=== PATIENT | female | born 1975 | race Caucasian/White ===

== ENCOUNTER 2022-01-31 12:12 | Emergency (ER) | payer OTHER, SELFPAY ==
[2022-01-31 12:16] VITALS: BP 131/83; PULSE 72; RESP 20; TEMP 36.6; O2SAT 100
--- NOTE | 2022-01-31 12:38 | ED.URI ---
HPI - URI/Sore Throat General Chief Complaint: Upper Respiratory Infection Stated Complaint: Ear Pain/Sore Throat Time Seen by Provider: 01/31/22 12:26 Source: patient and RN notes reviewed Mode of arrival: ambulatory Limitations: no limitations History of Present Illness HPI Narrative: Patient presents today with a 10-day history of nasal congestion and pressure, productive cough with white sputum, headache, rhinorrhea, shortness of breath. Denies fever. Patient has been taking Tylenol Cold medication, Mucinex without relief. History of COPD. Smokes half pack per day. MD elicited complaint: cough, nasal congestion and sinus pain Related Data Home Medications Medication Instructions Recorded Confirmed alprazolam 0.5 mg PO BID 01/31/22 01/31/22 armodafinil 250 mg PO DAILY 01/31/22 01/31/22 atorvastatin 20 mg PO DAILY 01/31/22 01/31/22 desvenlafaxine succinate 1 mg PO DAILY 01/31/22 01/31/22 fluoxetine 40 mg PO DAILY 01/31/22 01/31/22 metoprolol succinate 50 mg PO DAILY 01/31/22 01/31/22 umeclidinium-vilanterol [Anoro 1 inh INHALATION HS 01/31/22 01/31/22 Ellipta] zolpidem 10 mg PO DAILY 01/31/22 01/31/22 Allergies Allergy/AdvReac Type Severity Reaction Status Date / Time No Known Allergies Allergy Unverified 01/31/22 12:14 Review of Systems Review of Systems: CONSTITUTIONAL: Denies body aches, fever, chills, or sweats. EYES: Denies visual changes, redness, or discharge. ENT: Denies rhinorrhea, sore throat, or otalgia.+ Congestion, sinus pressure, rhinorrhea CARDIOVASCULAR: Denies chest pain, palpitations, or edema. RESPIRATORY: + Cough, shortness of breath GASTROINTESTINAL: Denies abdominal pain, nausea, vomiting, or diarrhea. GENITOURINARY: Denies dysuria or hematuria. SKIN: Denies rash, itching, or wounds. MUSCULOSKELETAL: Denies back pain, joint pain, or myalgia. NEUROLOGIC: Denies numbness, tingling, or weakness.+ Headache PSYCH: Denies depression or anxiety. [facility] Past Medical History Medical History (Updated 01/31/22 @ 12:42 by Kala Phelps, [facility], ) COPD (chronic obstructive pulmonary disease) High cholesterol Social History Social History (Updated 01/31/22 @ 12:39 by Kala Phelps, [facility], ) Smoking packs per day: 0.5 Smoking cigarettes per day: 10.0 Smoking status: Current every day smoker Tobacco type: cigarettes Comments At time of signature, I have reviewed and agree with nursing past medical, surgical, social and family history unless otherwise noted. Please see nursing chart for further information. There is no relevant family history pertinent to the presenting complaint Exam Narrative: GENERAL: Mildly ill-appearing, well-nourished, and in no acute distress. HEAD: Normocephalic, atraumatic. EYES: EOMI. No redness or drainage. Conjunctivae normal. ENT: Mucous membranes pink and moist. Nares congested. Bilateral frontal and maxillary sinus tenderness. No rhinorrhea. TMs normal bilaterally. Throat normal. Uvula midline. NECK: Normal AROM. Supple. No lymphadenopathy. CHEST: No respiratory distress. Clear to auscultation. HEART: Regular rate and rhythm. No murmur appreciated. Normal peripheral pulses. EXTREMITIES: Normal range of motion. No edema. SKIN: Warm, dry, no rash. Capillary refill normal. Normal skin turgor. NEURO: No focal deficits. Alert and oriented x3. Gait steady. PSYCH: Normal affect. No signs of depression or anxiety. Course Course Level of Care: Express Care Visit Vital Signs Vital signs: Vital Signs Temperature 97.9 F 01/31/22 12:16 Pulse Rate 72 01/31/22 12:16 Respiratory Rate 20 01/31/22 12:16 Blood Pressure 131/83 01/31/22 12:16 Pulse Oximetry 100 01/31/22 12:16 Temperature 97.9 F 01/31/22 12:16 Pulse Rate 72 01/31/22 12:16 Respiratory Rate 20 01/31/22 12:16 Blood Pressure 131/83 01/31/22 12:16 Pulse Oximetry 100 01/31/22 12:16 Reviewed. Pt has been instructed to follow up with her PCP jarret
== END 2022-01-31 12:45 | disposition home or self-care (01) ==
PROVIDERS: Emergency Provider Nurse Practitioner
DX: J44.1 Chronic obstructive pulmonary disease with (acute) exacerbation (principal); J01.90 Acute sinusitis, unspecified; E78.00 Pure hypercholesterolemia, unspecified; F17.200 Nicotine dependence, unspecified, uncomplicated
CPT/HCPCS: 99213; G0463

== ENCOUNTER 2022-10-11 08:16 | Emergency (ER) | payer OTHER, SELFPAY ==
[2022-10-11 08:45] VITALS: BP 123/77; PULSE 91; RESP 20; TEMP 37.2; O2SAT 100
--- NOTE | 2022-10-11 08:59 | ED.URI ---
HPI - URI/Sore Throat General Chief Complaint: Upper Respiratory Infection Stated Complaint: Ear Pain/Congestion Time Seen by Provider: 10/11/22 09:00 Source: patient, RN notes reviewed and old records reviewed Mode of arrival: ambulatory Limitations: no limitations History of Present Illness HPI Narrative: 47-year-old female who presents to [facility] with complaints known exposure to flu on Saturday with symptoms starting later that day which include ear pain, chills, fevers up to 101F, body aches, headache,cough and states that chest feels like it is on fire.Patient reports that she has been taking Coricidin brand decongestant. patient reports that she has not had Covid vaccinations or flu shot MD elicited complaint: other (flu symptoms) Onset (ago): day(s) (2) Pain scale (0-10): 8 Treatments prior to arrival: other (Coricidin cold medication) Related Data Home Medications Medication Instructions Recorded Confirmed alprazolam 0.5 mg tablet 0.5 mg PO BID 01/31/22 10/11/22 armodafinil 250 mg tablet 250 mg PO DAILY 01/31/22 10/11/22 atorvastatin 20 mg tablet 20 mg PO DAILY 01/31/22 10/11/22 desvenlafaxine succinate 50 mg 1 mg PO DAILY 01/31/22 10/11/22 tablet,extended release 24 hr fluoxetine 40 mg capsule 40 mg PO DAILY 01/31/22 10/11/22 metoprolol succinate 50 mg 50 mg PO DAILY 01/31/22 10/11/22 tablet,extended release 24 hr umeclidinium 62.5 mcg-vilanterol 1 inh inhalation HS 01/31/22 10/11/22 25 mcg/actuation powdr for inhalation (Anoro Ellipta) zolpidem 10 mg tablet 10 mg PO DAILY 01/31/22 10/11/22 Allergies Allergy/AdvReac Type Severity Reaction Status Date / Time No Known Allergies Allergy Verified 10/11/22 08:50 Review of Systems Review of Systems: CONSTITUTIONAL:Reports malaise, chills, sweats, or fever. EYES: Denies visual changes, redness, or discharge. ENT: Reports rhinorrhea, congestion, sinus pain, otalgia and sore throat. CARDIOVASCULAR: Denies chest pain, palpitations, or edema. RESPIRATORY: Reports cough.? Denies dyspnea. GASTROINTESTINAL: Denies abdominal pain, nausea, vomiting, diarrhea SKIN: Denies rash or itching. MUSCULOSKELETAL: Reports myalgia. NEUROLOGIC: Reports headache. All systems reviewed & are unremarkable except as noted in HPI and below PMFSH Past Medical History Medical History COPD (chronic obstructive pulmonary disease) High cholesterol Social History Social History Smoking packs per day: 0.5 Smoking cigarettes per day: 10.0 Smoking status: Current every day smoker Tobacco type: cigarettes Comments At time of signature, agree with nursing past medical, surgical, social and family history. There is no relevant family history pertinent to the presenting complaint Exam Narrative: GENERAL: Well-appearing, well-nourished, and in no acute distress. HEAD: Normocephalic EYES: PERRLA, conjunctivae clear ENT: Nares clear, turbinates edematous and erythematous, clear discharge. Mucous membranes moist. TM pearly ellington with dull light reflex bilaterally; no tragal tenderness. Oropharynx erythematous without lesions. Tonsils not enlarged and without exudate, no drooling, no hoarseness, no trismus, uvula midline.post nasal discharge NECK: Supple. No lymphadenopathy CHEST: Clear to auscultation, breath sounds equal. No wheezing, rhonchi, rales, or stridor. No respiratory distress, speaks in full sentences. dry cough, SAO2 100% on room air HEART: Regular rate and rhythm. No murmur heard. SKIN: Warm, dry, no rash. NEURO: Alert and oriented x3. PSYCH: Normal mood and affect Course Course Emergency Course: Patient is aware of diagnosis, understands and agrees to treatment plan.? Anticipatory guidance given.? Patient agrees to follow-up as directed and is aware of reasons to seek care at the emergency department. Portions of thi
== END 2022-10-11 09:44 | disposition home or self-care (01) ==
PROVIDERS: Emergency Provider Registered Nurse
DX: J11.1 Influenza due to unidentified influenza virus with other respiratory manifestations (principal); F17.210 Nicotine dependence, cigarettes, uncomplicated; J44.9 Chronic obstructive pulmonary disease, unspecified; E78.00 Pure hypercholesterolemia, unspecified
CPT/HCPCS: 99213; G0463

== ENCOUNTER 2023-01-20 11:58 | Emergency (ER) | payer OTHER, SELFPAY ==
[2023-01-20 12:18] VITALS: BP 123/86; PULSE 84; RESP 20; TEMP 36.8; O2SAT 96
[2023-01-20 12:24] VITALS: BP 123/86; PULSE 84; RESP 20; TEMP 36.8; O2SAT 96
--- NOTE | 2023-01-20 13:07 | ED.GENADULT ---
HPI - General Adult General Chief complaint: Headache Stated complaint: migraine / indegestion Source: patient Mode of arrival: ambulatory Limitations: no limitations History of Present Illness HPI narrative: Patient presents for evaluation of headache for the last 3 days. She has an underlying history of migraines and this feels similar. She has not had a headache in several years was not on any pharmacotherapy at home on a regular basis. She states the pain is global, throbbing, 8/10 in severity. She has associated photophobia, nausea and vomiting. She tried taking ibuprofen, Tylenol, Excedrin for her symptoms. Denies any neurological changes. Related Data Home Medications Medication Instructions Recorded Confirmed alprazolam 0.5 mg tablet 0.5 mg PO BID 01/31/22 01/20/23 armodafinil 250 mg tablet 250 mg PO DAILY 01/31/22 01/20/23 atorvastatin 20 mg tablet 20 mg PO DAILY 01/31/22 01/20/23 desvenlafaxine succinate 50 mg 1 mg PO DAILY 01/31/22 01/20/23 tablet,extended release 24 hr fluoxetine 40 mg capsule 40 mg PO DAILY 01/31/22 01/20/23 metoprolol succinate 50 mg 50 mg PO DAILY 01/31/22 01/20/23 tablet,extended release 24 hr umeclidinium 62.5 mcg-vilanterol 1 inh inhalation HS 01/31/22 01/20/23 25 mcg/actuation powdr for inhalation (Anoro Ellipta) zolpidem 10 mg tablet 10 mg PO DAILY 01/31/22 01/20/23 Allergies Allergy/AdvReac Type Severity Reaction Status Date / Time No Known Allergies Allergy Verified 01/20/23 12:22 Review of Systems Review of Systems: CONSTITUTIONAL: Denies fever, chills, or sweats. EYES: Reports photophobia. Denies drainage from the eyes ENT: Denies rhinorrhea, congestion, sore throat, or otalgia. CARDIOVASCULAR: Denies chest pain, palpitations, or edema. RESPIRATORY: Denies cough or dyspnea. GASTROINTESTINAL: Reports nausea and vomiting. Denies abdominal pain or diarrhea. GENITOURINARY: Denies dysuria or hematuria. SKIN: Denies rash or itching. MUSCULOSKELETAL: Denies back pain, joint pain, or myalgia. NEUROLOGIC: Reports headache. Denies numbness, dizziness, or weakness. PSYCHIATRIC: Denies anxiety or depression. [facility] Past Medical History Medical History (Updated 01/20/23 @ 13:44 by BARBARA RamseyP, ) COPD (chronic obstructive pulmonary disease) High cholesterol Migraine Surgical History Surgical History (Reviewed 01/20/23 @ 13:[address] [facility] [place], ) History of History of hysterectomy Family History Family History (Reviewed 01/20/23 @ 13:[address] [facility] [place], ) Mother Family history non-contributory Social History Social History (Updated 01/20/23 @ 13:[address] [facility] [place], ) Smoking packs per day: 0.5 Smoking cigarettes per day: 10.0 Smoking status: Current every day smoker Tobacco type: cigarettes Substance use: current Substance use type: marijuana Gender identity (if verbalized by the patient): Female Spiritual care concerns: No Exam Narrative: GENERAL: Well-appearing, well-nourished, and in no acute distress. HEAD: Normocephalic, atraumatic. EYES: Wearing sunglasses during exam. PERRLA and EOMI. ENT: Nares clear, no rhinorrhea or epistaxis. Mucous membranes moist. Oropharynx without tonsillar hypertrophy exudate or other lesions. Bilateral TMs pearly ellington nonbulging NECK: Supple. No adenopathy or masses. No carotid bruits or JVD CHEST: Clear to auscultation. No respiratory distress. No wheezes rales or rhonchi HEART: Regular rate and rhythm. No murmur heard. Normal peripheral pulses. ABDOMEN: Soft, nontender, nondistended, normal active bowel sounds. EXTREMITIES: Normal range of motion. No edema. SKIN: Warm, dry, no rash. NEURO: No focal deficits. Alert and oriented x3. PSYCH: Normal mood and affect. Course Course Emergency Course: THIS IS A 47-YEAR-OLD FEMALE WHO PRESENTED FOR EVALUATION OF A HEADACHE WHICH IS CONSISTENT WITH HER NORMAL MIGRAINE PATTERN. SHE WAS
[2023-01-20] MEDS: KETOROLAC (*BKC) 60 MG/2 ML VIAL IM (13:11)
[2023-01-20] MEDS: ONDANSETRON HCL ODT 4 MG TABLET PO (13:11)
== END 2023-01-20 13:49 | disposition home or self-care (01) ==
PROVIDERS: Emergency Provider Nurse Practitioner
DX: G43.909 Migraine, unspecified, not intractable, without status migrainosus (principal); J44.9 Chronic obstructive pulmonary disease, unspecified; F17.210 Nicotine dependence, cigarettes, uncomplicated
CPT/HCPCS: 96372; 99213; A9270; G0463; J1885

== ENCOUNTER 2025-01-02 12:16 | Emergency (ER) | payer OTHER, SELFPAY ==
--- OUTSIDE RECORDS SUMMARY | 2025-01-02 12:19 | XMS_ITS | Patient Health Summary ---
Author Organization [facility] Address [address] [place] [address] Care Team Providers Care Paper [employer]one Grader Name Role Phone Unavailable Primary Care Provider Unavailabl e Note from [facility],non-owned Affiliates and Associated Physician Practices is amultiple site organization consisting of ambulatory clinics and hospital sitesin [place], [place], [place] and [place]. This disclosure is being madepursuant to the Care Everywhere program and may not contain all information available regarding this patient. Last updated 18.[facility] Social History Tobacco Use Types Packs/Day Years Used Date Smoking Tobacco: Never Assessed Sex and Gender Information Value Date Recorded Sex Assigned at Not on file Gender Identity Not on file Sexual Orientation Not on file Procedures * DERMATOPATHOLOGY(Performed 09/08/2020) Results * DERMATOPATHOLOGY (09/08/2020 12:00 AM SE[employer]ONAL CUST[employer]ER SERVICE ASSOCIATE) Case Report Dermatopathology Report Case: [id number] Authorizing Provider: Liliana Kline MD Collected: 09/08/2020 12:00 AM Ordering Location: [facility] DermPath Lab Received: 09/08/2020 11:12 AM Pathologist: Balaji Gallegos MD Specimen: Skin, left eyelid margin 0 5:13 PM [facility] DERMATOPATHOLOGY [facility]ORAT[facility] Final Diagnosis Specimen A. SKIN, left eyelid margin: SEBORRHEIC KERATOSIS, IRRITATED (L82.0) 0 5:13 PM [facility] DERMATOPATHOLOGY [facility] Clinical History Crusted pink papule ISK R/O SCC. 0 5:13 PM [facility] DERMATOPATHOLOGY [facility] Gross Description Specimen A: Received is one formalin filled container labeled with the patient's name and designated left eyelid margin. The specimen consists of a shave measuring [id number]. Jar 0. 0 5:13 PM [facility] DERMATOPATHOLOGY [facility] Microscopic Description Specimen A. SKIN, left eyelid margin: There is acanthosis consisting of fairly uniform squamous cells with eosinophilic cytoplasm and squamous eddies. 0 5:13 PM [facility] DERMATOPATHOLOGY [facility]OR[facility] Disclaimer An external and internal positive and negative controls are appropriate for the histochemical, immunohistochemical and immunofluorescence stain(s) in this case (if any), except where stated explicitly. The performance characteristics of the stain(s) cited in this report were developed and its performance characteristic determined by the Dermatopathology Laboratory at [facility], directed by Dr. Bolivar Gallegos. These tests need not be, and therefore are not, approved by the [place] Food and Drug Administration. The tests are used for clinical purposes. Billing Codes Specimen Charges Stain Charges 69797 1 0 5:13 PM [facility]ERMATOPATH[facility]Y [facility] Embedded Images 0 5:13 PM [facility]ERMATOP[facility]Y [facility] Pathology/Cytolog y TISSUE SPECIMEN FROM SKIN / Unknown 09/08/2020 09/08/2020 11:12 AM SE[employer]ONAL CUST[employer]ER SERVICE ASSOCIATE Liliana Kline MD LAB - PATHOLOGY/CYTO LOGY ORDERABLES DERMATOPATHOLOGY LABORATORY [facility] - Department of Dermatology [address], [address] [phone]
--- OUTSIDE RECORDS SUMMARY | 2025-01-02 12:19 | XMS_ITS | Clinical Summary ---
Author Organization [facility] Address [address] [place] [address] Phone Care Team Providers Care Couturiere Name Role Phone JAIME SNIDER MD Primary Care Provider [phone] Reason for Visit and Chief Complaint The Chief Complaint is: Check up. She wants to talk about alergies. She has tried most otc meds Problems Includes: Problems addressed during this encounter and other active Problems Current Visit Onset Date Resolved Date Provider Viri n Status Esophagitis Chronic Reflux 02/14/2024 MARTA JOHNSON PA-C Active Last Documented On 02/14/2024 8:55AM ; [facility] Note: Unchanged Allergic Rhinitis 02/14/2024 MARTA JOHNSON PA-C Active Last Documented On 02/14/2024 8:55AM ; [facility] Note: Unchanged Hyperlipidemia 03/20/2022 THANH Estrada LIRIANOK INS PA-C Active Last Documented On 2 5:01PM ; [facility] Tobacco Use 06/21/2020 02/05/2023 MARTA JOHNSON PA-C R esolved Last Documented On 3 9:44AM ; [facility] Essential Hypertension Benign 09/27/2019 ANILA JOHNSON PA-C Inactive Last Documented On 2 7:17PM ; [facility] Tobacco Use 05/05/2017 KIRT LARSON MD Karey ctive Last Documented On 9 5:29PM ; [facility] Essential Hypertension Benign 05/25/2016 KIRT LARSON MD Active Last Documented On 6 11:45AM ; [facility] Chronic Bronchitis - Simple 05/25/2016 KIRT LARSON MD Active Last Documented On 7 8:53AM ; [facility] Tobacco Use 03/01/2016 KIRT LARSON MD Act sandie Last Documented On 7 8:54AM ; [facility] Past Visits Onset Date Resolved Date Provider Condition Status Bipolar Disorder Nos 07/01/2020 KIRT BLAIR MD Active Last Documented On 0 9:25AM ; [facility] Opioid Use - Uncomplicated 12/18/2019 KIRT HYMAN MD Active Last Documented On 0 3:16PM ; [facility] Cervicalgia 09/27/2019 KIRT LARSON MD Act sandie Last Documented On 9 10:46PM ; [facility] Chronic Daily Headache 11/12/2018 KIRT MCCLOUD MD Active Last Documented On 9 7:27PM ; [facility] Arthralgia Knee / Patella / Tibia / Fibula 09/01/2017 KIRT LARSON MD Active Last Documented On 7 5:29PM ; [facility] Sleep Disorder Circadian Rhy thm, Shift Work Type 03/01/2016 KIRT LARSON MD Active Last Documented On 6 10:28AM ; [facility] Adjustment Disorder with Anxiety 10/24/2015 RAZA LARSON MD Active Last Documented On 6 10:29AM ; [facility] Primary Insomnia 10/24/2015 KIRT Muniz Active Last Documented On 6 10:28AM ; [facility] Sciatica Right Sided 10/24/2015 KIRT BLAIR MD Active Last Documented On 6 10:29AM ; [facility] Plan of Treatment Start montelukast for allergy symptoms. Increase atorvastatin. Rybelsus samples given to try. Discussed 30 min before food/drink administration. Ubrelvy sample given. Encouraged patient to cut back on soda intake, increase water intake. RTC 3 months, sooner if needed. - Last Documented On 02/14/2024 9:28AM ; [facility] Pending Tests Order Diagnosis Results Due Ordering P rovider Therapy - Physical Therapy Back Lumbago with sciatica, right side 05/29/23 MARTA JOHNSON PA-C Last Documented On 3 9:35AM ; [facility] Radiology @ [facility] - CT Scan Lumbar Spine CT w/o contrast Lumbago with sciatica, right side 07/27/23 MARTA JOHNSON PA-C Last Documented On 3 9:43AM ; [facility] Assessments Includes: Assessments from this encounter Findings - [Z72.0 - Tobacco use] Tobacco use - Last Documented On 02/14/2024 9:28AM ; [facility] - [I10 - Essential (primary) hypertension] Benign essential hypertension - Last Documented On 02/14/2024 9:28AM ; [facility] - [J41.0 - Simple chronic bronchitis] Simple chronic bronchitis - Last Documented On 02/14/2024 9:28AM ; [facility] - [K21.00 - Gastro-esophageal reflux disease with esophagitis, without bleeding] Chronic reflux esophagitis - Last Documented On 02/14/2024 9:28AM ; [facility] - [E78.5 - Hyperlipidemia, unspecified] Hyperlipidemia - Last Documented On 02/14/2024 9:28AM ; [facility] Medical Equipment - Implanted Devices Includes: Current Devices No Medical Equipment Recorded Medications Includes: Medications discussed during this encounter and other current Medications Discontinued / Stopped on this date JAIME SNIDER MD on 11/18/2023 Zolpidem Tartrate 10 MG Oral Tablet Provi avery: JAIME SNIDER MD Diagnosis: Primary insomnia Last Documented On 8:56AM By Marta Johnson PA-C ; [facility] Ubrelvy 100 MG Oral Tablet Provider: Lorraine JOHNSON PA-C Diagnosis: Last Documented On 02/14/2024 8:28AM By Amirah MYERS ; [facility] Quviviq 25 MG Oral Tablet Provider: TOMMY JOHNSON PA-C Diagnosis: Primary insomnia Last Documented On 02/14/2024 8:27AM By Amirah MYERS ; [facility] New / Renewed during this visit MARTA JOHNSON PA-C on 02/14/2024 Zolpidem Tartrate 10 MG Oral Tablet Provider: MARTA Soto 30 day supply: 30 tablet, 0 refills Diagnosis: Primary insomnia TAKE 1 TABLET BY MOUTH EVERY DAY AT BEDTIME Pharmacy: [address], [address] - Last Documented On 4 8:10AM By Marta Johnson PA-C ; [facility] Omeprazole 20 MG Oral Capsule Delayed Release Provider: MARTA Berrios PA-C 30 day supply: 30 capsule, 5 refills Diagnosis: Gastro-esophageal reflux dis with esophagitis, without bleed TAKE 1 CAPSULE BY MOUTH EVERY DAY Pharmacy: [address], [address] - Last Documented On 4 8:57AM By Marta Johnson PA-C ; [facility] Atorvastatin Calcium 40 MG Oral Tablet Provider: MARTA JOHNSON PA-C 30 day supply: 30 tablet, 5 refills Diagnosis: Hyperlipidemia, unspecified One tablet at bed time Pharmacy: [facility] [address], [address] - Last Documented On 4 8:57AM By Marta Johnson PA-C ; [facility] Montelukast Sodium 10 MG Oral Tablet Provider: MARTA JOHNSON PA-C 30 day supply: 30 tablet, 5 refills Diagnosis: Allergic rhinitis, unspecified One tablet daily Pharmacy: [address], [address] - Last Documented On 4 8:57AM By Marta Johnson PA-C ; [facility] Rybelsus 3 MG Oral Tablet Provider: TOMMY JOHNSON PA-C 30 day supply: 30 tablet, 1 refills Diagnosis: Morbid (severe) obesity due to excess calories 1 tab daily Last Documented On 4 9:28AM By Marta Johnson PA-C ; [facility] Ubrelvy 100 MG Oral Tablet Provider: MARTA Soto 30 day supply: 2 tablet, 0 refills Diagnosis: Morbid (severe) obesity due to excess calories take 1 tab at onset of heada melly. repeat after 2 hours if needed Last Documented On 4 9:28AM By Marta Johnson PA-C ; [facility] Current Medications (continue as prescribed) Zolpidem Tartrate 10 MG Oral Tablet 04/10/2024 Provider: MARTA Soto Diagnosis: Primary insomnia TAKE 1 TABLET BY MOUTH EVERYDAY AT BEDTIME Last Documented On 4 11:00AM By Marta Johnson PA-C ; [facility] Atorvastatin Calcium 20 MG Oral Tablet 04/02/2024 Provider: MARTA Soto Diagnosis: Mixed hyperlipid emia TAKE 1 TABLET BY MOUTH EVERY DAY Last Documented On 4 8:24AM By Marta Johnson PA-C ; [facility] Ubrelvy 100 MG Oral Tablet 11/14/2023 Provider: MARTA Soto Diagnosis: Migraine w/o aur a, intractable, without status migrainosus take 1 tab at onset of migra ine. may repeat in 2 hours. max 2 tabs in 24 hours Last Documented On 4 3:43PM By Marta Johnson PA-C ; [facility] Metoprolol Succinate ER 50 MG Oral Tablet Extended Release 24 Hour 04/29/2023 Provider: MARTA HARRELL PA-C Diagnosis: Essential (prima ry) hypertension TAKE 1 TABLET BY MOUTH EVERY DAY Last Documented On 3 8:35AM By Marta Johnson PA-C ; [facility] Xanax 0.25 MG Oral Tablet 10/24/2022 Provider: Diagnosis: Bianca Lealan at [place] Last Documented On 2 9:53AM By Marta Johnson PA-C ; [facility] hydrOXYzine HCl 25 MG Oral Tablet 10/24/2022 Provide r: Diagnosis: Bianca Lealan at [place] Last Documented On 2 9:54AM By Marta Johnson PA-C ; [facility] Medications Administered Includes: Administered Medications from this encounter No Administered Medications Recorded Vital Signs Includes: Vital Signs from this encounter Vital Name 02/14/2024 08:26A Blood Pressure Sitting L 132/98 BP Cuff Size Regular Pulse Rate-Sitting (bpm) 90 Respiration Rate (breaths/min) 22 Temp-Oral (F) 98.1 Height (in) 62 Weight (lb) 185 Body Mass Index 33.8 Body Surface Area 1.8 Oxygen Saturation (%) 96 Last Documented: On 02/14/2024 8:30AM ; [facility] Results Includes: Results discussed during this encounter No Results Recorded For Specified Dates History of Present Illness Includes: History of Present Illness from this encounter JOANA LEDEZMA is a 48 year old female. - Allergy list reviewed - Medication list reviewed - Systemic symptoms - No head symptoms - Otolaryngeal symptoms - No cardiovascular symptoms - No pulmonary symptoms - No gastrointestinal symptoms - No genitourinary symptoms - No musculoskeletal symptoms - No psychological symptoms Patient in clinic for check up. She is doing well overall. She has tried OTC medications for allergy symptoms without relief. Would like to try rx montelukast. Patient was never sent increased dose of atorvastatin after last labs - sending today. She is needing ambien and omeprazole filled. Patient would like to discuss options for weight. She did see Courtney once but then needed to be rescheduled and has not been back. She was given oral medication that did not work. Patient did have mild success with ozempic in the past. She is walking laps at work multiple times/day. Patient states she does not eat much/practically doing intermittent fasting without trying. She does drink a lot of soda each day. Reports filling her 60oz cup TID with soda. Not drinking much water. Continues to smoke. Ubrelvy worked better for migraine. Patient states rx at pharmacy was >$150 and could not knot picker cloth. BP elevated today. Social History Description Last Updated Excessive carbohydrate intake 08/20/2023 Last Documented On 4 8:25AM ; [facility] Food and nutrition-related knowledge def icit 08/20/2023 Last Documented On 4 8:25AM ; [facility] Inappropriate diet and eating habits Last Documented On 4 8:25AM ; [facility] Alcohol --seldom 03/20/2022 Last Documented On 4 8:25AM ; [facility] Drug use --THC 2x/wks 03/20/2022 Last Documented On 4 8:25AM ; [facility] Smoking status : Current everyday smoker 1/2 ppd 03/20/2022 Last Documented On 4 8:25AM ; [facility] Current smoker 12/11/2021 Last Documented On 4 8:25AM ; [facility] Smoker 07/25/2020 Last Documented On 4 8:25AM ; [facility] Social history unchanged 10/24/2015 Last Documented On 4 8:25AM ; [facility] Currently 08/22/2015 Last Documented On 4 8:25AM ; [facility] Tobacco use 08/22/2015 Last Documented On 4 8:25AM ; [facility] Procedures and Surgical History Includes: Procedures from this encounter Procedures Code Diagnosis Performing Provider Service L ocation Service Date review of medications documented 1160F Last Documented On 4 8:25AM ; [facility] Medical History Includes: Medical History addressed during this encounter Description Last Updated LMP: 2002 10/08/2022 Last Documented On 4 8:25AM ; [facility] No recent change in medical history 09/28 Last Documented On 4 8:25AM ; [facility] Family History Includes: Family History addressed during this encounter Description Last Updated Family history unchanged 10/24/2015 Last Documented On 4 8:25AM ; [facility] Review of Systems Includes: Review of Systems from this encounter Systemic: No fever, no chills, and no recent weight change. Head: Headache and sinus pain. Neck: No neck pain. Otolaryngeal: No earache, no nasal discharge, and no sore throat. Cardiovascular: No chest pain or discomfort and no palpitations. Pulmonary: No dyspnea and no cough. Gastrointestinal: No nausea, no vomiting, no abdominal pain, and no melena. No diarrhea. Musculoskeletal: No localized joint pain. Neurological: No dizziness. Psychological: No anxiety and no depression. Mental Status Includes: Mental Status from this encounter Description No anxiety Functional Status Includes: Functional Status from this encounter No Functional Status Recorded Physical Exam Includes: Physical Exam from this encounter Allergies Includes: Active Allergies No Known Allergies Encounters Encounter Provider Location Date Check-In Time Check-Out Time Diagnosis CHECK UP MARTA JOHNSON PA-C [facility]- 02/14/20 24 8:22AM 8:51AM Chronic Bronchitis - Simple,Esophagit is Chronic Reflux,Essential Hypertension Benign,Hyperlipi demia,Assessment of Tobacco Use Insurance Includes: Active Insurance Policies Plan Name Member ID Group # Subscriber Relationship Effect sandie Dates 1 - [employer] [id number] RK LEDEZMA Self Clinical Notes Includes: Clinical Notes from this encounter * Progress note Date Encounter Last Documented by 02/14/2024 CHECK UP Last documented on 02/14/2024; 9:28 AM, MARTA JOHNSON PA-C; [facility] Active Problems & Conditions - F43.22 - Adjustment Disorder with Anxiety - J30.9 - Allergic Rhinitis - M25.569 - Arthralgia Knee / Patella / Tibia / Fibula - F31.9 - Bipolar Disorder Nos - M54.2 - Cervicalgia - J41.0 - Chronic Bronchitis - Simple - G44.89 - Chronic Daily Headache - K21.00 - Esophagitis Chronic Reflux - I10 - Essential Hypertension Benign - E78.5 - Hyperlipidemia - F11.90 - Opioid Use - Uncomplicated - F51.01 - Primary Insomnia - M54.31 - Sciatica Right Sided - G47.26 - Sleep Disorder Circadian Rhythm, Shift Work Type - Z72.0 - Tobacco Use Chief Complaint The Chief Complaint is: Check up. She wants to talk about alergies. She has tried most otc meds. History of Present Illness RK LEDEZMA is a 48 year old female. - Allergy list reviewed - Medication list reviewed - Systemic symptoms - No head symptoms - Otolaryngeal symptoms - No cardiovascular symptoms - No pulmonary symptoms - No gastrointestinal symptoms - No genitourinary symptoms - No musculoskeletal symptoms - No psychological symptoms Patient in clinic for check up. She is doing well overall. She has tried OTC medications for allergy symptoms without relief. Would like to try rx montelukast. Patient was never sent increased dose of atorvastatin after last labs - sending today. She is needing ambien and omeprazole filled. Patient would like to discuss options for weight. She did see Courtney once but then needed to be rescheduled and has not been back. She was given oral medication that did not work. Patient did have mild success with ozempic in the past. She is walking laps at work multiple times/day. Patient states she does not eat much/practically doing intermittent fasting without trying. She does drink a lot of soda each day. Reports filling her 60oz cup TID with soda. Not drinking much water. Continues to smoke. Ubrelvy worked better for migraine. Patient states rx at pharmacy was >$150 and could not knot picker cloth. BP elevated today. Current Medication - Atorvastatin Calcium 20 MG Oral Tablet TAKE 1 TABLET BY MOUTH EVERY DAY, 30 days, 11 refills - hydrOXYzine HCl 25 MG Oral Tablet Bianca Angel at [place], 0 days, 0 refills - Metoprolol Succinate ER 50 MG Oral Tablet Extended Release 24 Hour TAKE 1 TABLET BY MOUTH EVERY DAY, 30 days, 11 refills - Omeprazole 20 MG Oral Capsule Delayed Release TAKE 1 CAPSULE BY MOUTH EVERY DAY, 30 days, 5 refills - Ubrelvy 100 MG Oral Tablet take 1 tab at onset of migraine. may repeat in 2 hours. max 2 tabs in 24 hours, 30 days, 5 refills - Xanax 0.25 MG Oral Tablet One tablet twice a day Bianca Angel at [place], 0 days, 0 refills Past Medical/Surgical History Reported: No recent change in medical history and LMP: 2001. Social History Social history unchanged. Current diet: Inappropriate diet and eating habits, food and nutrition-related knowledge deficit, and excessive carbohydrate intake. Tobacco use: Current smoker, smoker, and smoking status: Current everyday smoker 1/2 ppd. Alcohol: Alcohol --seldom. Drug Use: Drug use --THC 2x/wks. Marital: Currently . Allergies - No Known Allergies Family History Family history unchanged Review Of Systems Systemic: No fever, no chills, and no recent weight change. Head: Headache and sinus pain. Neck: No neck pain. Otolaryngeal: No earache, no nasal discharge, and no sore throat. Cardiovascular: No chest pain or discomfort and no palpitations. Pulmonary: No dyspnea and no cough. Gastrointestinal: No nausea, no vomiting, no abdominal pain, and no melena. No diarrhea. Musculoskeletal: No localized joint pain. Neurological: No dizziness. Psychological: No anxiety and no depression. Physical Findings - Vitals taken 02/14/2024 08:26 am BP-Sitting L 132/98 mmHg BP Cuff Size Regular Pulse Rate-Sitting 90 bpm Respiration Rate 22 per min Temp-Oral 98.1 F Height 62 in Weight 185 lbs Body Mass Index 33.8 kg/m2 Body Surface Area 1.8 m2 Oxygen Saturation 96 % General Appearance: - Well developed. - Well nourished. - In no acute distress. Ears: General/bilateral: External Auditory Canal: - External auditory meatus normal. Tympanic Membrane: - Normal. Nose: General/bilateral: Discharge: - No nasal discharge. Sinus Tenderness: - No sinus tenderness. Pharynx: Oropharynx: - Normal. - Tonsils showed no abnormalities. Lungs: - Normal breath sounds/voice sounds. - No wheezing was heard. Cardiovascular: Heart Rate And Rhythm: - Normal. Murmurs: - No murmurs were heard. Abdomen: Auscultation: - Bowel sounds were normal. Palpation: - Abdominal non-tender. Assessment - [Z72.0 - Tobacco use] Tobacco use - [I10 - Essential (primary) hypertension] Benign essential hypertension - [J41.0 - Simple chronic bronchitis] Simple chronic bronchitis - [K21.00 - Gastro-esophageal reflux disease with esophagitis, without bleeding] Chronic reflux esophagitis - [E78.5 - Hyperlipidemia, unspecified] Hyperlipidemia Plan StartCited - Allergic rhinitis, unspecified Montelukast Sodium 10 MG tablet One tablet daily, 30 days, 5 refills EndCited StartCited - Gastro-esophageal reflux dis with esophagitis, without bleed Omeprazole 20 MG capsule TAKE 1 CAPSULE BY MOUTH EVERY DAY, 30 days, 5 refills EndCited StartCited - Hyperlipidemia, unspecified Atorvastatin Calcium 40 MG tablet One tablet at bed time, 30 days, 5 refills EndCited StartCited - Morbid (severe) obesity due to excess calories Rybelsus 3 MG tablet 1 tab daily, 30 days, 1 refills Ubrelvy 100 MG tablet take 1 tab at onset of headache. repeat after 2 hours if needed, 30 days, 0 refills EndCited StartCited - Primary insomnia Zolpidem Tartrate 10 MG tablet TAKE 1 TABLET BY MOUTH EVERYDAY AT BEDTIME, 30 days, 0 refills EndCited Start montelukast for allergy symptoms. Increase atorvastatin. Rybelsus samples given to try. Discussed 30 min before food/drink administration. Ubrelvy sample given. Encouraged patient to cut back on soda intake, increase water intake. RTC 3 months, sooner if needed. Practice Management Review of medications documented. Health Reminders - Assess Blood Pressure satisfied 02/14/2024. - Assess BMI satisfied 02/14/2024. - Assess Tobacco Use satisfied 02/14/2024.
--- OUTSIDE RECORDS SUMMARY | 2025-01-02 12:19 | XMS_ITS ---
Author Organization [facility] Address [address] [place] [address] Care Team Providers Care Engine Room Helper Name Role Phone Bianca Angel Primary Care Provider REASON FOR VISIT New Refill Request Social History Sex Assigned At : Social History Observation Description Sex Assigned At Female Encounters Encounter Location Date Provider Diagnosis [address] [place] [address] 12/31/2024 Bianca Angel Plan Of Treatment Next Appt Details Provider Name:Bianca william, 01/11/2025 03:00:00 PM, [address] [place] [address] , [place], [address], Progress Notes * PER CarolineDOB:1975 ( 49 yo F)Acc No.[id number]:12/31/2024 Patient: Caroline DAUGHERTY :1975 A ge:49 Y S ex:Female Address:[address] [place] [address], [id number] * true * Date: Generated for Printi ng/Faxing/eTransmitting on: 0 01/02/2025 12:18 PM PAID SEARCH MANAGER
--- OUTSIDE RECORDS SUMMARY | 2025-01-02 12:19 | XMS_ITS ---
Author Organization [facility] Address [address] [place] [address] Care Team Providers Care Sql Ssrs Ssis Developer Name Role Phone Bianca Angel Primary Care Provider REASON FOR VISIT New Refill Request Medications Medication SIG (Take, Route, Fr equency, Duration) Notes Start Date End Date Status ALPRAZolam 0.25 MG 1 tablet Orally Two to Three times daily for 11 days As needed 12/31/2024 Active Armodafinil 200 MG 1.5 tablet Orally On ce a day for 11 days 12/31/2024 Active rOPINIRole HCl 0.5 MG 1 tablet 1 hour be fore bedtime Orally Once a day for 11 days Ac tive Social History Sex Assigned At : Social History Observation Description Sex Assigned At Female Encounters Encounter Location Date Provider Diagnosis [address] [place] [address] 12/31/2024 Bianca Angel Bipolar 1 disorder F31.9 ; Generalized anxiety disorder F41.1 and Restless leg syndrome G25.81 Assessments Encounter Date Diagnosis (ICD Code) Assessment Notes Treatment Notes Treatment Clinical Notes Section Notes 12/31/2024 Bipolar 1 disorder (ICD-10 - F31.9) 12/31/2024 Generalized anxiety disorder (ICD-10 - F41.1) 12/31/2024 Restless leg syndrome (ICD-10 - G25.81) Plan Of Treatment Medication Medication Name Sig Start Date Stop Date Notes ALPRAZolam 0.25 MG 1 tablet Orally Two to Three times daily for 11 days 12/31/2024 Armodafinil 200 MG 1.5 tablet Orally On ce a day for 11 days 12/31/2024 rOPINIRole HCl 0.5 MG 1 tablet 1 hour be fore bedtime Orally Once a day for 11 days Next Appt Details Provider Name:Bianca Lealesperanza william, 01/11/2025 03:00:00 PM, [address] [facility] , [place], [address], Progress Notes * DARIEN, TrishaDOB:1975 ( 49 yo F)Acc No.[id number]:12/31/2024 Patient: Caroline DAUGHERTY :1975 A ge:49 Y S ex:Female Address:[address] [place] [address], [address] * Refills Refill Armodafinil Tablet, 200 MG, Orally, 16.5 Tablet, 1.5 tablet, Once a day, 11 days, Refills=0 Refill ALPRAZolam Tablet, 0.25 MG, Orally, 27.5, 1 tablet, Two to Three times daily, 11 days, Refills=0 Refill rOPINIRole HCl Tablet, 0.5 MG, Orally, 11, 1 tablet 1 hour before bedtime, Once a day, 11 days, Refills=0 * true * Date: Generated for Seda horta/Daquan/Genevaitting on: 0 01/02/2025 12:19 PM STRUCTURAL FITTER
--- OUTSIDE RECORDS SUMMARY | 2025-01-02 12:19 | XMS_ITS ---
Care Plan - [facility] Created on: January 02, 2025 RK LEDEZMA : 1975 Sex: Female Author Organization [facility] Address [address] [place] [address] Phone Care Team Providers Care Sales Representative Printing Name Role Phone AGATHA ANDRADE, JAIME Dorado Primary Care Provider [phone]
--- OUTSIDE RECORDS SUMMARY | 2025-01-02 12:19 | XMS_ITS | Clinical Summary ---
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 Name Role Phone JAIME SNIDER MD Primary Care Provider [phone] Reason for Visit and Chief Complaint [Patient Encounter] Problems Includes: Problems addressed during this encounter and other active Problems All Visits Onset Date Resolved Date Provider Condition S tatus Esophagitis Chronic Reflux 02/14/2024 ELOISA STOREY PA-C Active Last Documented On 02/14/2024 8:55AM ; [facility] Note: Unchanged Allergic Rhinitis 02/14/2024 ELOISA STOREY PA-C Active Last Documented On 02/14/2024 8:55AM ; [facility] Note: Unchanged Hyperlipidemia 03/20/2022 THANH SAEED PA-C Active Last Documented On 2 5:01PM ; [facility] Bipolar Disorder Nos 07/01/2020 KIRT BLAIR MD Active Last Documented On 0 9:25AM ; [facility] Opioid Use - Uncomplicated 12/18/2019 KIRT HYMAN MD Active Last Documented On 0 3:16PM ; [facility] Cervicalgia 09/27/2019 KIRT LARSON MD Act sandie Last Documented On 9 10:46PM ; [facility] Chronic Daily Headache 11/12/2018 KIRT MCCLOUD MD Active Last Documented On 9 7:27PM ; [facility] Arthralgia Knee / Patella / Tibia / Fibula 09/01/2017 KIRT LARSON MD Active Last Documented On 7 5:29PM ; [facility] Essential Hypertension Benign 05/25/2016 KIRT LARSON MD Active Last Documented On 6 11:45AM ; [facility] Chronic Bronchitis - Simple 05/25/2016 KIRT LARSON MD Active Last Documented On 7 8:53AM ; [facility] Sleep Disorder Circadian Rhy thm, Shift Work Type 03/01/2016 KIRT LARSON MD Active Last Documented On 6 10:28AM ; [facility] Tobacco Use 03/01/2016 KIRT LARSON MD Act sandie Last Documented On 7 8:54AM ; [facility] Adjustment Disorder with Anxiety 10/24/2015 RAZA LARSON MD Active Last Documented On 6 10:29AM ; [facility] Primary Insomnia 10/24/2015 KIRT Muniz Active Last Documented On 6 10:28AM ; [facility] Sciatica Right Sided 10/24/2015 KIRT BLAIR MD Active Last Documented On 6 10:29AM ; [facility] Plan of Treatment No Plan of Treatment Recorded Assessments Includes: Assessments from this encounter No Assessments Recorded Medical Equipment - Implanted Devices Includes: Current Devices No Medical Equipment Recorded Medications Includes: Medications discussed during this encounter and other current Medications Current Medications (continue as prescribed) Zolpidem Tartrate 10 MG Oral Tablet 04/10/2024 Provider: ELIOSA Soto Diagnosis: Primary insomnia TAKE 1 TABLET BY MOUTH EVERYDAY AT BEDTIME Last Documented On 4 11:00AM By Eloisa Storey PA-C ; [facility] Atorvastatin Calcium 20 MG Oral Tablet 04/02/2024 Provider: ELOISA Soto Diagnosis: Mixed hyperlipid emia TAKE 1 TABLET BY MOUTH EVERY DAY Last Documented On 4 8:24AM By Eloisa Storey PA-C ; [facility] Omeprazole 20 MG Oral Capsule Delayed Release 02/14/2024 Provider: ELOISA Berrios PA-C Diagnosis: Gastro-esophagea l reflux dis with esophagitis, without bleed TAKE 1 CAPSULE BY MOUTH EVERY DAY Last Documented On 4 8:57AM By Eloisa Storey PA-C ; [facility] Atorvastatin Calcium 40 MG Oral Tablet 02/14/2024 Provider: ELOISA STOREY PA-C Diagnosis: Hyperlipidemia, unspecified One tablet at bed time Last Documented On 4 8:57AM By Eloisa Storey PA-C ; [facility] Montelukast Sodium 10 MG Oral Tablet 02/14/2024 Provider: ELOISA Soto Diagnosis: Allergic rhiniti s, unspecified One tablet daily Last Documented On 4 8:57AM By Eloisa Storey PA-C ; [facility] Rybelsus 3 MG Oral Tablet 02/14/2024 Provider: TOMMY STOREY PA-C Diagnosis: Morbid (severe) obesity due to excess calories 1 tab daily Last Documented On 4 9:28AM By Eloisa Storey PA-C ; [facility] Ubrelvy 100 MG Oral Tablet 02/14/2024 Provider: ELOISA Soto Diagnosis: Morbid (severe) obesity due to excess calories take 1 tab at onset of heada melly. repeat after 2 hours if needed Last Documented On 4 9:28AM By Eloisa Storey PA-C ; [facility] Ubrelvy 100 MG Oral Tablet 11/14/2023 Provider: ELOISA Soto Diagnosis: Migraine w/o aur a, intractable, without status migrainosus take 1 tab at onset of migra ine. may repeat in 2 hours. max 2 tabs in 24 hours Last Documented On 4 3:43PM By Eloisa Storey PA-C ; [facility] Metoprolol Succinate ER 50 MG Oral Tablet Extended Release 24 Hour 04/29/2023 Provider: ELOISA HARRELL PA-C Diagnosis: Essential (prima ry) hypertension TAKE 1 TABLET BY MOUTH EVERY DAY Last Documented On 3 8:35AM By Eloisa Storey PA-C ; [facility] Xanax 0.25 MG Oral Tablet 10/24/2022 Provider: Diagnosis: [facility] Last Documented On 2 9:53AM By Eloisa Storey PA-C ; [facility] hydrOXYzine HCl 25 MG Oral Tablet 10/24/2022 Provide r: Diagnosis: Bianca [facility] Last Documented On 2 9:54AM By Eloisa Storey PA-C ; [facility] Medications Administered Includes: Administered Medications from this encounter No Administered Medications Recorded Results Includes: Results discussed during this encounter No Results Recorded For Specified Dates History of Present Illness Includes: History of Present Illness from this encounter No History of Present Illness Recorded Social History No Social History Recorded - Smoking Status Unknown Medical History Includes: Medical History addressed during this encounter No Medical History Recorded Family History Includes: Family History addressed during this encounter No Family History Recorded Review of Systems Includes: Review of Systems from this encounter No Review of Systems Recorded Mental Status Includes: Mental Status from this encounter No Mental Status Recorded Functional Status Includes: Functional Status from this encounter No Functional Status Recorded Physical Exam Includes: Physical Exam from this encounter No Physical Exam Recorded Allergies Includes: Active Allergies No Known Allergies Encounters Encounter Provider Location Date Check-In Time Check-Out Time Diagnosis [Patient Encounter] AZIZA GRAHAM MD 06/11/2023 3:50PM 11:59PM Insurance Includes: Active Insurance Policies Plan Name Member ID Group # Subscriber Relationship Effect sandie Dates 1 - [employer] [id number] RK Peters NULL Self Clinical Notes Includes: Clinical Notes from this encounter No Clinical Notes Recorded
--- OUTSIDE RECORDS SUMMARY | 2025-01-02 12:19 | XMS_ITS | Clinical Summary ---
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 Name Role Phone JAIME SNIDER MD Primary Care Provider [phone] Reason for Visit and Chief Complaint The Chief Complaint is: Obesity Problems Includes: Problems addressed during this encounter and other active Problems Current Visit Onset Date Resolved Date Provider Conditio n Status Tobacco Use 06/21/2020 02/05/2023 MARTA STOREY PA-C R esolved Last Documented On 3 9:44AM ; [facility] Tobacco Use 05/05/2017 KIRT LARSON MD [place] ct[place] Last Documented On 9 5:29PM ; [facility] Tobacco Use 03/01/2016 KIRT LARSON MD Act sandie Last Documented On 7 8:54AM ; [facility] Past Visits Onset Date Resolved Date Provider Condition Status Esophagitis Chronic Reflux 02/14/2024 MARTA STOREY PA-C Active Last Documented On 02/14/2024 8:55AM ; [facility] Note: Unchanged Allergic Rhinitis 02/14/2024 MARTA STOREY PA-C Active Last Documented On 02/14/2024 8:55AM ; [facility] Note: Unchanged Hyperlipidemia 03/20/2022 THANH SAEED PA-C Active Last Documented On 2 5:01PM ; [facility] Bipolar Disorder Nos 07/01/2020 KIRT BLAIR MD Active Last Documented On 0 9:25AM ; [facility] Opioid Use - Uncomplicated 12/18/2019 KIRT HYMAN MD Active Last Documented On 0 3:16PM ; [facility] Cervicalgia 09/27/2019 KIRT LARSON MD Act sandie Last Documented On 9 10:46PM ; [facility] Chronic Daily Headache 11/12/2018 KIRT MCLCOUD MD Active Last Documented On 9 7:27PM ; [facility] Arthralgia Knee / Patella / Tibia / Fibula 09/01/2017 KIRT LARSON MD Active Last Documented On 7 5:29PM ; [facility] Essential Hypertension Benign 05/25/2016 KIRT LARSON MD Active Last Documented On 6 11:45AM ; [facility] Chronic Bronchitis - Simple 05/25/2016 KIRT LARSON MD Active Last Documented On 7 8:53AM ; [facility] Sleep Disorder Circadian Rhy thm, Shift Work Type 03/01/2016 KIRT LARSON MD Active Last Documented On 6 10:28AM ; [facility] Adjustment Disorder with Anxiety 10/24/2015 RAZA LARSON MD Active Last Documented On 6 10:29AM ; [facility] Primary Insomnia 10/24/2015 KIRT Muniz Active Last Documented On 6 10:28AM ; [facility] Sciatica Right Sided 10/24/2015 KIRT BLAIR MD Active Last Documented On 6 10:29AM ; [facility] Plan of Treatment 1538 Calories Per Day Carbohydrate 154 g 40.1% Protein 115 g 29.9% Fat 51 g 30.0% [facility] Follow a low carbohydrate meal plan that is macronutrient focused with portion control as discussed. Macros Calculated today and handout provided. You will need to count your macros and keep track of your food. Behavioral counseling with [facility] provided today. Exercise Prescribed as follows 30 minutes of exercise 5 days weekly consecutively for a total of 150 minutes of exercise. I recommend the use of a tracking daelso like [employer], [employer], Fooducate or Lose It to track food and activity and water intake. Water intake should be 64 ounces daily. I recommend you journal to track feelings about food, stress, activity. Follow up in the office in 1 month progress-and reinforcement. This meal plan is one that limits not restricts; carbohydrates, calories, sugar and fats primarily found in sugary foods, junk food, pasta, and bread. And encourages eating protein-rich whole foods, healthy fats and vegetables. Basics Eat: Meat, fish, eggs, healthy grains in minimal portions, vegetables growing above ground and natural fats (like butter). Limit or omit: Sugar and starchy foods (like bread, pasta, rice, beans and potatoes). Eat when you're hungry and stop when you're satisfied. It can be that simple. Tips/Guidance for Planning Meals and Snacks: Meat: Any type: Beef, pork, ramos, game, poultry, etc. Feel free to eat the fat in the meat as well as the skin on the chicken. Fish and seafood: All kinds: Fatty fish such as salmon, mackerel, sardines or espinal are great, and might even have health benefits due to high amounts of omega-3 fatty acids. Avoid breading. Eggs: All kinds: Boiled, fried, scrambled, omelets, etc. Natural fats and high-fat sauces: Using butter and cream for cooking can make your low-carb foods taste better. Coconut oil or olive oil are also good options. Vegetables that grow above ground: Cauliflower, broccoli, cabbage, [place] sprouts, kale, collards, bok renee, spinach, asparagus, zucchini, eggplant, olives, mushrooms, cucumber, avocado (technically a fruit but usually included with vegetables), onions, peppers, tomatoes, lettuce, other kinds of leafy greens, etc. These are lowest in net carbs and can be enjoyed at all levels of carb restriction. Dairy products: Feel free to choose full-fat options like real butter, cream (40% fat), sour cream, Bangladeshi yogurt and high-fat cheeses, which can help you enjoy delicious food while losing weight. Be careful with all milk, as it contains a lot of milk sugar. Nuts: Great for a treat (in moderation) instead of popcorn, candy or chips. Berries: Okay in moderation, if you do not need to be super strict with carbs. - Last Documented On 08/20/2023 2:48PM ; [facility] Instructions to patient Intervention and counseling on cessation of tobacco use Last Documented On 3 11:03AM ; [facility] Lose weight Last Documented On 3 11:01AM ; [facility] Education and Decision Aids were provided during visit for: Patient education about diet anshu compliance Last Documented On 3 11:01AM ; [facility] Patient education about meal planning Last Documented On 3 11:01AM ; [facility] Education about modifying re cipes Last Documented On 3 11:01AM ; [facility] Education about changing eat ing habits Last Documented On 3 11:01AM ; [facility] Dietary strategies when eati ng out Last Documented On 3 11:01AM ; [facility] Education about reading food labels Last Documented On 3 11:01AM ; [facility] Patient education about a sp ecial diet Low Carbohydrate Macronutrient Controlled meal plan 3 meals daily with 2 snacks Last Documented On 3 11:01AM ; [facility] Patient education about low carbohydrate diet with portion control and macronutrition Last Documented On 3 11:01AM ; [facility] Educational literature on di et given Last Documented On 3 11:01AM ; [facility] Education, guidance, and cou nseling about dietary management Last Documented On 3 11:01AM ; [facility] Assessments Includes: Assessments from this encounter Findings - [E66.01 - Morbid (severe) obesity due to excess calories] Obesity - Last Documented On 08/20/2023 2:48PM ; [facility] Instructions Includes: Instructions from this encounter Instructions to patient Intervention and counseling on cessation of tobacco use Last Documented On 3 11:03AM ; [facility] Lose weight Last Documented On 3 11:01AM ; [facility] Education and Decision Aids were provided during visit for: Patient education about diet anshu compliance Last Documented On 3 11:01AM ; [facility] Patient education about meal planning Last Documented On 3 11:01AM ; [facility] Education about modifying re cipes Last Documented On 3 11:01AM ; [facility] Education about changing eat ing habits Last Documented On 3 11:01AM ; [facility] Dietary strategies when eati ng out Last Documented On 3 11:01AM ; [facility] Education about reading food labels Last Documented On 3 11:01AM ; [facility] Patient education about a sp ecial diet Low Carbohydrate Macronutrient Controlled meal plan 3 meals daily with 2 snacks Last Documented On 3 11:01AM ; [facility] Patient education about low carbohydrate diet with portion control and macronutrition Last Documented On 3 11:01AM ; [facility] Educational literature on di et given Last Documented On 3 11:01AM ; [facility] Education, guidance, and cou nseling about dietary management Last Documented On 3 11:01AM ; [facility] Medical Equipment - Implanted Devices Includes: Current Devices No Medical Equipment Recorded Medications Includes: Medications discussed during this encounter and other current Medications Discontinued / Stopped on this date MARTA STOREY PA-C on 05/28/2023 traMADol HCl 50 MG Oral Tablet Provider: MARTA oSto Diagnosis: Lumbago with sci atica, right side Last Documented On 08/20/2023 11:06AM By Yifan MYERS ; [facility] Vyleesi 1.75 MG/0.3ML Subcut aneous Solution Auto-injector Provider: MARTA STOREY PA-C Diagnosis: Last Documented On 08/20/2023 11:06AM By Yifan MYERS ; [facility] Armodafinil 250 MG Oral Tablet Provider: Diagnosis: Last Documented On 08/20/2023 11:05AM By Yifan MYERS ; [facility] Anoro Ellipta 62.5-25 MCG/INH Inhalation Aerosol Powder Breath Activated Provider: KIRT Bermeo MD Diagnosis: Simple chronic b ronchitis Last Documented On 08/20/2023 11:05AM By Yifan MYERS ; [facility] Current Medications (continue as prescribed) Zolpidem Tartrate 10 MG Oral Tablet 04/10/2024 Provider: MARTA Soto Diagnosis: Primary insomnia TAKE 1 TABLET BY MOUTH EVERYDAY AT BEDTIME Last Documented On 4 11:00AM By Marta Storey PA-C ; [facility] Atorvastatin Calcium 20 MG Oral Tablet 04/02/2024 Provider: MARTA Soto Diagnosis: Mixed hyperlipid emia TAKE 1 TABLET BY MOUTH EVERY DAY Last Documented On 4 8:24AM By Marta Storey PA-C ; [facility] Omeprazole 20 MG Oral Capsule Delayed Release 02/14/2024 Provider: MARTA Berrios PA-C Diagnosis: Gastro-esophagea l reflux dis with esophagitis, without bleed TAKE 1 CAPSULE BY MOUTH EVERY DAY Last Documented On 4 8:57AM By Marta Storey PA-C ; [facility] Atorvastatin Calcium 40 MG Oral Tablet 02/14/2024 Provider: MARTA STOREY PA-C Diagnosis: Hyperlipidemia, unspecified One tablet at bed time Last Documented On 4 8:57AM By Marta Storey PA-C ; [facility] Montelukast Sodium 10 MG Oral Tablet 02/14/2024 Provider: MARTA Soto Diagnosis: Allergic rhiniti s, unspecified One tablet daily Last Documented On 4 8:57AM By Marta Storey PA-C ; [facility] Rybelsus 3 MG Oral Tablet 02/14/2024 Provider: TOMMY STOREY PA-C Diagnosis: Morbid (severe) obesity due to excess calories 1 tab daily Last Documented On 4 9:28AM By Marta Storey PA-C ; [facility] Ubrelvy 100 MG Oral Tablet 02/14/2024 Provider: MARTA Soto Diagnosis: Morbid (severe) obesity due to excess calories take 1 tab at onset of heada melly. repeat after 2 hours if needed Last Documented On 4 9:28AM By Marta Storey PA-C ; [facility] Ubrelvy 100 MG Oral Tablet 11/14/2023 Provider: MARTA Soto Diagnosis: Migraine w/o aur a, intractable, without status migrainosus take 1 tab at onset of migra ine. may repeat in 2 hours. max 2 tabs in 24 hours Last Documented On 4 3:43PM By Marta Storey PA-C ; [facility] Metoprolol Succinate ER 50 MG Oral Tablet Extended Release 24 Hour 04/29/2023 Provider: MARTA HARRELL PA-C Diagnosis: Essential (prima ry) hypertension TAKE 1 TABLET BY MOUTH EVERY DAY Last Documented On 3 8:35AM By Marta Storey PA-C ; [facility] Xanax 0.25 MG Oral Tablet 10/24/2022 Provider: Diagnosis: [facility] [place] Last Documented On 2 9:53AM By Marta Storey PA-C ; [facility] hydrOXYzine HCl 25 MG Oral Tablet 10/24/2022 Provide r: Diagnosis: Bian[facility] [place] Last Documented On 2 9:54AM By Marta Storey PA-C ; [facility] Medications Administered Includes: Administered Medications from this encounter No Administered Medications Recorded Vital Signs Includes: Vital Signs from this encounter Vital Name 08/20/2023 11:01A Blood Pressure Sitting (mmHg) 132/64 Pulse Rate-Sitting (bpm) 69 Respiration Rate (breaths/min) 20 Temp-Oral (F) 98.1 Height (in) 62 Weight (lb) 177 Body Mass Index 32.4 Body Surface Area 1.8 Oxygen Saturation (%) 96 Last Documented: On 08/20/2023 11:02A M ; [facility] Results Includes: Results discussed during this encounter No Results Recorded For Specified Dates History of Present Illness Includes: History of Present Illness from this encounter JOANA LEDEZMA is a 48 year old female. Source of patient information was patient - Dietary weight loss required duration 3-6 months - Allergy list reviewed - Problem list reviewed - Medication reconciliation performed - Medication reconciliation performed - Medication list reviewed Here today for medical nutritional counseling and lifestyle management for obesity with co-morbidity. PMHx, medication list and pertinent lab work reviewed. Initial: Weight 177 Height 62 BMI 32.4 Neck 14 Chest/Bra Band 39 Waist 39 Hip 42 What do you feel your weight maybe holding you back from doing? a lot of stuff- self esteem, chronic inflammation and pain-mood and sleep How much weight would you like to lose to help you reach your goals? 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 Y 20+ YEARS Major Life Events that caused weight gain ? NO How long have you been trying to lose weight? YO-YO FOR MANY YEARS CURRENT WEIGHT-LOSS MANAGEMENT EFFORTS Physical activity _Y__tried in the past __N_currently doing it Healthy eating _Y__tried in the past __N_currently doing it Over the counter products _Y__tried in the past _N__currently doing it Prescription medication __Y_tried in the past __N_currently doing it ___Y__interested in it Commercial weight loss programs _N__tried in the past ___currently doing it Bariatric Surgery _N__tried in the past _N__currently doing it ___N__interested in it CURRENT EATING AND ACTIVITY ROUTINES Eat 3 meals per day__Y_ Eat more than 3 meals a day_N__ Frequent snacker__N_ Emotional eater_N__ Healthy eater__N_ Binge eater_Y__ Constant dieter_N__ Limiting portion sizes__Y_ Cooks meals at home___Y__ What 80% of meals are eaten in the home/or prepared in the home Uses meal replacement shakes/bars__N_ Avoids sugar_N__ Track activity and calories_Y__ Reads food labels_N__ Approximately how often do you spend time doing physical activity such as going for a walk, yard work, house work or workout? ALL DAY LONG-ACTIVE JOB Time spent on this patient for E/M including assessment, education and plan of care, reviewing pertinent labs, medical history and other medical records and documentation total 35 minutes. Social History Description Last Updated Excessive carbohydrate intake 08/20/2023 Last Documented On 3 2:48PM ; [facility] Food and nutrition-related knowledge def icit 08/20/2023 Last Documented On 3 2:48PM ; [facility] Inappropriate diet and eating habits Last Documented On 3 2:48PM ; [facility] No physical disability ~Works at [employer] in [place] 04/05/2022 Last Documented On 3 11:01AM ; [facility] Alcohol --seldom 03/20/2022 Last Documented On 3 11:01AM ; [facility] Drug use --THC 2x/wks 03/20/2022 Last Documented On 3 11:01AM ; [facility] Smoking status : Current everyday smoker 1/2 ppd 03/20/2022 Last Documented On 3 11:01AM ; [facility] Current smoker 12/11/2021 Last Documented On 3 11:01AM ; [facility] Good exercise habits 10/24/2020 Last Documented On 3 11:01AM ; [facility] No caffeine use 10/24/2020 Last Documented On 3 11:01AM ; [facility] No family problems 10/24/2020 Last Documented On 3 11:01AM ; [facility] No interpersonal problems 10/24/2020 Last Documented On 3 11:01AM ; [facility] No job change 10/24/2020 Last Documented On 3 11:01AM ; [facility] No recent financial changes 10/24/2020 Last Documented On 3 11:01AM ; [facility] No recent legal problems 10/24/2020 Last Documented On 3 11:01AM ; [facility] No work-related circumstances 10/24/2020 Last Documented On 3 11:01AM ; [facility] Not using alcohol 10/24/2020 Last Documented On 3 11:01AM ; [facility] Smoker 07/25/2020 Last Documented On 3 11:01AM ; [facility] Social history unchanged 10/24/2015 Last Documented On 3 11:01AM ; [facility] Currently 08/22/2015 Last Documented On 3 11:01AM ; [facility] Tobacco use 08/22/2015 Last Documented On 3 11:01AM ; [facility] Procedures and Surgical History Includes: Procedures from this encounter Procedures Code Diagnosis Performing Provider Service Location Service Date controlled carbohydrate diet and macronutritionally focused protion control Last Documented On 3 11:01AM ; [facility] medical nutrition therapy Last Documented On 3 11:01AM ; [facility] medical nutrition therapy, i nitial assessment and intervention, each 15 minutes [id number] Last Documented On 3 11:01AM ; [facility] plan of care reviewed and agreed to by t silvestre patient Last Documented On 3 11:01AM ; [facility] 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 4000F Last Documented On 3 11:03AM ; [facility] food diary Last Documented On 3 11:01AM ; [facility] use of tobacco assessment performed 1000F Last Documented On 3 11:01AM ; [facility] patient screened for future fall risk 3288F Last Documented On 3 11:01AM ; [facility] review of medications documented 1160F Last Documented On 3 11:01AM ; [facility] counseling about safety issues Last Documented On 3 11:01AM ; [facility] assessment of substance use performed Last Documented On 3 11:01AM ; [facility] follow-up visit in one month Last Documented On 3 11:01AM ; [facility] recommended change in carbohydrate intak e Last Documented On 3 11:01AM ; [facility] encouragement to exercise Last Documented On 3 11:01AM ; [facility] screening for safety concerns Last Documented On 3 11:01AM ; [facility] MNT, subsequent treatment fo r change in diagnosis, individual, [id number]-[id number], each 15 minutes Last Documented On 3 11:01AM ; [facility] weight management program Last Documented On 3 11:01AM ; [facility] weight reduction regimen Last Documented On 3 11:01AM ; [facility] actions to lose weight Last Documented On 3 11:01AM ; [facility] carbohydrate counting Last Documented On 3 11:01AM ; [facility] exercising to lose weight Last Documented On 3 11:01AM ; [facility] restricting food intake Last Documented On 3 11:01AM ; [facility] Urged Exercise and Diet 5 da ys weekly for 30 minutes each day for a total of 150 minutes per week Last Documented On 3 11:01AM ; [facility] Carbohydrate counting: Low C arbohydrate Macronutrient Controlled meal plan 3 meals daily with 2 snacks Last Documented On 3 11:01AM ; [facility] Clinical summary provided to patient Last Documented On 3 11:01AM ; [facility] Medical History Includes: Medical History addressed during this encounter Description Last Updated Not taking medication to lose weight Last Documented On 3 2:48PM ; [facility] LMP: 200110/08/2022 Last Documented On 3 11:01AM ; [facility] No recent change in medical history 09/28 Last Documented On 3 11:01AM ; [facility] No reported medical history or no signif icant history 08/22/2015 Last Documented On 3 11:01AM ; [facility] Family History Includes: Family History addressed during this encounter No Family History Recorded Review of Systems Includes: Review of Systems from this encounter Systemic: Feeling fine and no weight loss from baseline weight. Otolaryngeal: No otolaryngeal symptoms no difficulty swallowing or chewing food. Cardiovascular: No chest pain or discomfort with exercise. Pulmonary: No dyspnea with exercise or activity. Gastrointestinal: Constant hunger. Endocrine: No Carbohydrate counting: or meal planning. Musculoskeletal: No nonspecific pain, swelling, and stiffness. Psychological: Psychological symptoms food cravings depression low self esteem related to body image. Mental Status Includes: Mental Status from this encounter Description Oriented to time, place, and person Functional Status Includes: Functional Status from this encounter No Functional Status Recorded Physical Exam Includes: Physical Exam from this encounter Allergies Includes: Active Allergies No Known Allergies Encounters Encounter Provider Location Date Check-In Time Check-Out Time Diagnosis CONSULT PRISCILLA CHENEY WE[facility] MANAGEMENT-INI RUDY GE-C [facility]- 08/20/20 23 10:35AM 11:54AM Obesity Insurance Includes: Active Insurance Policies Plan Name Member ID Group # Subscriber Relationship Effect sandie Dates - [id number] RK LEDEZMA Self Clinical Notes Includes: Clinical Notes from this encounter * Progress note Date Encounter Last Documented by 08/20/2023 CONSULT PRISCILLA CHENEY WE[facility] MANAGEMENT-INITIAL Last documented on 08/20/2023; 2:48 PM, MESHA ASCENCIO; [facility] Active Problems & Conditions - F43.22 - Adjustment Disorder with Anxiety - M25.569 - Arthralgia Knee / Patella / Tibia / Fibula - F31.9 - Bipolar Disorder Nos - M54.2 - Cervicalgia - J41.0 - Chronic Bronchitis - Simple - G44.89 - Chronic Daily Headache - I10 - Essential Hypertension Benign - Hyperlipidemia - F11.90 - Opioid Use - Uncomplicated - F51.01 - Primary Insomnia - M54.31 - Sciatica Right Sided - G47.26 - Sleep Disorder Circadian Rhythm, Shift Work Type - Z72.0 - Tobacco Use Chief Complaint The Chief Complaint is: Obesity. History of Present Illness RK LEDEZMA is a 48 year old female. Source of patient information was patient - Dietary weight loss required duration 3-6 months - Allergy list reviewed - Problem list reviewed - Medication reconciliation performed - Medication reconciliation performed - Medication list reviewed Here today for medical nutritional counseling and lifestyle management for obesity with co-morbidity. PMHx, medication list and pertinent lab work reviewed. Initial: Weight 177 Height 62 BMI 32.4 Neck 14 Chest/Bra Band 39 Waist 39 Hip 42 What do you feel your weight maybe holding you back from doing? a lot of stuff- self esteem, chronic inflammation and pain-mood and sleep How much weight would you like to lose to help you reach your goals? 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 Y 20+ YEARS Major Life Events that caused weight gain ? NO How long have you been trying to lose weight? YO-YO FOR MANY YEARS CURRENT WEIGHT-LOSS MANAGEMENT EFFORTS Physical activity _Y__tried in the past __N_currently doing it Healthy eating _Y__tried in the past __N_currently doing it Over the counter products _Y__tried in the past _N__currently doing it Prescription medication __Y_tried in the past __N_currently doing it ___Y__interested in it Commercial weight loss programs _N__tried in the past ___currently doing it Bariatric Surgery _N__tried in the past _N__currently doing it ___N__interested in it CURRENT EATING AND ACTIVITY ROUTINES Eat 3 meals per day__Y_ Eat more than 3 meals a day_N__ Frequent snacker__N_ Emotional eater_N__ Healthy eater__N_ Binge eater_Y__ Constant dieter_N__ Limiting portion sizes__Y_ Cooks meals at home___Y__ What 80% of meals are eaten in the home/or prepared in the home Uses meal replacement shakes/bars__N_ Avoids sugar_N__ Track activity and calories_Y__ Reads food labels_N__ Approximately how often do you spend time doing physical activity such as going for a walk, yard work, house work or workout? ALL DAY LONG-ACTIVE JOB Time spent on this patient for E/M including assessment, education and plan of care, reviewing pertinent labs, medical history and other medical records and documentation total 35 minutes. Current Medication - Atorvastatin Calcium 20 MG Oral Tablet TAKE 1 TABLET BY MOUTH EVERY DAY, 30 days, 11 refills - hydrOXYzine HCl 25 MG Oral Tablet [facility] at [facility], 0 days, 0 refills - Metoprolol Succinate ER 50 MG Oral Tablet Extended Release 24 Hour TAKE 1 TABLET BY MOUTH EVERY DAY, 30 days, 11 refills - Omeprazole 20 MG Oral Capsule Delayed Release TAKE 1 CAPSULE BY MOUTH EVERY DAY, 30 days, 5 refills - Xanax 0.25 MG Oral Tablet One tablet twice a day Bianca [facility] at [facility], 0 days, 0 refills - Zolpidem Tartrate 10 MG Oral Tablet TAKE 1 TABLET BY MOUTH EVERYDAY AT BEDTIME DNF 07/27, 30 days, 0 refills Past Medical/Surgical History Reported: No recent change in medical history and LMP: 2001. Medical: No medical history or no significant history. Medications: Not taking medication to lose weight. Social History Social history unchanged. Personal: No interpersonal problems, no family problems, and no work-related circumstances. No job change, no recent financial changes, and no recent legal problems. Current diet: Inappropriate diet and eating habits, food and nutrition-related knowledge deficit, and excessive carbohydrate intake. Caffeine use: No caffeine use. Tobacco use: Current smoker, smoker, and smoking status: Current everyday smoker 1/2 ppd. Alcohol: Alcohol --seldom. Not using alcohol. Drug Use: Drug use --THC 2x/wks. Habits: Good exercise habits. Marital: Currently . Functional: No physical disability Works at [employer] in . Allergies - No Known Allergies Review Of Systems Systemic: Feeling fine and no weight loss from baseline weight. Otolaryngeal: No otolaryngeal symptoms no difficulty swallowing or chewing food. Cardiovascular: No chest pain or discomfort with exercise. Pulmonary: No dyspnea with exercise or activity. Gastrointestinal: Constant hunger. Endocrine: No Carbohydrate counting: or meal planning. Musculoskeletal: No nonspecific pain, swelling, and stiffness. Psychological: Psychological symptoms food cravings depression low self esteem related to body image. Physical Findings - Vitals taken 08/20/2023 11:01 am BP-Sitting 132/64 mmHg Pulse Rate-Sitting 69 bpm Respiration Rate 20 per min Temp-Oral 98.1 F Height 62 in Weight 177 lbs Body Mass Index 32.4 kg/m2 Body Surface Area 1.8 m2 Oxygen Saturation 96 % Standard Measurements: - Patient was overweight. - Patient was observed to be obese. - No body mass index 30+ - obesity. General Appearance: - Well-appearing. - Awake. - Alert. Lungs: - Respiration rhythm and depth was normal. - Normal breath sounds/voice sounds. Cardiovascular: Heart Rate And Rhythm: - Normal. Murmurs: - No murmurs were heard. Edema: - Not present. Neurological: - Oriented to time, place, and person. Psychiatric: - Mood was calm. - Mood was pleasant. Mood: - Euthymic. Skin: - General appearance was normal. Growth And Development: - Can read and do math at grade level minimum 5. Assessment - [E66.01 - Morbid (severe) obesity due to excess calories] Obesity Therapy - Urged Exercise and Diet 5 days weekly for 30 minutes each day for a total of 150 minutes per week. - Medical nutrition therapy initial assessment and intervention, each 15 minutes, subsequent treatment for change in diagnosis individual, [id number], each 15 minutes, weight management program reduction regimen actions to lose weight carbohydrate counting, exercising, and restricting food intake. - Controlled carbohydrate diet and macronutritionally focused protion control, food diary, and recommended changes in carbohydrate intake. - Encouragement to exercise. - Intervention and counseling on cessation of tobacco use. - Follow-up visit in one month. - Clinical summary provided to patient. - Plan of care reviewed and agreed to by the patient. - Carbohydrate counting: Low Carbohydrate Macronutrient Controlled meal plan 3 meals daily with 2 snacks. Counseling/Education - Education and instructions - Discussed Healthy Eating - Discussed Exercise - Lose weight - Patient education about dietary compliance - Patient education about meal planning - Education about modifying recipes - Education about changing eating habits - Dietary strategies when eating out - Education about reading food labels - Patient education about a special diet Low Carbohydrate Macronutrient Controlled meal plan 3 meals daily with 2 snacks - Patient education about low carbohydrate diet with portion control and macronutrition - Educational literature on diet given - Education, guidance, and counseling about dietary management - Clinical summary provided to patient Plan 1538 Calories Per Day Carbohydrate 154 g 40.1% Protein 115 g 29.9% Fat 51 g 30.0% [facility] Follow a low carbohydrate meal plan that is macronutrient focused with portion control as discussed. Macros Calculated today and handout provided. You will need to count your macros and keep track of your food. Behavioral counseling with Weight Management Strategies provided today. Exercise Prescribed as follows 30 minutes of exercise 5 days weekly consecutively for a total of 150 minutes of exercise. I recommend the use of a tracking adelso like StackMob, Fotoshkola, FoodDNAnexuste or Lose It to track food and activity and water intake. Water intake should be 64 ounces daily. I recommend you journal to track feelings about food, stress, activity. Follow up in the office in 1 month progress-and reinforcement. This meal plan is one that limits not restricts; carbohydrates, calories, sugar and fats primarily found in sugary foods, junk food, pasta, and bread. And encourages eating protein-rich whole foods, healthy fats and vegetables. Basics Eat: Meat, fish, eggs, healthy grains in minimal portions, vegetables growing above ground and natural fats (like butter). Limit or omit: Sugar and starchy foods (like bread, pasta, rice, beans and potatoes). Eat when you're hungry and stop when you're satisfied. It can be that simple. Tips/Guidance for Planning Meals and Snacks: Meat: Any type: Beef, pork, ramos, game, poultry, etc. Feel free to eat the fat in the meat as well as the skin on the chicken. Fish and seafood: All kinds: Fatty fish such as salmon, mackerel, sardines or espinal are great, and might even have health benefits due to high amounts of omega-3 fatty acids. Avoid breading. Eggs: All kinds: Boiled, fried, scrambled, omelets, etc. Natural fats and high-fat sauces: Using butter and cream for cooking can make your low-carb foods taste better. Coconut oil or olive oil are also good options. Vegetables that grow above ground: Cauliflower, broccoli, cabbage, [place] sprouts, kale, collards, bok [place], spinach, asparagus, zucchini, eggplant, olives, mushrooms, cucumber, avocado (technically a fruit but usually included with vegetables), onions, peppers, tomatoes, lettuce, other kinds of leafy greens, etc. These are lowest in net carbs and can be enjoyed at all levels of carb restriction. Dairy products: Feel free to choose full-fat options like real butter, cream (40% fat), sour cream, [place] yogurt and high-fat cheeses, which can help you enjoy delicious food while losing weight. Be careful with all milk, as it contains a lot of milk sugar. Nuts: Great for a treat (in moderation) instead of popcorn, candy or chips. Berries: Okay in moderation, if you do not need to be super strict with carbs. Practice Management Use of tobacco assessment performed and patient screened for future fall risk Review of medications documented; Screening for safety concerns; Counseling about safety issues. Health Reminders - Assess Blood Pressure satisfied 08/20/2023. - Assess BMI satisfied 08/20/2023. - Assess Tobacco Use satisfied 08/20/2023. - Follow Up Plan BMI Management satisfied 08/20/2023. - Smoking & Tobacco Cessation Intervention and Counseling satisfied 08/20/2023.
--- OUTSIDE RECORDS SUMMARY | 2025-01-02 12:19 | XMS_ITS | Clinical Summary ---
Author Organization [facility] Address [address] [place] [address] Phone Care Team Providers Care Configuration Management Consultant Name Role Phone Awilda Grissom MD Primary Care Provider Unav ailable Allergies No known active allergies Medications Eszopiclone (LUNESTA PO) Take 1 Tab by mouth nightly as needed. Active ondansetron (ZOFRAN) 4 MG Tablet Take 1 Tab by mouth every 8 hours as needed for Nausea. 15 Tab 09/10/2017 Active dicyclomine (BENTYL) 20 MG Tablet Take 1 Tab by mouth every 6 hours. 30 Tab 09/10/2017 Active ALPRAZolam (XANAX) 0.5 MG Tablet Take 0.5 mg by mouth 2 times daily as needed. Active HYDROcodone-shakira taminophen (NORCO) 5-325 MG Tablet Take 1 Tab by mouth every 4 hours as needed. Active traMADol (ULTRAM) 50 MG Tablet Take 1-2 Tabs by mouth every 6 hours as needed for Moderate or more severe pain. 20 Tab 05/04/2018 Active polyethylene glycol (GLYCOLAX, MIRALAX) Pack Take 1 Packet by mouth daily. Dissolve in 4-8 oz of liquid. 30 Packet 11/18/2018 Active Active Problems No known active problems Social History Tobacco Use Types Packs/Day Years Used Date Smoking Tobacco: Every Day Cigarettes Smokeless Tobacco: Never Alcohol Use Standard Drinks/Week Comments Yes 0 (1 standard drink = 0.6 oz pur e alcohol) VERY RARELY Comments No Sex and Gender Information Value Date Recorded Sex Assigned at Not on file Legal Sex Female 11:02 PM CDT Gender Identity Not on file Sexual Orientation Not on file Last Filed Vital Signs Vital Sign Reading Time Taken Comments Blood Pressure 158/77 11/18/2018 6:30 PM CUSTOMER SUPPORT EXECUTIVE Pulse 74 11/18/2018 6:42 PM [employer]OMER [employer] EXEC[employer]IVE Temperature 36.8 C (98.3 F) 11/18/2018 3:14 PM CUSTOMER SUPPORT EXEC[employer]IVE Respiratory Rate 26 11/18/2018 6:42 PM CUSTOMER SUPPORT EXEC[employer]IVE Oxygen Saturation 96% 11/18/2018 6:42 PM CUSTOMER SUPPORT EXECUTIVE Inhaled Oxygen Concentration - - Weight 68 kg (150 lb) 11/18/2018 3:14 PM CUSTOMER SUPPORT EXECUTIVE Height 157.5 cm (5' 2 ) 11/18/2018 3:14 PM CUSTOMER SUPPORT EXECUTIVE Body Mass Index 27.44 11/18/2018 3:14 PM CUSTOMER SUPPORT EXECUTIVE Plan of Treatment Health Maintenance Due Date Last Done Comments Hepatitis C Virus (HCV) Screening 1977 TdaP Immunization 1977 Hepatitis B Immunization (1 of 3 - 19+ 3-dose series) 1996 Discussion re Starting/Frequ ency of Mammograms 2017 Colonoscopy 2022 Colorectal Cancer Screening 2022 Influenza Immunization (#1) 2024 SARS-COV-2 Immunization ( season) 2024 Respiratory Syncytial Virus (RSV) Immunization (Adult) (1 - 1-dose 75+ series) 2052 Meningococcal Immunization (ACWY) Aged Out No longer eligible based on patient's age to complete this topic Pneumococcal Immunization Combined Aged Out No longer eligible based on patient's age to complete this topic Rotavirus Immunization Aged Out No lo nger eligible based on patient's age to complete this topic Insurance [employer] NAP on file Care Teams Configuration Management Consultant Relationship Specialty Start Date End Date Awilda Grissom MD PCP - General Family Medicine 11/14/17
--- OUTSIDE RECORDS SUMMARY | 2025-01-02 12:19 | XMS_ITS | Encounter Summary ---
Author Organization [facility] Address [address] [place] [address] Care Team Providers Care Banquet Attendant Name Role Phone Unavailable Primary Care Provider Unavailabl e Encounter Details Date Type Department Care Team (Late st Contact Info) Description 09/08/2020 Lab Requisition [facility] [address] [place] [id number] Liliana Kline MD [address] [facility] [address] [place] [address] Social History Tobacco Use Types Packs/Day Years Used Date Smoking Tobacco: Never Assessed Sex and Gender Information Value Date Recorded Sex Assigned at Not on file Gender Identity Not on file Sexual Orientation Not on file documented as of this encounter Plan of Treatment Not on file documented as of this encounter Procedures Procedure Name Priority Date/Time Associated Diagnosis Comments DERMATOPATHOLOGY Routine 09/08/2020 12:0 0 AM [facility] documented in this encounter Results * DERMATOPATHOLOGY (09/08/2020 12:00 AM PANEL [facility]) Case Report Dermatopathology Report Case: [id number] Authorizing Provider: Liliana Kline MD Collected: 09/08/2020 12:00 AM Ordering Location: [facility] Received: 09/08/2020 11:12 AM Pathologist: Balaji Gallegos MD Specimen: Skin, left eyelid margin 0 5:13 PM [facility] Final Diagnosis Specimen A. SKIN, left eyelid margin: SEBORRHEIC KERATOSIS, IRRITATED (L82.0) 0 5:13 PM [facility] Clinical History Crusted pink papule ISK R/O SCC. 0 5:13 PM [facility] Gross Description Specimen A: Received is one formalin filled container labeled with the patient's name and designated left eyelid margin. The specimen consists of a shave measuring [id number]. Jar 0. 0 5:13 PM [facility] DERMATOPATHOLOGY LABORATORY Microscopic Description Specimen A. SKIN, left eyelid margin: There is acanthosis consisting of fairly uniform squamous cells with eosinophilic cytoplasm and squamous eddies. 0 5:13 PM [facility] DERMATOPATHOLOGY LABORATORY Disclaimer An external and internal positive and negative controls are appropriate for the histochemical, immunohistochemical and immunofluorescence stain(s) in this case (if any), except where stated explicitly. The performance characteristics of the stain(s) cited in this report were developed and its performance characteristic determined by the Dermatopathology Laboratory at [facility], directed by Dr. Bolivar Gallegos. These tests need not be, and therefore are not, approved by the [place] Food and Drug Administration. The tests are used for clinical purposes. Billing Codes Specimen Charges Stain Charges 68448 1 0 5:13 PM [facility] DERMATOPATHOLOGY LABORATORY Embedded Images 0 5:13 PM [facility] DERMATOPATHOLOGY LABORATORY Pathology/Cytolog y TISSUE SPECIMEN FROM SKIN / Unknown 09/08/2020 09/08/2020 11:12 AM PANEL [facility] Liliana Kline MD LAB - PATHOLOGY/CYTO LOGY ORDERABLES DERMATOPATHOLOGY LABORATORY [facility] - Department of Dermatology [address], [address] [phone] documented in this encounter Visit Diagnoses Not on filedocumented in this encounter
--- OUTSIDE RECORDS SUMMARY | 2025-01-02 12:19 | XMS_ITS | Patient Health Record ---
Author Organization [facility] Address [address] [place] [address] Care Team Providers Care Delivery Nurse Name Role Phone Bianca Angel Primary Care Provider [phone] Chiqui Lin Unavailable [phone] Allergies No Known Allergies Results Component Value Reference Range Notes TSH* Reviewed date:07/21/2024 09:24:57 AM Interpretation:Normal Performing Lab:[facility], [address] [facility] [place], Phone - [phone], Director - Winifred Notes/Report: TSH 1.790 0.450-4.500 uIU/mL CBC With Differential/Platel et* Reviewed date:07/21/2024 09:25:24 AM Interpretation:Abnormal Performing Lab:[facility], [address] [facility] [place], Phone - [phone], Director - Winifred Notes/Report: WBC 8.7 3.4-10.8 x10E3/uL RBC 4.27 3.77-5.28 x10E6/uL Hemoglobin 14.4 11.1-15.9 g/dL Hematocrit 44.2 34.0-46.6 % MCV 104 79-97 fL MCH 33.7 26.6-33.0 pg MCHC 32.6 31.5-35.7 g/dL RDW 12.8 11.7-15.4 % Platelets 313 150-450 x10E3/uL Neutrophils 70 Not Estab. % Lymphs 24 Not Estab. % Monocytes 5 Not Estab. % Eos 1 Not Estab. % Basos 0 Not Estab. % Neutrophils (Absolute) 6.0 1.4-7.0 x10E3/uL Lymphs (Absolute) 2.1 0.7-3.1 x10E3/uL Monocytes(Absolute) 0.5 0.1-0.9 x10E3/uL Eos (Absolute) 0.1 0.0-0.4 x10E3/uL Baso (Absolute) 0.0 0.0-0.2 x10E3/uL Immature Granulocytes 0 Not Estab. % Immature Grans (Abs) 0.0 0.0-0.1 x10E3/uL CMP 14 Comprehensive Metabol ic Panel* Reviewed date:07/21/2024 09:25:09 AM Interpretation:Abnormal Performing Lab:[facility], [address] [facility] [place], Phone - [phone], Director - Jayy Notes/Report: Glucose 109 70-99 mg/dL BUN 7 6-24 mg/dL Creatinine 0.85 0.57-1.00 mg/dL eGFR 85 >59 mL/min/1.73 BUN/Creatinine Ratio 8 9-23 Sodium 141 134-144 mmol/L Potassium 4.1 3.5-5.2 mmol/L Chloride 102 96-106 mmol/L Carbon Dioxide, Total 21 20-29 mmol/L Calcium 9.8 8.7-10.2 mg/dL Protein, Total 6.8 6.0-8.5 g/dL Albumin 4.7 3.9-4.9 g/dL Globulin, Total 2.1 1.5-4.5 g/dL Bilirubin, Total 0.3 0.0-1.2 mg/dL Alkaline Phosphatase 111 44-121 IU/L AST (SGOT) 20 0-40 IU/L ALT (SGPT) 24 0-32 IU/L Reason For Referral No Information Medications Medication SIG (Take, Route, Frequency, Duration) Notes Start Date End Date Status ALPRAZolam 0.25 MG 1 tablet Orally Two to Three times daily for 11 days As needed 12/31/2024 Active Armodafinil 200 MG 1.5 tablet Orally On ce a day for 11 days 12/31/2024 Active cloNIDine HCl 0.1 MG TAKE 1 TABLET BY [facility] EVERY DAY for 5 days Not-Taking ALPRAZolam 0.25 MG 1 tablet Orally Twic a day for 18 days 07/09/2024 Active Armodafinil 200 MG 1.5 tablet Orally On ce a day for 18 days 07/09/2024 Active Metoprolol Succinate ER 50 MG 1 tablet Orally Once a day for 30 day(s) Active rOPINIRole HCl 0.5 MG 1 tablet 1 hour be fore bedtime Orally Once a day for 11 days Active Social History Tobacco Use: Social History Observation Description Date Details (start date - stop date) Current Smoker NA - NA Sex Assigned At : Social History Observation Description Sex Assigned At Female Dont use, Tobacco Use/Smoking Question Answer Notes Are you a current every day smoker Additional Findings: Tobacco User Moderate cigar ette smoker (10-19 cigs/day) Problems Problem Type SNOMED Code ICD Code Onset Dates Problem Status W/U Status Risk Notes Problem Tobacco user (902599147) Nicotine dependence, unspecified, uncomplicated (F17.200) Active confirmed Problem Generalized anxiety disorder (92939300) Generalized anxiety disorder (F41.1) Active confirmed Problem Bipolar 1 disorder (223997463) Bipolar 1 disorder (F31.9) Active confirmed Problem Restless legs syndrome (51509895) Restless leg syndrome (G25.81) Active confirmed Vital Signs Heart Rate 53 /min 07/27/2024 Respiratory Rate 16 /min 07/27/2024 Oximetry 98 % 07/27/2024 Blood pressure diastolic 78 mm Hg 07/27/2024 Height 62 in 07/27/2024 Blood pressure systolic 130 mm Hg 07/27/2024 Weight 183.6 lbs 07/27/2024 BMI 33.58 kg/m2 07/27/2024 Encounters Encounter Location Date Provider Diagnosis [address] [place] [address] 07/17/2024 Bianca Angel Bipolar 1 disorder F31.9 ; Generalized anxiety disorder F41.1 and Medication monitoring encounter Z51.[address] [facility] [place] [address] 02/12/2024 Bianca Angel Nicotine dependence, unspecified, uncomplicated F17.200 ; Generalized anxiety disorder F41.1 and Bipolar 1 disorder F31.[address] [facility] [place] [address] 07/27/2024 Bianca Angel Nicotine dependence, unspecified, uncomplicated F17.200 ; Generalized anxiety disorder F41.1 and Bipolar 1 disorder F31.[address] [place] [address] 09/16/2024 Bianca Angel Nicotine dependence, unspecified, uncomplicated F17.200 ; Generalized anxiety disorder F41.1 ; Bipolar 1 disorder F31.9 and Restless leg syndrome G25.[address] [place] [address] 10/15/2024 Bianca Angel Nicotine dependence, unspecified, uncomplicated F17.200 ; Generalized anxiety disorder F41.1 ; Bipolar 1 disorder F31.9 and Restless leg syndrome G25.[address] [place] [address] 07/09/2024 Bianca Angel Bipolar 1 disorder F31.9 ; Generalized anxiety disorder F41.1 and Medication monitoring encounter Z51.[address] [place] [address] 07/09/2024 Bianca Angel Bipolar 1 disorder F31.9 and Generalized anxiety disorder F41.[address] [place] [address] 08/20/2024 Bianca Angel [address] [place] [address] 09/14/2024 Bianca Angel Bipolar 1 disorder F31.9 and Generalized anxiety disorder F41.[address] [place] [address] 03/11/2024 Bianca Angel [address] [place] [address] 08/20/2024 Bianca Angel [address] [place] [address] 12/31/2024 Bianca Angel [address] [place] [address] 12/31/2024 Bianca Angel [address] [place] [address] 12/31/2024 Bianca Angel [facility] [address] [place] [address] 12/31/2024 Bianca Angel Bipolar 1 disorder F31.9 ; Generalized anxiety disorder F41.1 and Restless leg syndrome G25.81 Assessments Encounter Date Diagnosis (ICD Code) Assessment Notes Treatment Notes Treatment Clinical Notes Section Notes 02/12/2024 Nicotine dependence, unspecified, uncomplicated (ICD-10 - F17.200) 07/09/2024 Bipolar 1 disorder (ICD-10 - F31.9) 07/09/2024 Bipolar 1 disorder (ICD-10 - F31.9) 07/17/2024 Bipolar 1 disorder (ICD-10 - F31.9) 07/27/2024 Nicotine dependence, unspecified, uncomplicated (ICD-10 - F17.200) 09/14/2024 Bipolar 1 disorder (ICD-10 - F31.9) 09/16/2024 Nicotine dependence, unspecified, uncomplicated (ICD-10 - F17.200) 10/15/2024 Nicotine dependence, unspecified, uncomplicated (ICD-10 - F17.200) 12/31/2024 Bipolar 1 disorder (ICD-10 - F31.9) 07/09/2024 Generalized anxiety disorder (ICD-10 - F41.1) 09/14/2024 Generalized anxiety disorder (ICD-10 - F41.1) 10/15/2024 Generalized anxiety disorder (ICD-10 - F41.1) PDMP checked with pharmacy- no concerns at this time. Discussed controlled subs. Discussed with client that benzodiazepines are not recommended for long-term use due to potent and dangerous side effects that include increased drowsiness, memory impairment, increased irritability, mood changes, and worsening of PTSD symptoms. Benzodiazepines increase respiratory depression which can aggravate conditions such as sleep apnea and COPD leading to possible . They should also never be combined with alcohol, pain medications (especially opioids), or street drugs because this can lead to overdose and possible . If you are under the influence of benzodiazepines while operating a motor vehicle and are involved in a car accident you can be charged with driving while intoxicated. Benzodiazepine use increases unsteady gait thereby increasing the risk of falls, broken bones, and concussions. Benzodiazepine use is intended for short-term use, up to 3 weeks at most. Long-term use of benzos can lead to dependence, rebound anxiety/agitation, and withdrawal symptoms that include sleep disturbance, irritability, increased tension and anxiety, panic attacks, hand tremor, sweating, difficulty in concentration, dry retching, and nausea, some weight loss, palpitations, headache, muscular pain and stiffness, and a host of perceptual changes. 12/31/2024 Generalized anxiety disorder (ICD-10 - F41.1) 09/16/2024 Generalized anxiety disorder (ICD-10 - F41.1) PDMP checked with pharmacy- no concerns at this time. Discussed controlled subs. Discussed with client that benzodiazepines are not recommended for long-term use due to potent and dangerous side effects that include increased drowsiness, memory impairment, increased irritability, mood changes, and worsening of PTSD symptoms. Benzodiazepines increase respiratory depression which can aggravate conditions such as sleep apnea and COPD leading to possible . They should also never be combined with alcohol, pain medications (especially opioids), or street drugs because this can lead to overdose and possible . If you are under the influence of benzodiazepines while operating a motor vehicle and are involved in a car accident you can be charged with driving while intoxicated. Benzodiazepine use increases unsteady gait thereby increasing the risk of falls, broken bones, and concussions. Benzodiazepine use is intended for short-term use, up to 3 weeks at most. Long-term use of benzos can lead to dependence, rebound anxiety/agitation, and withdrawal symptoms that include sleep disturbance, irritability, increased tension and anxiety, panic attacks, hand tremor, sweating, difficulty in concentration, dry retching, and nausea, some weight loss, palpitations, headache, muscular pain and stiffness, and a host of perceptual changes. 07/27/2024 Generalized anxiety disorder (ICD-10 - F41.1) PDMP checked with pharmacy- no concerns at this time. Discussed controlled subs. Discussed changing hydroxyzine forms. Discussed with client that benzodiazepines are not recommended for long-term use due to potent and dangerous side effects that include increased drowsiness, memory impairment, increased irritability, mood changes, and worsening of PTSD symptoms. Benzodiazepines increase respiratory depression which can aggravate conditions such as sleep apnea and COPD leading to possible . They should also never be combined with alcohol, pain medications (especially opioids), or street drugs because this can lead to overdose and possible . If you are under the influence of benzodiazepines while operating a motor vehicle and are involved in a car accident you can be charged with driving while intoxicated. Benzodiazepine use increases unsteady gait thereby increasing the risk of falls, broken bones, and concussions. Benzodiazepine use is intended for short-term use, up to 3 weeks at most. Long-term use of benzos can lead to dependence, rebound anxiety/agitation, and withdrawal symptoms that include sleep disturbance, irritability, increased tension and anxiety, panic attacks, hand tremor, sweating, difficulty in concentration, dry retching, and nausea, some weight loss, palpitations, headache, muscular pain and stiffness, and a host of perceptual changes. 07/17/2024 Generalized anxiety disorder (ICD-10 - F41.1) 02/12/2024 Generalized anxiety disorder (ICD-10 - F41.1) PDMP checked with pharmacy- no concerns at this time. Discussed with client that benzodiazepines are not recommended for long-term use due to potent and dangerous side effects that include increased drowsiness, memory impairment, increased irritability, mood changes, and worsening of PTSD symptoms. Benzodiazepines increase respiratory depression which can aggravate conditions such as sleep apnea and COPD leading to possible . They should also never be combined with alcohol, pain medications (especially opioids), or street drugs because this can lead to overdose and possible . If you are under the influence of benzodiazepines while operating a motor vehicle and are involved in a car accident you can be charged with driving while intoxicated. Benzodiazepine use increases unsteady gait thereby increasing the risk of falls, broken bones, and concussions. Benzodiazepine use is intended for short-term use, up to 3 weeks at most. Long-term use of benzos can lead to dependence, rebound anxiety/agitation, and withdrawal symptoms that include sleep disturbance, irritability, increased tension and anxiety, panic attacks, hand tremor, sweating, difficulty in concentration, dry retching, and nausea, some weight loss, palpitations, headache, muscular pain and stiffness, and a host of perceptual changes. 07/09/2024 Generalized anxiety disorder (ICD-10 - F41.1) C[facility]Rx Response got Denied on 2024-07-09 11:20:22 for 'hydrOXYzine HCl 25 MG Tablet'Pharmacy Notes: Prescription not found. Contact Pharmacy by other means 02/12/2024 Bipolar 1 disorder (ICD-10 - F31.9) [place] agreement to continue regimen at this time. 07/09/2024 Medication monitoring encounter (ICD-10 - Z51.81) 07/27/2024 Bipolar 1 disorder (ICD-10 - F31.9) [place] agreement to continue regimen at this time. 07/17/2024 Medication monitoring encounter (ICD-10 - Z51.81) 09/16/2024 Bipolar 1 disorder (ICD-10 - F31.9) [place] agreement to continue regimen at this time. 09/16/2024 Restless leg syndrome (ICD-10 - G25.81) Currently on metoprolol, propranolol not recommended as in same class, tried clonidine with no improvement, sedating agents without improvement, gabapentin caused fogginess. Starting Requip. 10/15/2024 Bipolar 1 disorder (ICD-10 - F31.9) [place] agreement to continue regimen at this time. 12/31/2024 Restless leg syndrome (ICD-10 - G25.81) 10/15/2024 Restless leg syndrome (ICD-10 - G25.81) Currently on metoprolol, propranolol not recommended as in same class, tried clonidine with no improvement, sedating agents without improvement, gabapentin caused fogginess. Starting Requip. 02/12/2024 Other Reasons, potential benefits, potential risks, interactions and side effects of all medications were discussed. The Patient/Guardian asked appropriate questions, appeared to understand the answers, and decided to accept the treatment and continue being followed. Alternatives and expected course without treatment were reviewed. The Patient/Guardian is aware of the need to contact the office or return for an earlier appointment if any problems or concerns arise. May also contact the 24-hour crisis hotline ([facility]), refer to the closest emergency room or call 911 if new symptoms arise of existing symptoms worsen. The Patient/Guardian is aware that this would apply to symptoms like: suicidal ideation, homicidal ideation, high risk behaviors, manic symptoms, psychotic symptoms, physical symptoms, or any other symptoms that may be dangerous to self or others. Greater than 50% of time spent on coordination and counseling where psychopharmacology as well as psychotherapeutic interventions were discussed along with review of treatments in the past. Education provided concerning need for adequate hydration. Patient/Guardian verbalized understanding of education, treatment plan and follow up. This session was completed telephonically with client/parental/guard ervin consent: Unable to determine movement status, assess appearance, affect, AIMS, or vital signs. 07/27/2024 Other Reasons, potential benefits, potential risks, interactions and side effects of all medications were discussed. The Patient/Guardian asked appropriate questions, appeared to understand the answers, and decided to accept the treatment and continue being followed. Alternatives and expected course without treatment were reviewed. The Patient/Guardian is aware of the need to contact the office or return for an earlier appointment if any problems or concerns arise. May also contact the 24-hour crisis hotline ([facility]), refer to the closest emergency room or call 911 if new symptoms arise of existing symptoms worsen. The Patient/Guardian is aware that this would apply to symptoms like: suicidal ideation, homicidal ideation, high risk behaviors, manic symptoms, psychotic symptoms, physical symptoms, or any other symptoms that may be dangerous to self or others. Greater than 50% of time spent on coordination and counseling where psychopharmacology as well as psychotherapeutic interventions were discussed along with review of treatments in the past. Education provided concerning need for adequate hydration. Patient/Guardian verbalized understanding of education, treatment plan and follow up. 09/16/2024 Other Reasons, potential benefits, potential risks, interactions and side effects of all medications were discussed. The Patient/Guardian asked appropriate questions, appeared to understand the answers, and decided to accept the treatment and continue being followed. Alternatives and expected course without treatment were reviewed. The Patient/Guardian is aware of the need to contact the office or return for an earlier appointment if any problems or concerns arise. May also contact the 24-hour crisis hotline ([facility]), refer to the closest emergency room or call 911 if new symptoms arise of existing symptoms worsen. The Patient/Guardian is aware that this would apply to symptoms like: suicidal ideation, homicidal ideation, high risk behaviors, manic symptoms, psychotic symptoms, physical symptoms, or any other symptoms that may be dangerous to self or others. Greater than 50% of time spent on coordination and counseling where psychopharmacology as well as psychotherapeutic interventions were discussed along with review of treatments in the past. Education provided concerning need for adequate hydration. Patient/Guardian verbalized understanding of education, treatment plan and follow up. This session was completed telephonically with client/parental/guard ervin consent: Unable to determine movement status, assess appearance, affect, AIMS, or vital signs. 10/15/2024 Other Reasons, potential benefits, potential risks, interactions and side effects of all medications were discussed. The Patient/Guardian asked appropriate questions, appeared to understand the answers, and decided to accept the treatment and continue being followed. Alternatives and expected course without treatment were reviewed. The Patient/Guardian is aware of the need to contact the office or return for an earlier appointment if any problems or concerns arise. May also contact the 24-hour crisis hotline ([facility]), refer to the closest emergency room or call 911 if new symptoms arise of existing symptoms worsen. The Patient/Guardian is aware that this would apply to symptoms like: suicidal ideation, homicidal ideation, high risk behaviors, manic symptoms, psychotic symptoms, physical symptoms, or any other symptoms that may be dangerous to self or others. Greater than 50% of time spent on coordination and counseling where psychopharmacology as well as psychotherapeutic interventions were discussed along with review of treatments in the past. Education provided concerning need for adequate hydration. Patient/Guardian verbalized understanding of education, treatment plan and follow up. This session was completed telephonically with client/parental/guard ervin consent: Unable to determine movement status, assess appearance, affect, AIMS, or vital signs. 07/09/2024 Other CancelRx Respon se got Denied on 2024-07-09 11:20:22 for 'cloNIDine HCl 0.1 MG Tablet'Pharmacy Notes: Prescription not found. Contact Pharmacy by other means Plan Of Treatment Next Appt Details Provider Name:Bianca william, 01/11/2025 03:00:00 PM, [address] [facility] [address], [place], [address], Insurance Providers Payer Name Payer Address Payer Phone Subscriber Number Group Number Insured Name Patient Relationship to Insured Coverage Start Date Coverage End Date [employer] [address] [place] [phone] [id number] Null, Caroline Self - patient is the insured 6 Medical (General) History Surgical History Surgery Date(Month/Year) TOTAL HYSTERECTOMY Hospitalization History Reason Date(Month/Year)
--- OUTSIDE RECORDS SUMMARY | 2025-01-02 12:19 | XMS_ITS | Referral Summary ---
Author Organization [facility] Address [address] [place] [address] Care Team Providers Care Stencil Maker Name Role Phone Unavailable Primary Care Provider Unavailabl e Source Comments [facility],non-owned Affiliates and Associated Physician Practices is amultiple site organization consisting of ambulatory clinics and hospital sitesin [place], [place], [place] and [place]. This disclosure is being madepursuant to the Care Everywhere program and may not contain all information available regarding this patient. Last updated 18.[facility] Social History Tobacco Use Types Packs/Day Years Used Date Smoking Tobacco: Never Assessed Sex and Gender Information Value Date Recorded Sex Assigned at Not on file Gender Identity Not on file Sexual Orientation Not on file Plan of Treatment Not on file
--- OUTSIDE RECORDS SUMMARY | 2025-01-02 12:19 | XMS_ITS | Clinical Summary ---
Author Organization [facility] Address [address] [place] [address] Phone Care Team Providers Care Party Host Name Role Phone JAIME SNIDER MD Primary Care Provider [phone] Reason for Visit and Chief Complaint The Chief Complaint is: Check up. No concerns at this time Problems Includes: Problems addressed during this encounter and other active Problems Current Visit Onset Date Resolved Date Provider Conditio n Status Tobacco Use 06/21/2020 02/05/2023 MARTA WHITEC R esolved Last Documented On 3 9:44AM ; [facility] Essential Hypertension Benign 09/27/2019 ANILA WHITEC Inactive Last Documented On 2 7:17PM ; [facility] Tobacco Use 05/05/2017 KIRT LARSON MD [place] Last Documented On 9 5:29PM ; [facility] Essential Hypertension Benign 05/25/2016 KIRT LARSON MD Active Last Documented On 6 11:45AM ; [facility] Tobacco Use 03/01/2016 KIRT LARSON MD Act sandie Last Documented On 7 8:54AM ; [facility] Primary Insomnia 10/24/2015 KIRT Muniz Active Last Documented On 6 10:28AM ; [facility] Past Visits Onset Date Resolved Date Provider Condition Status Esophagitis Chronic Reflux 02/14/2024 MARTA BENJAMIN-C Active Last Documented On 02/14/2024 8:55AM ; [facility] Note: Unchanged Allergic Rhinitis 02/14/2024 MARTA STOREY PA-C Active Last Documented On 02/14/2024 8:55AM ; [facility] Note: Unchanged Hyperlipidemia 03/20/2022 THANH VOGEL DARLIN SAENZ Active Last Documented On 2 5:01PM ; [facility] Bipolar Disorder Nos 07/01/2020 KIRT BLAIR MD Active Last Documented On 0 9:25AM ; [facility] Opioid Use - Uncomplicated 12/18/2019 KIRT HYMAN MD Active Last Documented On 0 3:16PM ; [facility] Cervicalgia 09/27/2019 KIRT LARSON MD Act sandie Last Documented On 9 10:46PM ; [facility] Chronic Daily Headache 11/12/2018 KIRT MCCLOUD MD Active Last Documented On 9 7:27PM ; [facility] Arthralgia Knee / Patella / Tibia / Fibula 09/01/2017 KIRT LARSON MD Active Last Documented On 7 5:29PM ; [facility] Chronic Bronchitis - Simple 05/25/2016 KIRT LARSON MD Active Last Documented On 7 8:53AM ; [facility] Sleep Disorder Circadian Rhy thm, Shift Work Type 03/01/2016 KIRT LARSON MD Active Last Documented On 6 10:28AM ; [facility] Adjustment Disorder with Anxiety 10/24/2015 RAZA LARSON MD Active Last Documented On 6 10:29AM ; [facility] Sciatica Right Sided 10/24/2015 KIRT BLAIR MD Active Last Documented On 6 10:29AM ; [facility] Plan of Treatment Will give sample of ubrelvy and send rx. Patient has tried and failed 2 triptans Sending short rx of quviviq to try. May transition to this if more helpful than ambien May return to ambien if this does not work Do not take both at same time Labs today Encouraged colonoscopy and mammogram. RTC 3 months, sooner if needed. - Last Documented On 11/14/2023 3:42PM ; [facility] Pending Tests Order Diagnosis Results Due Ordering P rovider Therapy - Physical Therapy Back Lumbago with sciatica, right side 05/29/23 MARTA STOREY PA-C Last Documented On 3 9:35AM ; [facility] Radiology @ [facility] - CT Scan Lumbar Spine CT w/o contrast Lumbago with sciatica, right side 07/27/23 MARTA STOREY PA-C Last Documented On 3 9:43AM ; [facility] Instructions to patient Intervention and counseling on cessation of tobacco use Last Documented On 4 2:37PM ; [facility] Assessments Includes: Assessments from this encounter Findings - [I10 - Essential (primary) hypertension] Benign essential hypertension - Last Documented On 11/14/2023 3:42PM ; [facility] - [F51.01 - Primary insomnia] Primary insomnia - Last Documented On 11/14/2023 3:42PM ; [facility] Instructions Includes: Instructions from this encounter Instructions to patient Intervention and counseling on cessation of tobacco use Last Documented On 4 2:37PM ; [facility] Medical Equipment - Implanted Devices Includes: Current Devices No Medical Equipment Recorded Medications Includes: Medications discussed during this encounter and other current Medications Discontinued / Stopped on this date on 03/11/2018 Rizatriptan Benzoate 10 MG Oral Tablet Pr ovider: Diagnosis: Last Documented On 11/15/2023 11:22AM By Lizette MYERS ; [facility] New / Renewed during this visit MARTA STOREY PA-C on 11/14/2023 Ubrelvy 100 MG Oral Tablet Provider: MARTA Soto 30 day supply: 4 tablet, 0 refills Diagnosis: TAKE ONE TABLET AT MIGRAINE ONSET. MAY REPEAT IN 2 HOURS IF NEEDED. DO NOT EXCEED MORE THAN 2 DOSES IN 24 HOUR PEROID. Pharmacy: [facility], [address] - Last Documented On 02/14/2024 8:28AM By Amirah MYERS ; [facility] Ubrelvy 100 MG Oral Tablet Provider: MARTA Soto 30 day supply: 10 tablet, 5 refills Diagnosis: Migraine w/o aura, intractable, without status migrainosus take 1 tab at onset of migra ine. may repeat in 2 hours. max 2 tabs in 24 hours Pharmacy: [facility], [id number] - Last Documented On 4 3:43PM By Marta Storey PA-C ; [facility] Quviviq 25 MG Oral Tablet Provider: MARTA Soto 7 day supply: 7 tablet, 0 refills Diagnosis: Primary insomnia take 1 tab 30 min before bedtime Pharmacy: [facility], [address], [id number] - Last Documented On 02/14/2024 8:27AM By Amirah MYERS ; [facility] Current Medications (continue as prescribed) Zolpidem Tartrate 10 MG Oral Tablet 04/10/2024 Provider: MARTA Soto Diagnosis: Primary insomnia TAKE 1 TABLET BY MOUTH EVERYDAY AT BEDTIME Last Documented On 4 11:00AM By Marta Storey PA-C ; [facility] Atorvastatin Calcium 20 MG Oral Tablet 04/02/2024 Provider: MARTA Soto Diagnosis: Mixed hyperlipid emia TAKE 1 TABLET BY MOUTH EVERY DAY Last Documented On 4 8:24AM By Marta Storey PA-C ; [facility] Omeprazole 20 MG Oral Capsule Delayed Release 02/14/2024 Provider: MARTA Berrios PA-C Diagnosis: Gastro-esophagea l reflux dis with esophagitis, without bleed TAKE 1 CAPSULE BY MOUTH EVERY DAY Last Documented On 4 8:57AM By Marta Storey PA-C ; [facility] Atorvastatin Calcium 40 MG Oral Tablet 02/14/2024 Provider: MARTA STOREY PA-C Diagnosis: Hyperlipidemia, unspecified One tablet at bed time Last Documented On 4 8:57AM By Marta Storey PA-C ; [facility] Montelukast Sodium 10 MG Oral Tablet 02/14/2024 Provider: MARTA Soto Diagnosis: Allergic rhiniti s, unspecified One tablet daily Last Documented On 4 8:57AM By Marta Storey PA-C ; [facility] Rybelsus 3 MG Oral Tablet 02/14/2024 Provider: TOMMY STOREY PA-C Diagnosis: Morbid (severe) obesity due to excess calories 1 tab daily Last Documented On 4 9:28AM By Marta Storey PA-C ; [facility] Ubrelvy 100 MG Oral Tablet 02/14/2024 Provider: MARTA Soto Diagnosis: Morbid (severe) obesity due to excess calories take 1 tab at onset of heada melly. repeat after 2 hours if needed Last Documented On 4 9:28AM By Marta Storey PA-C ; [facility] Metoprolol Succinate ER 50 MG Oral Tablet Extended Release 24 Hour 04/29/2023 Provider: MARTA HARRELL PA-C Diagnosis: Essential (prima ry) hypertension TAKE 1 TABLET BY MOUTH EVERY DAY Last Documented On 3 8:35AM By aMrta Storey PA-C ; [facility] Xanax 0.25 MG Oral Tablet 10/24/2022 Provider: Diagnosis: [facility] Last Documented On 2 9:53AM By Marta Storey PA-C ; [facility] hydrOXYzine HCl 25 MG Oral Tablet 10/24/2022 Provide r: Diagnosis: [facility] Last Documented On 2 9:54AM By Marta Storey PA-C ; [facility] Medications Administered Includes: Administered Medications from this encounter No Administered Medications Recorded Vital Signs Includes: Vital Signs from this encounter Vital Name 11/14/2023 02:34P Blood Pressure Sitting L 146/102 Pulse Rate-Sitting (bpm) 94 Respiration Rate (breaths/min) 18 Height (in) 62 Weight (lb) 178.5 Body Mass Index 32.6 Body Surface Area 1.8 Oxygen Saturation (%) 97 Last Documented: On 11/14/2023 2:37PM ; [facility] Results Includes: Results discussed during this encounter No Results Recorded For Specified Dates History of Present Illness Includes: History of Present Illness from this encounter JOANA LEDEZMA is a 48 year old female. - Allergy list reviewed - Medication list reviewed - No systemic symptoms - Head symptoms - No otolaryngeal symptoms - No cardiovascular symptoms - No pulmonary symptoms - No gastrointestinal symptoms - No genitourinary symptoms - No musculoskeletal symptoms - Psychological symptoms Patient in clinic for check up. She is doing well. Appt with Courtney for weight management got rescheduled. BP initially high but came down in visit. Tolerating all medications. States williams works most of the time, but there are days she may not fall asleep or will be up in 4 hours. Would like to try quviviq. Patient has migraines a couple times/week. Typically right sided. Patient has been on topamax, sumatriptan, rizatriptan before. She denies relief with any therapies. Taking OTC at this time when she has a migraine which also do not provide relief. Will do labs today. Declines mammogram and colonoscopy. Social History Description Last Updated Excessive carbohydrate intake 08/20/2023 Last Documented On 4 2:33PM ; [facility] Food and nutrition-related knowledge def icit 08/20/2023 Last Documented On 4 2:33PM ; [facility] Inappropriate diet and eating habits Last Documented On 4 2:33PM ; [facility] Alcohol --seldom 03/20/2022 Last Documented On 4 2:33PM ; [facility] Drug use --THC 2x/wks 03/20/2022 Last Documented On 4 2:33PM ; [facility] Smoking status : Current everyday smoker 1/2 ppd 03/20/2022 Last Documented On 4 2:33PM ; [facility] Current smoker 12/11/2021 Last Documented On 4 2:33PM ; [facility] Smoker 07/25/2020 Last Documented On 4 2:33PM ; [facility] Social history unchanged 10/24/2015 Last Documented On 4 2:33PM ; [facility] Currently 08/22/2015 Last Documented On 4 2:33PM ; [facility] Tobacco use 08/22/2015 Last Documented On 4 2:33PM ; [facility] Procedures and Surgical History Includes: Procedures from this encounter Procedures Code Diagnosis Performing Provider Service L ocation Service Date intervention and counseling on cessation of tobacco use 4000F Last Documented On 4 2:37PM ; [facility] use of tobacco assessment performed 1000F Last Documented On 4 2:37PM ; [facility] review of medications documented 1160F Last Documented On 4 2:37PM ; [facility] Medical History Includes: Medical History addressed during this encounter Description Last Updated LMP: 200110/08/2022 Last Documented On 4 2:33PM ; [facility] No recent change in medical history 09/28 Last Documented On 4 2:33PM ; [facility] Family History Includes: Family History addressed during this encounter Description Last Updated Family history unchanged 10/24/2015 Last Documented On 4 2:33PM ; [facility] Review of Systems Includes: Review of Systems from this encounter Systemic: No fever, no chills, and no recent weight change. Head: Headache. No sinus pain. Neck: No neck pain. Otolaryngeal: [...] Time Check-Out Time Diagnosis CHECK UP MARTA STOREY PA-C [facility]- 11/14/19 24 2:30PM 3:19PM Primary Insomnia,Essenti al Hypertension Benign Insurance Includes: Active Insurance Policies Plan Name Member ID Group # Subscriber Relationship Effect sandie Dates 1 - [employer] [id number] RK [id number] NULL Self Clinical Notes Includes: Clinical Notes from this encounter * Progress note Date Encounter Last Documented by 11/14/2023 CHECK UP Last documented on 11/14/2023; 3:42 PM, MARTA STOREY PA-C; [facility] Active Problems & Conditions - [...] Complaint The Chief Complaint is: Check up. No concerns at this time. History of Present Illness RK LEDEZMA is a 48 year old female. - Allergy list reviewed - Medication list reviewed - No systemic symptoms - Head symptoms - No otolaryngeal symptoms - No cardiovascular symptoms - No pulmonary symptoms - No gastrointestinal symptoms - No genitourinary symptoms - No musculoskeletal symptoms - Psychological symptoms Patient in clinic for check up. She is doing well. Appt with Courtney for weight management got rescheduled. BP initially high but came down in visit. Tolerating all medications. States williams works most of the time, but there are days she may not fall asleep or will be up in 4 hours. Would like to try quviviq. Patient has migraines a couple times/week. Typically right sided. Patient has been on topamax, sumatriptan, rizatriptan before. She denies relief with any therapies. Taking OTC at this time when she has a migraine which also do not provide relief. Will do labs today. Declines mammogram and colonoscopy. Current Medication - Atorvastatin Calcium 20 MG Oral Tablet TAKE 1 TABLET BY MOUTH EVERY DAY, 30 days, 11 refills - hydrOXYzine HCl 25 MG Oral Tablet [facility], 0 days, 0 refills - Metoprolol Succinate ER 50 MG Oral Tablet Extended Release 24 Hour TAKE 1 TABLET BY MOUTH EVERY DAY, 30 days, 11 refills - Omeprazole 20 MG Oral Capsule Delayed Release TAKE 1 CAPSULE BY MOUTH EVERY DAY, 30 days, 5 refills - Xanax 0.25 MG Oral Tablet One tablet twice a day [facility], 0 days, 0 refills - Zolpidem Tartrate 10 MG Oral Tablet TAKE 1 TABLET BY MOUTH EVERYDAY AT BEDTIME, 30 days, 0 refills Past Medical/Surgical History [...] chills, and no recent weight change. Head: Headache. No sinus pain. Neck: No neck pain. Otolaryngeal: No earache, no nasal discharge, and no sore throat. Cardiovascular: No chest pain or discomfort and no palpitations. Pulmonary: No dyspnea and no cough. Gastrointestinal: No nausea, no vomiting, no abdominal pain, and no melena. No diarrhea. Musculoskeletal: No localized joint pain. Neurological: No dizziness. Psychological: No anxiety and no depression. Physical Findings - Vitals taken 11/14/2023 02:34 pm BP-Sitting L 146/102 mmHg Pulse Rate-Sitting 94 bpm Respiration Rate 18 per min Height 62 in Weight 178 lbs 8 oz Body Mass Index 32.6 kg/m2 Body Surface Area 1.8 m2 Oxygen Saturation 97 % General Appearance: - Well developed. - [...] normal. Palpation: - Abdominal non-tender. Assessment - [I10 - Essential (primary) hypertension] Benign essential hypertension - [F51.01 - Primary insomnia] Primary insomnia Therapy - Intervention and counseling on cessation of tobacco use. Plan StartCited - Migraine w/o aura, intractable, without status migrainosus Ubrelvy 100 MG tablet take 1 tab at onset of migraine. may repeat in 2 hours. max 2 tabs in 24 hours, 30 days, 5 refills EndCited StartCited - Other Ubrelvy 100 MG tablet TAKE ONE TABLET AT MIGRAINE ONSET. MAY REPEAT IN 2 HOURS IF NEEDED. DO NOT EXCEED MORE THAN 2 DOSES IN 24 HOUR PEROID., 30 days, 0 refills EndCited StartCited - Primary insomnia Quviviq 25 MG tablet take 1 tab 30 min before bedtime, 7 days, 0 refills EndCited Will give sample of ubrelvy and send rx. Patient has tried and failed 2 triptans Sending short rx of quviviq to try. May transition to this if more helpful than ambien May return to ambien if this does not work Do not take both at same time Labs today Encouraged colonoscopy and mammogram. RTC 3 months, sooner if needed. Practice Management Use of tobacco assessment performed Review of medications documented. Health Reminders - Assess Blood Pressure satisfied 11/14/2023. - Assess BMI satisfied 11/14/2023. - Assess Tobacco Use satisfied 11/14/2023. - Smoking & Tobacco Cessation Intervention and Counseling satisfied 11/14/2023.
--- OUTSIDE RECORDS SUMMARY | 2025-01-02 12:20 | XMS_ITS | Clinical Summary ---
Author Organization [facility] Address [address] [place] [address] Care Team Providers Care Mold Holder Name Role Phone Awilda Grissom MD Primary Care Provider [phone] Allergies No known active allergies Medications acetaminophen (TYLENOL) 500 mg tablet Take 2 tablets (1,000 mg total) by mouth every 8 (eight) hours as needed for pain for up to 20 doses 40 tablet 3 Active ibuprofen (ADVIL,MOTRIN) 600 mg tablet Take 1 tablet (600 mg total) by mouth every 6 (six) hours as needed for pain for up to 30 doses 30 tablet 3 Active methocarbamoL (ROBAXIN) 500 mg tablet Take 1 tablet (500 mg total) by mouth 3 (three) times a day as needed for muscle spasms Do not drink alcohol, drive a vehicle or operate machinery, or take with other sedating medications 18 tablet 3 Active lidocaine (LIDODERM) 5 % Place 1-3 patches on the skin daily Remove & discard patch within 12 hours or as directed by . 30 patch 3 Active Social History Tobacco Use Types Packs/Day Years Used Date Smoking Tobacco: Never Assessed Personal Safety Answer Date Recorded Have you ever been in or are you currently in a harmful physical or emotional relationship or is someone making you feel afraid or unsafe? 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 Gender Identity Not on file Sexual Orientation Not on file Obstetrics History Last Filed Vital Signs Vital Sign Reading Time Taken Comments Blood Pressure 173/76 05/20/2023 11:45 PM CDT Pulse 64 05/20/2023 11:45 PM CDT Temperature 36.3 C (97.4 F) 05/20/2023 9:42 PM CDT Respiratory Rate 18 05/20/2023 11:45 PM CDT Oxygen Saturation 98% 05/20/2023 11:45 PM CDT Inhaled Oxygen Concentration - - Weight 79.4 kg (175 lb) 05/20/2023 9:42 PM CDT Height 157.5 cm (5' 2 ) 05/20/2023 9:42 PM CDT Body Mass Index 32.01 05/20/2023 9:42 PM CDT Plan of Treatment Health Maintenance Due Date Last Done Comments Breast Cancer Screening-Mammogram 1977 Cervical Cancer Screening 1977 Colon Cancer Screening-Colonoscopy 1977 Depression Screening 1977 Hepatitis C Screening 1977 DTaP/Tdap/Td Vaccine (1 - Tdap) 1988 Hepatitis B Screening 1995 Regular Well Visit/Exam 18-64 1995 Influenza Vaccine (#1) 2024 Pneumococcal vaccine <65 Aged Out No longer eligible based on patient's age to complete this topic Insurance [facility] H[facility] Care Teams Mold Holder Relationship Specialty Start Date End Date Awilda Grissom MD [address] [place] [id number] PCP - General 03/22/17
--- OUTSIDE RECORDS SUMMARY | 2025-01-02 12:20 | XMS_ITS | Clinical Summary ---
Author Organization [facility] Address [address] [place] [address] Care Team Providers Care Community Administrator Name Role Phone Unavailable Primary Care Provider Unavailabl e Source Comments [facility],non-owned Affiliates and Associated Physician Practices is amultiple site organization consisting of ambulatory clinics and hospital sitesin [place], [place], [place] and [place]. This disclosure is being madepursuant to the Care Everywhere program and may not contain all information available regarding this patient. Last updated 18.[facility] Social History Tobacco Use Types Packs/Day Years Used Date Smoking Tobacco: Never Assessed Sex and Gender Information Value Date Recorded Sex Assigned at Not on file Gender Identity Not on file Sexual Orientation Not on file Plan of Treatment Health Maintenance Due Date Last Done Comments COLOGUARD (AGES 45-75) - COL ON CA SCREENING 1977 COLON MONITORING 1977 COLONOSCOPY - COLON CA SCREENING 1977 CT COLONOGRAPHY - COLON CA SCREENING 1977 Colorectal Cancer Screening 1977 FIT - COLON CA SCREENING 1977 FLEX SIG - COLON CA SCREENING 1977 LIPID TESTING 1977 MAMMOGRAM 1977 PAP SMEAR 1977 HIV SCREENING 1992 HEPATITIS C SCREENING 06/19/1995 DTAP/TDAP/TD VACCINES (1 - Tdap) 1996 HEPATITIS B VACCINE (1 of 3 - 19+ 3-dose series) 1996 COVID-19 VACCINE ( - 2023-2 5 season) 2024 INFLUENZA VACCINE (#1) 2024 DEPRESSION SCREENING 10/28/2024 ZOSTER VACCINE (1 of 2) 2027 HIB VACCINE Aged Out No longer eligi ble based on patient's age to complete this topic HPV VACCINE Aged Out No longer eligi ble based on patient's age to complete this topic MENINGOCOCCAL (Group B) VACCINE Aged Out No longer eligible based on patient's age to complete this topic MENINGOCOCCAL VACCINE Aged Out No tiara rob eligible based on patient's age to complete this topic PNEUMOCOCCAL VACCINE Aged Out No long er eligible based on patient's age to complete this topic
--- OUTSIDE RECORDS SUMMARY | 2025-01-02 12:20 | XMS_ITS | Continuity of Care Document ---
Author Organization [facility] Address [address] [place] [address] [place] [address] Phone Care Team Providers Care Quality Control Industrial Engineer Name Role Phone Brian Sanz MD Unavailable Unavailable Allergies, Adverse Reactions, Alerts Substance Reaction Status Criticality No Known Allergies Active No Inform ation Medications Medication Instructions Dosage Effective Dates (start - stop) Status Comments Nuvigil 150 mg tablet take 1 tablet (150MG) by oral route every day in the morning 150 MG - Active Ambien 5 mg tablet take 1 Tablet (5MG) by oral route every bedtime at bedtime 5 MG - Active Xanax 2 mg tablet take 1 tablet (2MG) by oral route 3 times every day 2 MG - Active avoid driving or operate machines Procedures Procedure Date OFFICE/OUTPATIENT VISIT, EST OFFICE/OUTPATIENT VISIT, EST OFFICE/OUTPATIENT VISIT, EST OFFICE/OUTPATIENT VISIT, EST OFFICE/OUTPATIENT VISIT, EST OFFICE/OUTPATIENT VISIT, EST OFFICE/OUTPATIENT VISIT, EST OFFICE/OUTPATIENT VISIT, EST Advance Directives Directive Yes / No Effective Date File Name No Information Encounters Encounter Description Practice Location Reason(s) For Visit Diagnoses Date Provider Providers Copied on Encounter OFFICE/OUTPA TIENT VISIT, EST [facility], [address] [place], [id number], [place] tel:[phone] [facility] anxiety (chief complaint) fatigue (chief complaint) INsomnia (chief complaint) Fatigue / MalaiseInsomnia, OtherGeneralized anxiety disorderHypertensio n, Unspecified 3 Yvon Torres. [address], [place], [place], [address] , [place]. tel:[phone] Referring Provider: Brian Sanz, [address], [place], [place], [id number]. tel:[phone] OFFICE/OUTPA TIENT VISIT, [facility], [address], [place], [place], [address], [place] tel:[phone] [facility] anxiety (chief complaint) Fatigue (chief complaint) Insomnia (chief complaint) Fatigue / MalaiseInsomnia, OtherGeneralized anxiety disorder 0 3 Yvon Torres. [address], [place], [place], [address] , [place]. [phone] Referring Provider: Brian Sanz, [address], [place], [place], [address]. tel:[phone] OFFICE/OUTPA TIENT VISIT, [facility], [address], [place], [place], [address], [place] tel:[phone] [facility] anxiety (chief complaint) fatigue (chief complaint) headache (chief complaint) Insomnia, OtherGeneralized anxiety disorderFatigue / Malaise 3 Yvon Torres. [address], [place], [place], [address] , [place]. tel:[phone] Referring Provider: Brian Sanz, [address], [place], [place], [id number]. tel:[phone] OFFICE/OUTPA TIENT VISIT, [facility], [address], [place], [place], [address], [place] tel:[phone] [facility] fatigue (chief complaint) insomaia (chief complaint) anxiety (chief complaint) headache (chief complaint) HeadacheInsomnia, OtherFatigue / MalaiseGeneralized anxiety disorder 3 Yvon Torres. [address], [place], [place], [address] , [place]. tel:[phone] Referring Provider: Brian Sanz [address], [place], [place], [address]. tel:[phone] OFFICE/OUTPA TIENT VISIT, [facility], [address], [place], [place], [address], [place] [phone] [facility] anxiety (chief complaint) Insomnia (chief complaint) fatigue (chief complaint) Fatigue / MalaiseInsomnia, OtherGeneralized anxiety disorder Dec 2 Yvon Torres. [address], [place], [place], [address] , [place]. tel:[phone] Referring Provider: Kyle Steiner [address], [place], [place], [address]. tel:[phone] OFFICE/OUTPA TIENT VISIT, [facility], [address], [place], [place], [address], [place] tel:[phone] [facility] back pain (chief complaint) anxiety (chief complaint) sore throat (chief complaint) Acute upper respiratory infections of other multiple sitesLumbagoGeneral ized anxiety disorderInsomnia, Other 2 Yvon Torres. [address], [place], [place], [address] , [place]. [phone] Referring Provider: Kyle Steiner [address], [place], [place], [address]. tel:[phone] OFFICE/OUTPA TIENT VISIT, [facility], [address], [place], [place], [address], [place] [phone] [facility] fastigue (chief complaint) anxiety (chief complaint) back pain (chief complaint) abdominal pain (chief complaint) insomnia (chief complaint) LumbagoFatigue / MalaiseGeneralized anxiety disorderAbdominal PainInsomnia, Other 0201 2 Yvon Torres. [address], [place], [place], [address] , [place]. tel:[phone] Referring Provider: Kyle Steiner [address], [place], [place], [address]. tel:[phone] OFFICE/OUTPA TIENT VISIT, EST [facility], [address] [place], [place], [address], tel:[phone] [facility] anxiety (chief complaint) headache (chief complaint) ADD (chief complaint) HeadacheAttention deficit disorder of childhood without mention of hyperactivityGenera lized anxiety disorder 2 Yvon Torres. [address], [place], [place], [address] , [place]. tel:[phone] Family History Family Member Type Diagnosis Age At Onset Mother Problem (finding) MVA Sister Problem (finding) Alive and well Father Problem (finding) Alive and well Payers Payer name Insurance type Covered green party ID Authoriza tion(s) No Information Social History Type Description Quantity Date Captured Comments Alcohol Use Details Caffeine Use Details Unknown Tobacco Use Status No Information Smoking Status Current every day smoker 2012 Sex Female Vital Signs Date / Time: Height Weight BMI Pulse Rate Blood Pressure Temperature Respiratory Rate Body Surface Area Head Circumference BMI percentile Pulse Ox Inhaled Ox 10:13 AM 62.00 in 129.00 lbs 23.5 9 kg/m eter (2) 78 /min 141/100 mm[Hg] 98.3 F 16 /min Chief Complaint And Reason For Visit From encounter dated '02/18/2013 09:00'. anxiety (chief complaint) fatigue (chief complaint) INsomnia (chief complaint) Plan Of Treatment Date Type Action Status Goal Tobacco cessation counseling completed Goal Tobacco cessation counseling completed Goal Tobacco cessation counseling completed Goal Tobacco cessation counseling completed Goal Tobacco cessation counseling completed Goal Tobacco cessation counseling completed Goal Tobacco cessation counseling completed Referral Ordered: US, PELVIC (NONOBSTETRIC); ordered History Of Present Illness Encounter Date Complaint History Of Prese nt Illness No Information Instructions Date Instruction Additional Infor dulce education about exer cise and stretching Related to Lumbago education about exer cise and stretching Related to Lumbago self relaxation technique Relate d to Generalized anxiety disorder Assessments Type Assessment Date No Information Mental Status Date Cognitive Assessment Orientation - Stella ed to time, place, person, situation.
--- OUTSIDE RECORDS SUMMARY | 2025-01-02 12:20 | XMS_ITS ---
Author Organization [facility] Address [address] [place] [address] Care Team Providers Care Senior Sous Chef Name Role Phone Bianca Angel Primary Care Provider REASON FOR VISIT New Refill Request Social History Sex Assigned At : Social History Observation Description Sex Assigned At Female Encounters Encounter Location Date Provider Diagnosis [address] [place] [address] 12/31/2024 Bianca Angel Plan Of Treatment Next Appt Details Provider Name:Bianca william, 01/11/2025 03:00:00 PM, [address] [place] [address] , [place], [address], Progress Notes * PER CarolineDOB:1975 ( 49 yo F)Acc No.[id number]:12/31/2024 Patient: Caroline DAUGHERTY :1975 A ge:49 Y S ex:Female Address:[address] [place] [address], [address] * true * Date: Generated for Printi ng/Fasteveng/eTransmitting on: 0 01/02/2025 12:20 PM 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
--- OUTSIDE RECORDS SUMMARY | 2025-01-02 12:20 | XMS_ITS | Referral Summary ---
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
--- OUTSIDE RECORDS SUMMARY | 2025-01-02 12:20 | XMS_ITS | Clinical Summary ---
Author Organization [facility] Address [address] [place] [address] Phone Care Team Providers Care Chief Executive Or Managing Director Name Role Phone JAIME SNIDER MD Primary Care Provider [phone] Reason for Visit and Chief Complaint * PHONE CALL Problems Includes: Problems addressed during this encounter and other active Problems Current Visit Onset Date Resolved Date Provider Conditio n Status Tobacco Use 06/21/2020 02/05/2023 ELOISA BENJAMIN-C R esolved Last Documented On 3 9:44AM ; [facility] Tobacco Use 05/05/2017 KIRT LARSON MD [place] Last Documented On 9 5:29PM ; [facility] Tobacco Use 03/01/2016 KIRT LARSON MD Act sandie Last Documented On 7 8:54AM ; [facility] Past Visits Onset Date Resolved Date Provider Condition Status Esophagitis Chronic Reflux 02/14/2024 ELOISA STOREY PA-C Active Last Documented On 02/14/2024 8:55AM ; [facility] Note: Unchanged Allergic Rhinitis 02/14/2024 ELOISA STOREY PA-C Active Last Documented On 02/14/2024 8:55AM ; [facility] Note: Unchanged Hyperlipidemia 03/20/2022 THANH SAEED PA-C Active Last Documented On 2 5:01PM ; [facility] Bipolar Disorder Nos 07/01/2020 KIRT BLAIR MD Active Last Documented On 0 9:25AM ; [facility] Opioid Use - Uncomplicated 12/18/2019 KIRT HYMAN MD Active Last Documented On 0 3:16PM ; [facility] Cervicalgia 09/27/2019 KIRT LARSON MD Act sandie Last Documented On 9 10:46PM ; [facility] Chronic Daily Headache 11/12/2018 KIRT MCCLOUD MD Active Last Documented On 9 7:27PM ; [facility] Arthralgia Knee / Patella / Tibia / Fibula 09/01/2017 KIRT LARSON MD Active Last Documented On 7 5:29PM ; [facility] Essential Hypertension Benign 05/25/2016 KIRT LARSON MD Active Last Documented On 6 11:45AM ; [facility] Chronic Bronchitis - Simple 05/25/2016 KIRT LARSON MD Active Last Documented On 7 8:53AM ; [facility] Sleep Disorder Circadian Rhy thm, Shift Work Type 03/01/2016 KIRT LARSON MD Active Last Documented On 6 10:28AM ; [facility] Adjustment Disorder with Anxiety 10/24/2015 RAZA LARSON MD Active Last Documented On 6 10:29AM ; [facility] Primary Insomnia 10/24/2015 KIRT Muniz Active Last Documented On 6 10:28AM ; [facility] Sciatica Right Sided 10/24/2015 KIRT BLAIR MD Active Last Documented On 6 10:29AM ; [facility] Plan of Treatment Pending Tests Order Diagnosis Results Due Ordering P rovider Therapy - Physical Therapy Back Lumbago with sciatica, right side 05/29/23 ELOISA BENJAMIN-C Last Documented On 3 9:35AM ; [facility] Radiology @ [facility] - CT Scan Lumbar Spine CT w/o contrast Lumbago with sciatica, right side 07/27/23 ELOISA STOREY PA-C Last Documented On 3 9:43AM ; [facility] Referrals To Diagnosis Weight Management MESHA Claire INSULATION CUTTER-C Obesity, unspecified Last Documented On 3 2:58PM ; [facility] Diabetic Management MESHA ACEVESESTEBANConnie LAWN MOWER-C Obesity, unspecified Note: weight management Last Documented On 3 11:48AM ; [facility] Assessments Includes: Assessments from this encounter No Assessments Recorded Medical Equipment - Implanted Devices Includes: Current Devices No Medical Equipment Recorded Medications Includes: Medications discussed during this encounter and other current Medications Current Medications (continue as prescribed) Zolpidem Tartrate 10 MG Oral Tablet 04/10/2024 Provider: ELOISA Soto Diagnosis: Primary insomnia TAKE 1 TABLET BY MOUTH EVERYDAY AT BEDTIME Last Documented On 4 11:00AM By Eloisa Storey PA-C ; [facility] Atorvastatin Calcium 20 MG Oral Tablet 04/02/2024 Provider: ELOISA Soto Diagnosis: Mixed hyperlipid emia TAKE 1 TABLET BY MOUTH EVERY DAY Last Documented On 4 8:24AM By Eloisa Storey PA-C ; [facility] Omeprazole 20 MG Oral Capsule Delayed Release 02/14/2024 Provider: ELOISA Berrios PA-C Diagnosis: Gastro-esophagea l reflux dis with esophagitis, without bleed TAKE 1 CAPSULE BY MOUTH EVERY DAY Last Documented On 4 8:57AM By Eloisa Storey PA-C ; [facility] Atorvastatin Calcium 40 MG Oral Tablet 02/14/2024 Provider: ELOISA STOREY PA-C Diagnosis: Hyperlipidemia, unspecified One tablet at bed time Last Documented On 4 8:57AM By Eloisa Storey PA-C ; [facility] Montelukast Sodium 10 MG Oral Tablet 02/14/2024 Provider: ELOISA Soto Diagnosis: Allergic rhiniti s, unspecified One tablet daily Last Documented On 4 8:57AM By Eloisa Storey PA-C ; [facility] Rybelsus 3 MG Oral Tablet 02/14/2024 Provider: TOMMY STOREY PA-C Diagnosis: Morbid (severe) obesity due to excess calories 1 tab daily Last Documented On 4 9:28AM By Eloisa Storey PA-C ; [facility] Ubrelvy 100 MG Oral Tablet 02/14/2024 Provider: ELOISA Soto Diagnosis: Morbid (severe) obesity due to excess calories take 1 tab at onset of heada mlely. repeat after 2 hours if needed Last Documented On 4 9:28AM By Eloisa Storey PA-C ; [facility] Ubrelvy 100 MG Oral Tablet 11/14/2023 Provider: ELOISA Soto Diagnosis: Migraine w/o aur a, intractable, without status migrainosus take 1 tab at onset of migra ine. may repeat in 2 hours. max 2 tabs in 24 hours Last Documented On 4 3:43PM By Eloisa Storey PA-C ; [facility] Metoprolol Succinate ER 50 MG Oral Tablet Extended Release 24 Hour 04/29/2023 Provider: ELOISA HARRELL PA-C Diagnosis: Essential (prima ry) hypertension TAKE 1 TABLET BY MOUTH EVERY DAY Last Documented On 3 8:35AM By Eloisa Storey PA-C ; [facility] Xanax 0.25 MG Oral Tablet 10/24/2022 Provider: Diagnosis: Bianca Lealan at [place] Last Documented On 2 9:53AM By Eloisa Storey PA-C ; [facility] hydrOXYzine HCl 25 MG Oral Tablet 10/24/2022 Provide r: Diagnosis: Bianca Lealan at [place] Last Documented On 2 9:54AM By Eloisa Storey PA-C ; [facility] Medications Administered Includes: Administered Medications from this encounter No Administered Medications Recorded Results Includes: Results discussed during this encounter No Results Recorded For Specified Dates History of Present Illness Includes: History of Present Illness from this encounter No History of Present Illness Recorded Social History Description Last Updated Alcohol --seldom 03/20/2022 Last Documented On 3 1:15PM ; [facility] Drug use --THC 2x/wks 03/20/2022 Last Documented On 3 1:15PM ; [facility] Smoking status : Current everyday smoker 1/2 ppd 03/20/2022 Last Documented On 3 1:15PM ; [facility] Current smoker 12/11/2021 Last Documented On 3 1:15PM ; [facility] Smoker 07/25/2020 Last Documented On 3 1:15PM ; [facility] Social history unchanged 10/24/2015 Last Documented On 3 1:15PM ; [facility] Currently 08/22/2015 Last Documented On 3 1:15PM ; [facility] Tobacco use 08/22/2015 Last Documented On 3 1:15PM ; [facility] Medical History Includes: Medical History addressed during this encounter Description Last Updated LMP: 2002 10/08/2022 Last Documented On 3 1:15PM ; [facility] No recent change in medical history 09/28 Last Documented On 3 1:15PM ; [facility] Family History Includes: Family History addressed during this encounter Description Last Updated Family history unchanged 10/24/2015 Last Documented On 3 1:15PM ; [facility] Review of Systems Includes: Review of [...] Location Date Check-In Time Check-Out Time Diagnosis * PHONE CALL ELOISA STOREY PA-C 07/18/2023 1:15PM 11:59PM Insurance Includes: Active Insurance Policies Plan Name Member ID Group # Subscriber Relationship Effect sandie Dates - T [id number] Self Clinical Notes Includes: Clinical Notes from this encounter * Progress note Date Encounter Last Documented by 07/18/2023 * PHONE CALL Last documented on 07/18/2023; 1:50 PM, ELOISA STOREY PA-C; [facility] Active Problems & Conditions - F43.22 - [...] - Z72.0 - Tobacco Use Chief Complaint Phone Call - Chief Concern: Reason for call: Patient would like referral to [facility] for weight loss. pt phone # for return call: Date/Initials: 07/18/23, W. Current Medication - Anoro Ellipta 62.5-25 MCG/INH Inhalation Aerosol Powder Breath Activated as directed use once a day at bedtime,, 90 days, 2 refills - Armodafinil 250 MG Oral Tablet Bianca Stanley at [place], 0 days, 0 refills - Atorvastatin Calcium 20 MG Oral Tablet TAKE 1 TABLET BY MOUTH EVERY DAY, 30 days, 11 refills - hydrOXYzine HCl 25 MG Oral Tablet Bianca Stanley at [place], 0 days, 0 refills - Metoprolol Succinate ER 50 MG Oral Tablet Extended Release 24 Hour TAKE 1 TABLET BY MOUTH EVERY DAY, 30 days, 11 refills - Omeprazole 20 MG Oral Capsule Delayed Release 1 capsule daily, 30 days, 5 refills - traMADol HCl 50 MG Oral Tablet 1 tab BID PRN pain, 14 days, 0 refills - Vyleesi 1.75 MG/0.3ML Subcutaneous Solution Auto-injector INJECT 1 PEN UNDER SKIN 45 MIN PRIOR TO SEXUAL ACTIVITY MAX 1 DOSE PER DAY OR 8 PER MONTH, 30 days, 1 refills - Xanax 0.25 MG Oral Tablet One tablet twice a day Bianca Stanley at [place], 0 days, 0 refills - Zolpidem Tartrate 10 MG Oral Tablet TAKE 1 TABLET BY MOUTH EVERYDAY AT BEDTIME *DNF 05/30, 30 days, 0 refills Past Medical/Surgical History Reported: No recent change in medical history and LMP: 2001. Social History Social history unchanged. Tobacco use: Current smoker, smoker, and smoking status: Current everyday smoker 1/2 ppd. Alcohol: Alcohol --seldom. Drug Use: Drug use --THC 2x/wks. Marital: Currently . Allergies - No Known Allergies Family History Family history unchanged Plan StartCited - Obesity, unspecified Referral: Weight Management EndCited StartCited - Other PHY ORDER/COMMENT referral entered EndCited Health Reminders - Assess Tobacco Use satisfied 07/18/2023.
--- OUTSIDE RECORDS SUMMARY | 2025-01-02 12:21 | XMS_ITS | Clinical Summary ---
Author Organization 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 She wants to talk about alergies. She has tried most otc meds Problems Includes: Problems addressed during this encounter and other active Problems Current Visit Onset Date Resolved Date Provider Viri n Status Esophagitis Chronic Reflux 02/14/2024 MARTA JOHNSON PA-C Active Last Documented On 02/14/2024 8:55AM ; [facility] Note: Unchanged Allergic Rhinitis 02/14/2024 MARTA JOHNSON PA-C Active Last Documented On 02/14/2024 8:55AM ; [facility] Note: Unchanged Hyperlipidemia 03/20/2022 THANH Estrada LRIIANOK INS PA-C Active Last Documented On 2 5:01PM ; [facility] Tobacco Use 06/21/2020 02/05/2023 MARTA JOHNSON PA-C R esolved Last Documented On 3 9:44AM ; [facility] Essential Hypertension Benign 09/27/2019 ANILA JOHNSON PA-C Inactive Last Documented On 2 7:17PM ; [facility] Tobacco Use 05/05/2017 KIRT LARSON MD [place] ctive Last Documented On 9 5:29PM ; [facility] Essential Hypertension Benign 05/25/2016 KIRT LARSON MD Active Last Documented On 6 11:45AM ; [facility] Chronic Bronchitis - Simple 05/25/2016 KIRT LARSON MD Active Last Documented On 7 8:53AM ; [facility] Tobacco Use 03/01/2016 KIRT LARSON MD Act sandie Last Documented On 7 8:54AM ; [facility] Past Visits Onset Date Resolved Date Provider Condition Status Bipolar Disorder Nos 07/01/2020 KIRT BLAIR MD Active Last Documented On 0 9:25AM ; [facility] Opioid Use - Uncomplicated 12/18/2019 KIRT HYMAN MD Active Last Documented On 0 3:16PM ; [facility] Cervicalgia 09/27/2019 KIRT LARSON MD Act sandie Last Documented On 9 10:46PM ; [facility] Chronic Daily Headache 11/12/2018 KIRT MCCLOUD MD Active Last Documented On 9 7:27PM ; [facility] Arthralgia Knee / Patella / Tibia / Fibula 09/01/2017 KIRT LARSON MD Active Last Documented On 7 5:29PM ; [facility] Sleep Disorder Circadian Rhy thm, Shift Work Type 03/01/2016 KIRT LARSON MD Active Last Documented On 6 10:28AM ; [facility] Adjustment Disorder with Anxiety 10/24/2015 RAZA LARSON MD Active Last Documented On 6 10:29AM ; [facility] Primary Insomnia 10/24/2015 KIRT Muniz Active Last Documented On 6 10:28AM ; [facility] Sciatica Right Sided 10/24/2015 KIRT BLAIR MD Active Last Documented On 6 10:29AM ; [facility] Plan of Treatment Start montelukast for allergy symptoms. Increase atorvastatin. Rybelsus samples given to try. Discussed 30 min before food/drink administration. Ubrelvy sample given. Encouraged patient to cut back on soda intake, increase water intake. RTC 3 months, sooner if needed. - Last Documented On 02/14/2024 9:28AM ; [facility] Pending Tests Order Diagnosis Results Due Ordering P rovider Therapy - Physical Therapy Back Lumbago with sciatica, right side 05/29/23 MARTA JOHNSON PA-C Last Documented On 3 9:35AM ; [facility] Radiology @ [facility] - CT Scan Lumbar Spine CT w/o contrast Lumbago with sciatica, right side 07/27/23 MARTA JOHNSON PA-C Last Documented On 3 9:43AM ; [facility] Assessments Includes: Assessments from this encounter Findings - [Z72.0 - Tobacco use] Tobacco use - Last Documented On 02/14/2024 9:28AM ; [facility] - [I10 - Essential (primary) hypertension] Benign essential hypertension - Last Documented On 02/14/2024 9:28AM ; [facility] - [J41.0 - Simple chronic bronchitis] Simple chronic bronchitis - Last Documented On 02/14/2024 9:28AM ; [facility] - [K21.00 - Gastro-esophageal reflux disease with esophagitis, without bleeding] Chronic reflux esophagitis - Last Documented On 02/14/2024 9:28AM ; [facility] - [E78.5 - Hyperlipidemia, unspecified] Hyperlipidemia - Last Documented On 02/14/2024 9:28AM ; [facility] Medical Equipment - Implanted Devices Includes: Current Devices No Medical Equipment Recorded Medications Includes: Medications discussed during this encounter and other current Medications Discontinued / Stopped on this date JAIME SNIDER MD on 11/18/2023 Zolpidem Tartrate 10 MG Oral Tablet Provi avery: JAIME SNIDER MD Diagnosis: Primary insomnia Last Documented On 8:56AM By Marta Johnson PA-C ; [facility] Ubrelvy 100 MG Oral Tablet Provider: Lorraine JOHNSON PA-C Diagnosis: Last Documented On 02/14/2024 8:28AM By Amirah MYERS ; [facility] Quviviq 25 MG Oral Tablet Provider: TOMMY JOHNSON PA-C Diagnosis: Primary insomnia Last Documented On 02/14/2024 8:27AM By Amirah MYERS ; [facility] New / Renewed during this visit MARTA JOHNSON PA-C on 02/14/2024 Zolpidem Tartrate 10 MG Oral Tablet Provider: MARTA Soto 30 day supply: 30 tablet, 0 refills Diagnosis: Primary insomnia TAKE 1 TABLET BY MOUTH EVERY DAY AT BEDTIME Pharmacy: [address], [address] - Last Documented On 4 8:10AM By Marta Johnson PA-C ; [facility] Omeprazole 20 MG Oral Capsule Delayed Release Provider: MARTA Berrios PA-C 30 day supply: 30 capsule, 5 refills Diagnosis: Gastro-esophageal reflux dis with esophagitis, without bleed TAKE 1 CAPSULE BY MOUTH EVERY DAY Pharmacy: [address], [address] - Last Documented On 4 8:57AM By Marta Johnson PA-C ; [facility] Atorvastatin Calcium 40 MG Oral Tablet Provider: MARTA JOHNSON PA-C 30 day supply: 30 tablet, 5 refills Diagnosis: Hyperlipidemia, unspecified One tablet at bed time Pharmacy: [facility] [place], [address] - Last Documented On 4 8:57AM By Marta Johnson PA-C ; [facility] Montelukast Sodium 10 MG Oral Tablet Provider: MARTA JOHNSON PA-C 30 day supply: 30 tablet, 5 refills Diagnosis: Allergic rhinitis, unspecified One tablet daily Pharmacy: [address], [address] - Last Documented On 4 8:57AM By Marta Johnson PA-C ; [facility] Rybelsus 3 MG Oral Tablet Provider: TOMMY JOHNSON PA-C 30 day supply: 30 tablet, 1 refills Diagnosis: Morbid (severe) obesity due to excess calories 1 tab daily Last Documented On 4 9:28AM By Marta Johnson PA-C ; [facility] Ubrelvy 100 MG Oral Tablet Provider: MARTA Soto 30 day supply: 2 tablet, 0 refills Diagnosis: Morbid (severe) obesity due to excess calories take 1 tab at onset of heada melly. repeat after 2 hours if needed Last Documented On 4 9:28AM By Marta Johnson PA-C ; [facility] Current Medications (continue as prescribed) Zolpidem Tartrate 10 MG Oral Tablet 04/10/2024 Provider: MARTA Soto Diagnosis: Primary insomnia TAKE 1 TABLET BY MOUTH EVERYDAY AT BEDTIME Last Documented On 4 11:00AM By Marta Johnson PA-C ; [facility] Atorvastatin Calcium 20 MG Oral Tablet 04/02/2024 Provider: MARTA Soto Diagnosis: Mixed hyperlipid emia TAKE 1 TABLET BY MOUTH EVERY DAY Last Documented On 4 8:24AM By Marta Johnson PA-C ; [facility] Ubrelvy 100 MG Oral Tablet 11/14/2023 Provider: MARTA Soto Diagnosis: Migraine w/o aur a, intractable, without status migrainosus take 1 tab at onset of migra ine. may repeat in 2 hours. max 2 tabs in 24 hours Last Documented On 4 3:43PM By Marta Johnson PA-C ; [facility] Metoprolol Succinate ER 50 MG Oral Tablet Extended Release 24 Hour 04/29/2023 Provider: MARTA HARRELL PA-C Diagnosis: Essential (prima ry) hypertension TAKE 1 TABLET BY MOUTH EVERY DAY Last Documented On 3 8:35AM By Marta Johnson PA-C ; [facility] Xanax 0.25 MG Oral Tablet 10/24/2022 Provider: Diagnosis: Bianca Le[facility] at [place] Last Documented On 2 9:53AM By Marta Johnson PA-C ; [facility] hydrOXYzine HCl 25 MG Oral Tablet 10/24/2022 Provide r: Diagnosis: Bianca Lealan at [place] Last Documented On 2 9:54AM By Marta Johnson PA-C ; [facility] Medications Administered Includes: Administered [...] 96 Last Documented: On 02/14/2024 8:30AM ; 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 BP elevated today. Social History Description Last Updated Excessive carbohydrate intake 08/20/2023 Last Documented On 4 8:25AM ; [facility] Food and nutrition-related knowledge def icit 08/20/2023 Last Documented On 4 8:25AM ; [facility] Inappropriate diet and eating habits Last Documented On 4 8:25AM ; [facility] Alcohol --seldom 03/20/2022 Last Documented On 4 8:25AM ; [facility] Drug use --THC 2x/wks 03/20/2022 Last Documented On 4 8:25AM ; [facility] Smoking status : Current everyday smoker 1/2 ppd 03/20/2022 Last Documented On 4 8:25AM ; [facility] Current smoker 12/11/2021 Last Documented On 4 8:25AM ; [facility] Smoker 07/25/2020 Last Documented On 4 8:25AM ; [facility] Social history unchanged 10/24/2015 Last Documented On 4 8:25AM ; [facility] Currently 08/22/2015 Last Documented On 4 8:25AM ; [facility] Tobacco use 08/22/2015 Last Documented On 4 8:25AM ; [facility] Procedures and Surgical History Includes: Procedures from this encounter Procedures Code Diagnosis Performing Provider Service L ocation Service Date review of medications documented 1160F Last Documented On 4 8:25AM ; [facility] Medical History Includes: Medical History addressed during this encounter Description Last Updated LMP: 2002 10/08/2022 Last Documented On 4 8:25AM ; [facility] No recent change in medical history 09/28 Last Documented On 4 8:25AM ; [facility] Family History Includes: Family History addressed during this encounter Description Last Updated Family history unchanged 10/24/2015 Last Documented On 4 8:25AM ; [facility] Review of Systems Includes: Review of Systems [...] Time Diagnosis CHECK UP MARTA JOHNSON PA-C [facility]- 02/14/20 24 8:22AM 8:51AM Chronic Bronchitis - Simple,Esophagit is Chronic Reflux,Essential Hypertension Benign,Hyperlipi demia,Assessment of Tobacco Use Insurance Includes: Active Insurance Policies Plan Name Member ID Group # Subscriber Relationship Effect sandie Dates 1 - [employer] [id number] [id number] Self Clinical Notes Includes: Clinical Notes from this encounter * Progress note Date Encounter Last Documented by 02/14/2024 CHECK UP Last documented on 02/14/2024; 9:28 AM, MARTA JOHNSON PA-C; 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 BP elevated today. Current Medication - Atorvastatin Calcium 20 MG Oral Tablet TAKE 1 TABLET BY MOUTH EVERY DAY, 30 days, 11 refills - hydrOXYzine HCl 25 MG Oral Tablet Bianca Angel at [place], 0 days, 0 refills - Metoprolol Succinate [...] tablet twice a day Bianca Angel at [place], 0 days, 0 refills Past Medical/Surgical History [...]
--- OUTSIDE RECORDS SUMMARY | 2025-01-02 12:21 | XMS_ITS | Clinical Summary ---
Author Organization [facility] Address [address] [place] [address] Phone Care Team Providers Care Whipper Name Role Phone JAIME SNIDER MD Primary Care Provider [phone] Reason for Visit and Chief Complaint The Chief Complaint is: Check up. No concerns at this time Problems Includes: Problems addressed during this encounter and other active Problems Current Visit Onset Date Resolved Date Provider Conditio n Status Tobacco Use 06/21/2020 02/05/2023 MARTA WHITEC R esolved Last Documented On 3 9:44AM ; [facility] Essential Hypertension Benign 09/27/2019 ANILA WHITEC Inactive Last Documented On 2 7:17PM ; [facility] Tobacco Use 05/05/2017 KIRT LARSON MD [place] ctive Last Documented On 9 5:29PM ; [facility] Essential Hypertension Benign 05/25/2016 KIRT LARSON MD Active Last Documented On 6 11:45AM ; [facility] Tobacco Use 03/01/2016 KIRT LARSON MD Act sandie Last Documented On 7 8:54AM ; [facility] Primary Insomnia 10/24/2015 KIRT Muniz Active Last Documented On 6 10:28AM ; [facility] Past Visits Onset Date Resolved Date Provider Condition Status Esophagitis Chronic Reflux 02/14/2024 MARTA BENJAMIN-C Active Last Documented On 02/14/2024 8:55AM ; [facility] Note: Unchanged Allergic Rhinitis 02/14/2024 MARTA STOREY PA-C Active Last Documented On 02/14/2024 8:55AM ; [facility] Note: Unchanged Hyperlipidemia 03/20/2022 THANH VOGEL DARLIN SAENZ Active Last Documented On 2 5:01PM ; [facility] Bipolar Disorder Nos 07/01/2020 KIRT BLAIR MD Active Last Documented On 0 9:25AM ; [facility] Opioid Use - Uncomplicated 12/18/2019 KIRT HYMAN MD Active Last Documented On 0 3:16PM ; [facility] Cervicalgia 09/27/2019 KIRT LARSON MD Act sandie Last Documented On 9 10:46PM ; [facility] Chronic Daily Headache 11/12/2018 KIRT MCCLOUD MD Active Last Documented On 9 7:27PM ; [facility] Arthralgia Knee / Patella / Tibia / Fibula 09/01/2017 KIRT LARSON MD Active Last Documented On 7 5:29PM ; [facility] Chronic Bronchitis - Simple 05/25/2016 KIRT LARSON MD Active Last Documented On 7 8:53AM ; [facility] Sleep Disorder Circadian Rhy thm, Shift Work Type 03/01/2016 KIRT LARSON MD Active Last Documented On 6 10:28AM ; [facility] Adjustment Disorder with Anxiety 10/24/2015 RAZA LARSON MD Active Last Documented On 6 10:29AM ; [facility] Sciatica Right Sided 10/24/2015 KIRT BLAIR MD Active Last Documented On 6 10:29AM ; [facility] Plan of Treatment Will give [...] - Last Documented On 11/14/2023 3:42PM ; [facility] Pending Tests Order Diagnosis Results Due Ordering P rovider Therapy - Physical Therapy Back Lumbago with sciatica, right side 05/29/23 MARTA STOREY PA-C Last Documented On 3 9:35AM ; [facility] Radiology @ [facility] - CT Scan Lumbar Spine CT w/o contrast Lumbago with sciatica, right side 07/27/23 MARTA STOREY PA-C Last Documented On 3 9:43AM ; [facility] Instructions to patient Intervention and counseling on cessation of tobacco use Last Documented On 4 2:37PM ; [facility] Assessments Includes: Assessments from this encounter Findings - [I10 - Essential (primary) hypertension] Benign essential hypertension - Last Documented On 11/14/2023 3:42PM ; [facility] - [F51.01 - Primary insomnia] Primary insomnia - Last Documented On 11/14/2023 3:42PM ; [facility] Instructions Includes: Instructions from this encounter Instructions to patient Intervention and counseling on cessation of tobacco use Last Documented On 4 2:37PM ; [facility] Medical Equipment - Implanted Devices Includes: Current Devices No Medical Equipment Recorded Medications Includes: Medications discussed during this encounter and other current Medications Discontinued / Stopped on this date on 03/11/2018 Rizatriptan Benzoate 10 MG Oral Tablet Pr ovider: Diagnosis: Last Documented On 11/15/2023 11:22AM By Lizette MYERS ; [facility] New / Renewed during this visit MARTA STOREY PA-C on 11/14/2023 Ubrelvy 100 MG Oral Tablet Provider: MARTA Soto 30 day supply: 4 tablet, 0 refills Diagnosis: TAKE ONE TABLET AT MIGRAINE ONSET. MAY REPEAT IN 2 HOURS IF NEEDED. DO NOT EXCEED MORE THAN 2 DOSES IN 24 HOUR PEROID. Pharmacy: [facility], [address] - Last Documented On 02/14/2024 8:28AM By Amirah MYERS ; [facility] Ubrelvy 100 MG Oral Tablet Provider: MARTA Soto 30 day supply: 10 tablet, 5 refills Diagnosis: Migraine w/o aura, intractable, without status migrainosus take 1 tab at onset of migra ine. may repeat in 2 hours. max 2 tabs in 24 hours Pharmacy: [facility], [id number] - Last Documented On 4 3:43PM By Marta Storey PA-C ; [facility] Quviviq 25 MG Oral Tablet Provider: MARTA Soto 7 day supply: 7 tablet, 0 refills Diagnosis: Primary insomnia take 1 tab 30 min before bedtime Pharmacy: [facility], [address], [id number] - Last Documented On 02/14/2024 8:27AM By Amirah MYERS ; [facility] Current Medications (continue as prescribed) Zolpidem Tartrate 10 MG Oral Tablet 04/10/2024 Provider: MARTA Soto Diagnosis: Primary insomnia TAKE 1 TABLET BY MOUTH EVERYDAY AT BEDTIME Last Documented On 4 11:00AM By Marta Storey PA-C ; [facility] Atorvastatin Calcium 20 MG Oral Tablet 04/02/2024 Provider: MARTA Soto Diagnosis: Mixed hyperlipid emia TAKE 1 TABLET BY MOUTH EVERY DAY Last Documented On 4 8:24AM By Marta Storey PA-C ; [facility] Omeprazole 20 MG Oral Capsule Delayed Release 02/14/2024 Provider: MARTA Berrios PA-C Diagnosis: Gastro-esophagea l reflux dis with esophagitis, without bleed TAKE 1 CAPSULE BY MOUTH EVERY DAY Last Documented On 4 8:57AM By Marta Storey PA-C ; [facility] Atorvastatin Calcium 40 MG Oral Tablet 02/14/2024 Provider: MARTA STOREY PA-C Diagnosis: Hyperlipidemia, unspecified One tablet at bed time Last Documented On 4 8:57AM By Marta Storey PA-C ; [facility] Montelukast Sodium 10 MG Oral Tablet 02/14/2024 Provider: MARTA Soto Diagnosis: Allergic rhiniti s, unspecified One tablet daily Last Documented On 4 8:57AM By Marta Storey PA-C ; [facility] Rybelsus 3 MG Oral Tablet 02/14/2024 Provider: TOMMY STOREY PA-C Diagnosis: Morbid (severe) obesity due to excess calories 1 tab daily Last Documented On 4 9:28AM By Marta Storey PA-C ; [facility] Ubrelvy 100 MG Oral Tablet 02/14/2024 Provider: MARTA Soto Diagnosis: Morbid (severe) obesity due to excess calories take 1 tab at onset of heada melly. repeat after 2 hours if needed Last Documented On 4 9:28AM By Marta Storey PA-C ; [facility] Metoprolol Succinate ER 50 MG Oral Tablet Extended Release 24 Hour 04/29/2023 Provider: MARTA HARRELL PA-C Diagnosis: Essential (prima ry) hypertension TAKE 1 TABLET BY MOUTH EVERY DAY Last Documented On 3 8:35AM By Marta Storey PA-C ; [facility] Xanax 0.25 MG Oral Tablet 10/24/2022 Provider: Diagnosis: Bianca [facility] at [place] Last Documented On 2 9:53AM By Marta Storey PA-C ; [facility] hydrOXYzine HCl 25 MG Oral Tablet 10/24/2022 Provide r: Diagnosis: Bianca [facility] [place] Last Documented On 2 9:54AM By Marta Storey PA-C ; [facility] Medications Administered Includes: Administered [...] 97 Last Documented: On 11/14/2023 2:37PM ; [facility] Results Includes: Results discussed during [...] 08/20/2023 Last Documented On 4 2:33PM ; [facility] Food and nutrition-related knowledge def icit 08/20/2023 Last Documented On 4 2:33PM ; [facility] Inappropriate diet and eating habits Last Documented On 4 2:33PM ; [facility] Alcohol --seldom 03/20/2022 Last Documented On 4 2:33PM ; [facility] Drug use --THC 2x/wks 03/20/2022 Last Documented On 4 2:33PM ; [facility] Smoking status : Current everyday smoker 1/2 ppd 03/20/2022 Last Documented On 4 2:33PM ; [facility] Current smoker 12/11/2021 Last Documented On 4 2:33PM ; [facility] Smoker 07/25/2020 Last Documented On 4 2:33PM ; [facility] Social history unchanged 10/24/2015 Last Documented On 4 2:33PM ; [facility] Currently 08/22/2015 Last Documented On 4 2:33PM ; [facility] Tobacco use 08/22/2015 Last Documented On 4 2:33PM ; [facility] Procedures and Surgical History Includes: Procedures from this encounter Procedures Code Diagnosis Performing Provider Service L ocation Service Date intervention and counseling on cessation of tobacco use 4000F Last Documented On 4 2:37PM ; [facility] use of tobacco assessment performed 1000F Last Documented On 4 2:37PM ; [facility] review of medications documented 1160F Last Documented On 4 2:37PM ; [facility] Medical History Includes: Medical History addressed during this encounter Description Last Updated LMP: 200110/08/2022 Last Documented On 4 2:33PM ; [facility] No recent change in medical history 09/28 Last Documented On 4 2:33PM ; [facility] Family History Includes: Family History addressed during this encounter Description Last Updated Family history unchanged 10/24/2015 Last Documented On 4 2:33PM ; [facility] Review of Systems Includes: Review of [...] Time Diagnosis CHECK UP MARTA STOREY PA-C [facility]- 11/14/19 24 2:30PM 3:19PM Primary Insomnia,Essenti al Hypertension Benign Insurance Includes: Active Insurance Policies Plan Name Member ID Group # Subscriber Relationship Effect sandie Dates 1 - [employer] [id number] RK [id number] Self Clinical Notes Includes: Clinical Notes from this encounter * Progress note Date Encounter Last Documented by 11/14/2023 CHECK UP Last documented on 11/14/2023; 3:42 PM, MARTA STOREY PA-C; [facility] Active Problems & Conditions [...] 25 MG Oral Tablet Bianca Angel at [place], 0 days, 0 refills - Metoprolol Succinate ER 50 MG Oral Tablet Extended Release 24 Hour TAKE 1 TABLET BY MOUTH EVERY DAY, 30 days, 11 refills - Omeprazole 20 MG Oral Capsule Delayed Release TAKE 1 CAPSULE BY MOUTH EVERY DAY, 30 days, 5 refills - Xanax 0.25 MG Oral Tablet One tablet twice a day Bianca Angel at [place], 0 days, 0 refills - Zolpidem Tartrate [...]
--- OUTSIDE RECORDS SUMMARY | 2025-01-02 12:21 | XMS_ITS | Clinical Summary ---
Author Organization [facility] Address [address] [place] [address] Phone Care Team Providers Care Steel Finisher Name Role Phone JAIME SNIDER MD Primary Care Provider [phone] Reason for Visit and Chief Complaint The Chief Complaint is: Obesity Problems Includes: Problems addressed during this encounter and other active Problems Current Visit Onset Date Resolved Date Provider Conditio n Status Tobacco Use 06/21/2020 02/05/2023 MARTA STOREY PA-C R esolved Last Documented On 3 9:44AM ; [facility] Tobacco Use 05/05/2017 KIRT LARSON MD [place] ctive Last Documented On 9 5:29PM ; [facility] Tobacco Use 03/01/2016 KIRT LARSON MD Act sandie Last Documented On 7 8:54AM ; [facility] Past Visits Onset Date Resolved Date Provider Condition Status Esophagitis Chronic Reflux 02/14/2024 MARTA STOREY PA-C Active Last Documented On 02/14/2024 8:55AM ; [facility] Note: Unchanged Allergic Rhinitis 02/14/2024 MARTA STOREY PA-C Active Last Documented On 02/14/2024 8:55AM ; [facility] Note: Unchanged Hyperlipidemia 03/20/2022 THANH SAEED PA-C Active Last Documented On 2 5:01PM ; [facility] Bipolar Disorder Nos 07/01/2020 KIRT BLAIR MD Active Last Documented On 0 9:25AM ; [facility] Opioid Use - Uncomplicated 12/18/2019 KIRT HYMAN MD Active Last Documented On 0 3:16PM ; [facility] Cervicalgia 09/27/2019 KIRT LARSON MD Act sandie Last Documented On 9 10:46PM ; [facility] Chronic Daily Headache 11/12/2018 KIRT MCCLOUD MD Active Last Documented On 9 7:27PM ; [facility] Arthralgia Knee / Patella / Tibia / Fibula 09/01/2017 KIRT LARSON MD Active Last Documented On 7 5:29PM ; [facility] Essential Hypertension Benign 05/25/2016 KIRT LARSON MD Active Last Documented On 6 11:45AM ; [facility] Chronic Bronchitis - Simple 05/25/2016 KIRT LARSON MD Active Last Documented On 7 8:53AM ; [facility] Sleep Disorder Circadian Rhy thm, Shift Work Type 03/01/2016 KIRT LARSON MD Active Last Documented On 6 10:28AM ; [facility] Adjustment Disorder with Anxiety 10/24/2015 RAZA LARSON MD Active Last Documented On 6 10:29AM ; [facility] Primary Insomnia 10/24/2015 KIRT Muniz Active Last Documented On 6 10:28AM ; [facility] Sciatica Right Sided 10/24/2015 KIRT BLAIR MD Active Last Documented On 6 10:29AM ; [facility] Plan of Treatment 1538 Calories Per Day [...] the use of a tracking adelso like [employer], [employer], [employer] or Lose It to track food [...] that grow above ground: Cauliflower, broccoli, cabbage, [place] sprouts, kale, collards, bok renee, spinach, asparagus, zucchini, eggplant, olives, mushrooms, cucumber, avocado (technically a fruit but usually included with vegetables), onions, peppers, tomatoes, lettuce, other kinds of leafy greens, etc. These are lowest in net carbs and can be enjoyed at all levels of carb restriction. Dairy products: Feel free to choose full-fat options like real butter, cream (40% fat), sour cream, [place]araguan yogurt and high-fat cheeses, which can help you enjoy delicious food while losing weight. Be careful with all milk, as it contains a lot of milk sugar. Nuts: Great for a treat (in moderation) instead of popcorn, candy or chips. Berries: Okay in moderation, if you do not need to be super strict with carbs. - Last Documented On 08/20/2023 2:48PM ; [facility] Instructions to patient Intervention and counseling on cessation of tobacco use Last Documented On 3 11:03AM ; [facility] Lose weight Last Documented On 3 11:01AM ; [facility] Education and Decision Aids were provided during visit for: Patient education about diet anshu compliance Last Documented On 3 11:01AM ; [facility] Patient education about meal planning Last Documented On 3 11:01AM ; [facility] Education about modifying re cipes Last Documented On 3 11:01AM ; [facility] Education about changing eat ing habits Last Documented On 3 11:01AM ; [facility] Dietary strategies when eati ng out Last Documented On 3 11:01AM ; [facility] Education about reading food labels Last Documented On 3 11:01AM ; [facility] Patient education about a sp ecial diet Low Carbohydrate Macronutrient Controlled meal plan 3 meals daily with 2 snacks Last Documented On 3 11:01AM ; [facility] Patient education about low carbohydrate diet with portion control and macronutrition Last Documented On 3 11:01AM ; [facility] Educational literature on di et given Last Documented On 3 11:01AM ; [facility] Education, guidance, and cou nseling about dietary management Last Documented On 3 11:01AM ; [facility] Assessments Includes: Assessments from this encounter Findings - [E66.01 - Morbid (severe) obesity due to excess calories] Obesity - Last Documented On 08/20/2023 2:48PM ; [facility] Instructions Includes: Instructions from this encounter Instructions to patient Intervention and counseling on cessation of tobacco use Last Documented On 3 11:03AM ; [facility] Lose weight Last Documented On 3 11:01AM ; [facility] Education and Decision Aids were provided during visit for: Patient education about diet anshu compliance Last Documented On 3 11:01AM ; [facility] Patient education about meal planning Last Documented On 3 11:01AM ; [facility] Education about modifying re cipes Last Documented On 3 11:01AM ; [facility] Education about changing eat ing habits Last Documented On 3 11:01AM ; [facility] Dietary strategies when eati ng out Last Documented On 3 11:01AM ; [facility] Education about reading food labels Last Documented On 3 11:01AM ; [facility] Patient education about a sp ecial diet Low Carbohydrate Macronutrient Controlled meal plan 3 meals daily with 2 snacks Last Documented On 3 11:01AM ; [facility] Patient education about low carbohydrate diet with portion control and macronutrition Last Documented On 3 11:01AM ; [facility] Educational literature on di et given Last Documented On 3 11:01AM ; [facility] Education, guidance, and cou nseling about dietary management Last Documented On 3 11:01AM ; [facility] Medical Equipment - Implanted Devices Includes: Current Devices No Medical Equipment Recorded Medications Includes: Medications discussed during this encounter and other current Medications Discontinued / Stopped on this date MARTA STOREY PA-C on 05/28/2023 traMADol HCl 50 MG Oral Tablet Provider: MARTA Soto Diagnosis: Lumbago with sci atica, right side Last Documented On 08/20/2023 11:06AM By Yifan MYERS ; [facility] Vyleesi 1.75 MG/0.3ML Subcut aneous Solution Auto-injector Provider: MARTA STOREY PA-C Diagnosis: Last Documented On 08/20/2023 11:06AM By Yifan MYERS ; [facility] Armodafinil 250 MG Oral Tablet Provider: Diagnosis: Last Documented On 08/20/2023 11:05AM By Yifan MYERS ; [facility] Anoro Ellipta 62.5-25 MCG/INH Inhalation Aerosol Powder Breath Activated Provider: KIRT Bermeo MD Diagnosis: Simple chronic b ronchitis Last Documented On 08/20/2023 11:05AM By Yifan MYERS ; [facility] Current Medications (continue as prescribed) Zolpidem Tartrate 10 MG Oral Tablet 04/10/2024 Provider: MARTA Soto Diagnosis: Primary insomnia TAKE 1 TABLET BY MOUTH EVERYDAY AT BEDTIME Last Documented On 4 11:00AM By Marta Storey PA-C ; [facility] Atorvastatin Calcium 20 MG Oral Tablet 04/02/2024 Provider: MARTA Stoo Diagnosis: Mixed hyperlipid emia TAKE 1 TABLET BY MOUTH EVERY DAY Last Documented On 4 8:24AM By Marta Storey PA-C ; [facility] Omeprazole 20 MG Oral Capsule Delayed Release 02/14/2024 Provider: MARTA Berrios PA-C Diagnosis: Gastro-esophagea l reflux dis with esophagitis, without bleed TAKE 1 CAPSULE BY MOUTH EVERY DAY Last Documented On 4 8:57AM By Marta Storey PA-C ; [facility] Atorvastatin Calcium 40 MG Oral Tablet 02/14/2024 Provider: MARTA STOREY PA-C Diagnosis: Hyperlipidemia, unspecified One tablet at bed time Last Documented On 4 8:57AM By Marta Storey PA-C ; [facility] Montelukast Sodium 10 MG Oral Tablet 02/14/2024 Provider: MARTA Soto Diagnosis: Allergic rhiniti s, unspecified One tablet daily Last Documented On 4 8:57AM By Marta Storey PA-C ; [facility] Rybelsus 3 MG Oral Tablet 02/14/2024 Provider: TOMMY STOREY PA-C Diagnosis: Morbid (severe) obesity due to excess calories 1 tab daily Last Documented On 4 9:28AM By Marta Storey PA-C ; [facility] Ubrelvy 100 MG Oral Tablet 02/14/2024 Provider: MARTA Soto Diagnosis: Morbid (severe) obesity due to excess calories take 1 tab at onset of heada melly. repeat after 2 hours if needed Last Documented On 4 9:28AM By Marta Storey PA-C ; [facility] Ubrelvy 100 MG Oral Tablet 11/14/2023 Provider: MARTA Soto Diagnosis: Migraine w/o aur a, intractable, without status migrainosus take 1 tab at onset of migra ine. may repeat in 2 hours. max 2 tabs in 24 hours Last Documented On 4 3:43PM By Marta Storey PA-C ; [facility] Metoprolol Succinate ER 50 MG Oral Tablet Extended Release 24 Hour 04/29/2023 Provider: MARTA HARRELL PA-C Diagnosis: Essential (prima ry) hypertension TAKE 1 TABLET BY MOUTH EVERY DAY Last Documented On 3 8:35AM By Marta Storey PA-C ; [facility] Xanax 0.25 MG Oral Tablet 10/24/2022 Provider: Diagnosis: Bian[facility] Last Documented On 2 9:53AM By Marta Storey PA-C ; [facility] hydrOXYzine HCl 25 MG Oral Tablet 10/24/2022 Provide r: Diagnosis: Bianca Angel [facility] Last Documented On 2 9:54AM By Marta Storey PA-C ; [facility] Medications Administered Includes: Administered [...] Last Documented: On 08/20/2023 11:02A M ; [facility] Results Includes: Results discussed [...] to help you reach your goals? 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 Drug use --THC 2x/wks 03/20/2022 Last Documented On 3 11:01AM ; [facility] Smoking status : Current everyday smoker 1/2 ppd 03/20/2022 Last Documented On 3 11:01AM ; [facility] Current smoker 12/11/2021 Last Documented On 3 11:01AM ; [facility] Good exercise habits 10/24/2020 Last Documented On 3 11:01AM ; [facility] No caffeine use 10/24/2020 Last Documented On 3 11:01AM ; [facility] No family problems 10/24/2020 Last Documented On 3 11:01AM ; [facility] No interpersonal problems 10/24/2020 Last Documented On 3 11:01AM ; [facility] No job change 10/24/2020 Last Documented On 3 11:01AM ; [facility] No recent financial changes 10/24/2020 Last Documented On 3 11:01AM ; [facility] No recent legal problems 10/24/2020 Last Documented On 3 11:01AM ; [facility] No work-related circumstances 10/24/2020 Last Documented On 3 11:01AM ; [facility] Not using alcohol 10/24/2020 Last Documented On 3 11:01AM ; [facility] Smoker 07/25/2020 Last Documented On 3 11:01AM ; [facility] Social history unchanged 10/24/2015 Last Documented On 3 11:01AM ; [facility] Currently 08/22/2015 Last Documented On 3 11:01AM ; [facility] Tobacco use 08/22/2015 Last Documented On 3 11:01AM ; [facility] Procedures and Surgical History Includes: Procedures from this encounter Procedures Code Diagnosis Performing Provider Service Location Service Date controlled carbohydrate diet and macronutritionally focused protion control Last Documented On 3 11:01AM ; [facility] medical nutrition therapy Last Documented On 3 11:01AM ; [facility] medical nutrition therapy, i nitial assessment and intervention, each 15 minutes [id number] Last Documented On 3 11:01AM ; [facility] plan of care reviewed and agreed to by t silvestre patient Last Documented On 3 11:01AM ; 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 food diary Last Documented On 3 11:01AM ; [facility] use of tobacco assessment performed 1000F Last Documented On 3 11:01AM ; [facility] patient screened for future fall risk 3288F Last Documented On 3 11:01AM ; [facility] review of medications documented 1160F Last Documented On 3 11:01AM ; [facility] counseling about safety issues Last Documented On 3 11:01AM ; [facility] assessment of substance use performed Last Documented On 3 11:01AM ; [facility] follow-up visit in one month Last Documented On 3 11:01AM ; [facility] recommended change in carbohydrate intak e Last Documented On 3 11:01AM ; [facility] encouragement to exercise Last Documented On 3 11:01AM ; [facility] screening for safety concerns Last Documented On 3 11:01AM ; [facility] MNT, subsequent treatment fo r change in diagnosis, individual, [id number], each 15 minutes Last Documented On 3 11:01AM ; [facility] weight management program Last Documented On 3 11:01AM ; [facility] weight reduction regimen Last Documented On 3 11:01AM ; [facility] actions to lose weight Last Documented On 3 11:01AM ; [facility] carbohydrate counting Last Documented On 3 11:01AM ; [facility] exercising to lose weight Last Documented On 3 11:01AM ; [facility] restricting food intake Last Documented On 3 11:01AM ; [facility] Urged Exercise and Diet 5 da ys weekly for 30 minutes each day for a total of 150 minutes per week Last Documented On 3 11:01AM ; [facility] Carbohydrate counting: Low C arbohydrate Macronutrient Controlled meal plan 3 meals daily with 2 snacks Last Documented On 3 11:01AM ; [facility] Clinical summary provided to patient Last Documented On 3 11:01AM ; [facility] Medical History Includes: Medical History addressed during this encounter Description Last Updated Not taking medication to lose weight Last Documented On 3 2:48PM ; [facility] LMP: 200110/08/2022 Last Documented On 3 11:01AM ; [facility] No recent change in medical history 09/28 Last Documented On 3 11:01AM ; [facility] No reported medical history or no signif icant history 08/22/2015 Last Documented On 3 11:01AM ; [facility] Family History Includes: Family History addressed [...] CONSULT PRISCILLA CHENEY WEIGHT MANAGEMENT-INI RUDY GE-C [facility]- 08/20/20 23 10:35AM 11:54AM Obesity Insurance Includes: Active Insurance Policies Plan Name Member ID Group # Subscriber Relationship Effect sandie Dates - [id number] Self Clinical Notes Includes: Clinical Notes from this encounter * Progress note Date Encounter Last Documented by 08/20/2023 CONSULT PRISCILLA CHENEY WEIG HT MANAGEMENT-INITIAL Last documented on 08/20/2023; 2:48 PM, MESHA ASCENCIO; [facility] Active Problems & Conditions [...] to help you reach your goals? 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 Functional: No physical disability Works at [employer] in . Allergies - No Known Allergies [...] subsequent treatment for change in diagnosis individual, [id number], each 15 minutes, weight management program reduction [...] the use of a tracking adelso like [employer], [employer], [employer] or [employer] It to track food and [...] that grow above ground: Cauliflower, broccoli, cabbage, [place] sprouts, kale, collards, bok renee, spinach, asparagus, zucchini, eggplant, olives, mushrooms, cucumber, avocado (technically a fruit but usually included with vegetables), onions, peppers, tomatoes, lettuce, other kinds of leafy greens, etc. These are lowest in net carbs and can be enjoyed at all levels of carb restriction. Dairy products: Feel free to choose full-fat options like real butter, cream (40% fat), sour cream, [place]araguan yogurt and high-fat cheeses, which can help [...]
--- OUTSIDE RECORDS SUMMARY | 2025-01-02 12:21 | XMS_ITS | Clinical Summary ---
Author Organization [facility] Address [address] [place] [address] Phone Care Team Providers Care Claim Investigator Name Role Phone JAIME SNIDER MD Primary Care Provider [phone] Reason for Visit and Chief Complaint [Patient Encounter] Problems Includes: Problems addressed during this encounter and other active Problems All Visits Onset Date Resolved Date Provider Condition S tatus Esophagitis Chronic Reflux 02/14/2024 ELOISA STOREY PA-C Active Last Documented On 02/14/2024 8:55AM ; [facility] Note: Unchanged Allergic Rhinitis 02/14/2024 ELOISA STOREY PA-C Active Last Documented On 02/14/2024 8:55AM ; [facility] Note: Unchanged Hyperlipidemia 03/20/2022 THANH SAEED PA-C Active Last Documented On 2 5:01PM ; [facility] Bipolar Disorder Nos 07/01/2020 KIRT BLAIR MD Active Last Documented On 0 9:25AM ; [facility] Opioid Use - Uncomplicated 12/18/2019 KIRT HYMAN MD Active Last Documented On 0 3:16PM ; [facility] Cervicalgia 09/27/2019 KIRT LARSON MD Act sandie Last Documented On 9 10:46PM ; [facility] Chronic Daily Headache 11/12/2018 KIRT MCCLOUD MD Active Last Documented On 9 7:27PM ; [facility] Arthralgia Knee / Patella / Tibia / Fibula 09/01/2017 KIRT LARSON MD Active Last Documented On 7 5:29PM ; [facility] Essential Hypertension Benign 05/25/2016 KIRT LARSON MD Active Last Documented On 6 11:45AM ; [facility] Chronic Bronchitis - Simple 05/25/2016 KIRT LARSON MD Active Last Documented On 7 8:53AM ; [facility] Sleep Disorder Circadian Rhy thm, Shift Work Type 03/01/2016 KIRT LARSON MD Active Last Documented On 6 10:28AM ; [facility] Tobacco Use 03/01/2016 KIRT LARSON MD Act sandie Last Documented On 7 8:54AM ; [facility] Adjustment Disorder with Anxiety 10/24/2015 RAZA LARSON MD Active Last Documented On 6 10:29AM ; [facility] Primary Insomnia 10/24/2015 KIRT Muniz Active Last Documented On 6 10:28AM ; [facility] Sciatica Right Sided 10/24/2015 KIRT BLAIR MD Active Last Documented On 6 10:29AM ; [facility] Plan of Treatment No Plan of Treatment [...] 4 11:00AM By Eloisa Storey PA-C ; [facility] Atorvastatin Calcium 20 MG Oral Tablet 04/02/2024 Provider: ELOISA Soto Diagnosis: Mixed hyperlipid emia TAKE 1 TABLET BY MOUTH EVERY DAY Last Documented On 4 8:24AM By Eloisa Storey PA-C ; [facility] Omeprazole 20 MG Oral Capsule Delayed Release 02/14/2024 Provider: ELOISA Berrios PA-C Diagnosis: Gastro-esophagea l reflux dis with esophagitis, without bleed TAKE 1 CAPSULE BY MOUTH EVERY DAY Last Documented On 4 8:57AM By Eloisa Storey PA-C ; [facility] Atorvastatin Calcium 40 MG Oral Tablet 02/14/2024 Provider: ELOISA STOREY PA-C Diagnosis: Hyperlipidemia, unspecified One tablet at bed time Last Documented On 4 8:57AM By Eloisa Storey PA-C ; [facility] Montelukast Sodium 10 MG Oral Tablet 02/14/2024 Provider: ELOISA Soto Diagnosis: Allergic rhiniti s, unspecified One tablet daily Last Documented On 4 8:57AM By Eloisa Storey PA-C ; [facility] Rybelsus 3 MG Oral Tablet 02/14/2024 Provider: TOMMY STOREY PA-C Diagnosis: Morbid (severe) obesity due to excess calories 1 tab daily Last Documented On 4 9:28AM By Eloisa Storey PA-C ; [facility] Ubrelvy 100 MG Oral Tablet 02/14/2024 Provider: ELOISA Soto Diagnosis: Morbid (severe) obesity due to excess calories take 1 tab at onset of heada melly. repeat after 2 hours if needed Last Documented On 4 9:28AM By Eloisa Storey PA-C ; [facility] Ubrelvy 100 MG Oral Tablet 11/14/2023 Provider: ELOISA Soto Diagnosis: Migraine w/o aur a, intractable, without status migrainosus take 1 tab at onset of migra ine. may repeat in 2 hours. max 2 tabs in 24 hours Last Documented On 4 3:43PM By Eloisa Storey PA-C ; [facility] Metoprolol Succinate ER 50 MG Oral Tablet Extended Release 24 Hour 04/29/2023 Provider: ELOISA HARRELL PA-C Diagnosis: Essential (prima ry) hypertension TAKE 1 TABLET BY MOUTH EVERY DAY Last Documented On 3 8:35AM By Eloisa Storey PA-C ; [facility] Xanax 0.25 MG Oral Tablet 10/24/2022 Provider: Diagnosis: Bianca Angel at [place] Last Documented On 2 9:53AM By Eloisa Storey PA-C ; [facility] hydrOXYzine HCl 25 MG Oral Tablet 10/24/2022 Provide r: Diagnosis: Bianca Angel at [place] Last Documented On 2 9:54AM By Eloisa Storey PA-C ; [facility] Medications Administered Includes: Administered Medications [...] Relationship Effect sandie Dates 1 - [employer] [id number] RK Peters NULL Self Clinical Notes Includes: Clinical Notes from this encounter No Clinical Notes Recorded
--- OUTSIDE RECORDS SUMMARY | 2025-01-02 12:21 | XMS_ITS ---
Care Plan - [facility] Created on: January 02, 2025 RK LEDEZMA : 1975 Sex: Female Author Organization [facility] Address [address] [place] [address] Phone Care Team Providers Care Color Control Operator Name Role Phone AGATHA ANDRADE, JAIME Dorado Primary Care Provider [phone]
--- OUTSIDE RECORDS SUMMARY | 2025-01-02 12:22 | XMS_ITS ---
Author Organization [facility] Address [address] [place] [address] Phone Care Team Providers Care Public Relations Writer Name Role Phone JAIME SNIDER MD Primary Care Provider [phone] Reason for Referral Date Encounter Description Provider Reason for Referral 06/01/16 EMERGENCY ROOM FOLLOW UP KIRT Bermeo MD Request Consultation By Specialist Problems Includes: Active, inactive, and resolved Problems All Visits Onset Date Resolved Date Provider Condition S tatus Esophagitis Chronic Reflux 02/14/2024 MARTA STOREY PA-C Active Last Documented On 02/14/2024 8:55AM ; [facility] Note: Unchanged Allergic Rhinitis 02/14/2024 MARTA STOREY PA-C Active Last Documented On 02/14/2024 8:55AM ; [facility] Note: Unchanged Hyperlipidemia 03/20/2022 THANH Estrada JENK INS PA-C Active Last Documented On 2 5:01PM ; [facility] Bipolar Disorder Nos 07/01/2020 KIRT BLAIR MD Active Last Documented On 0 9:25AM ; [facility] Tobacco Use 06/21/2020 02/05/2023 MARTA STOREY PA-C R esolved Last Documented On 3 9:44AM ; [facility] Diffuse Abdominal Pain 03/29/2020 MARTA ORO PA-C Inactive Last Documented On 2 7:17PM ; [facility] Opioid Use - Uncomplicated 12/18/2019 KIRT HYMAN MD Active Last Documented On 0 3:16PM ; [facility] Cervicalgia 09/27/2019 KIRT LARSON MD Act sandie Last Documented On 9 10:46PM ; [facility] Essential Hypertension Benign 09/27/2019 ANILA STOREY PA-C Inactive Last Documented On 2 7:17PM ; [facility] Strain Muscle, Fascia, and T endon of Abdomen 11/25/2018 MARTA STOREY PA-C Inactive Last Documented On 2 7:18PM ; [facility] Chronic Daily Headache 11/12/2018 KIRT MCCLOUD MD Active Last Documented On 9 7:27PM ; [facility] Arthralgia - Knee / Patella / Tibia / Fibula Left 05/07/2018 MARTA STOREY PA-C Inactive Last Documented On 2 7:17PM ; [facility] Low back pain 09/26/2017 KIRT LARSON MD I nactive Last Documented On 9 5:29PM ; [facility] Edema, unspecified 09/01/2017 KIRT LARSON MD Inactive Last Documented On 9 5:29PM ; [facility] Arthralgia Knee / Patella / Tibia / Fibula 09/01/2017 KIRT LARSON MD Active Last Documented On 7 5:29PM ; [facility] Chalazion left lower eyelid 08/19/2017 Unknown KIRT LARSON MD Resolved Last Documented On 9 5:29PM ; [facility] Eustachian Tube Dysfunction Both Ears 05/05/2017 KIRT LARSON MD Inactive Last Documented On 9 5:29PM ; [facility] Lower Back Pain 05/05/2017 KIRT LARSON MD Inactive Last Documented On 9 5:28PM ; [facility] Nausea with Vomiting 05/05/2017 KIRT BLAIR MD Inactive Last Documented On 9 5:29PM ; [facility] Tobacco Use 05/05/2017 KIRT LARSON MD [place] ctive Last Documented On 9 5:29PM ; [facility] Sleep Disorder Circadian Rhy thm, Shift Work Type 02/18/2017 KIRT LARSON MD Inactive Last Documented On 7 8:54AM ; [facility] Adjustment disorder with anxiety 02/01/2017 RAZA LARSON MD Inactive Last Documented On 7 8:53AM ; [facility] Lower Back Pain 02/01/2017 KIRT LARSON MD Inactive Last Documented On 9 5:30PM ; [facility] Nausea with Vomiting 09/05/2016 KIRT BLAIR MD Inactive Last Documented On 7 8:53AM ; [facility] Gastroenteritis Infectious 08/23/2016 KIRT HYMAN MD Inactive Last Documented On 7 8:53AM ; [facility] Streptococcal pharyngitis 08/23/2016 KIRT LANDRY MD Inactive Last Documented On 7 8:54AM ; [facility] Essential Hypertension Benign 05/25/2016 KIRT LARSON MD Active Last Documented On 6 11:45AM ; [facility] Chronic Bronchitis - Simple 05/25/2016 KIRT LARSON MD Active Last Documented On 7 8:53AM ; [facility] Acute maxillary sinusitis, unspecified 03/01/2016 KIRT LARSON MD Inactive Last Documented On 7 8:53AM ; [facility] Sleep Disorder Circadian Rhy thm, Shift Work Type 03/01/2016 KIRT LARSON MD Active Last Documented On 6 10:28AM ; [facility] Tobacco Use 03/01/2016 KIRT LARSON MD Act sandie Last Documented On 7 8:54AM ; [facility] Overweight 03/01/2016 KIRT LARSON MD Inac tive Last Documented On 9 5:29PM ; [facility] Pharyngitis Acute 12/14/2015 KIRT LARSON MD Inactive Last Documented On 7 8:53AM ; [facility] Acute bronchitis, unspecified 10/24/2015 KIRT LARSON MD Inactive Last Documented On 6 11:45AM ; [facility] Adjustment Disorder with Anxiety 10/24/2015 RAZA LARSON MD Active Last Documented On 6 10:29AM ; [facility] Primary Insomnia 10/24/2015 KIRT Muniz Active Last Documented On 6 10:28AM ; [facility] Sciatica Right Sided 10/24/2015 KIRT BLAIR MD Active Last Documented On 6 10:29AM ; [facility] Plan of Treatment Findings Encounter Date Ordered follow-up visit 6-8 wks Needing to get xrays of back and knees plus fasting labs prior to next visit. Discussed pain management in the future if needed. Can try meloxicam/celebrex again but pt states they didn't work. Offered to get xrays in office while she was here (at 4:15pm) but I have an hour drive and need to work at 6pm. Her work is in [employer]. Discussed meds--too many controlled substances at this time. Will plan to wean down on the xanax over the next several months and try to find another daily med to help control mood. Next Rx will be #50 for 30 days. Daily trazodone to help with anxiety--can also help with sleep (pt states it didn't help with sleep in the past). May need to add buspar to help with more anxiety control. TRIAL ABILIFY (ADD METFORMIN TO COUNTERACT POSSIBLE WEIGHT GAIN???) Discussed weight loss--BMI is overweight and not obese. Pt doesn't want to to try wellbutrin for weight loss and mood. 1 sample trulicity given then will have to work on maintaining. Call sooner if needed. Spent >40min with pt; discussing meds. 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 Also referenced [employer] CHECK UP with THANH GONZALEZ PA-C 03/20/2022 Last Documented On 2 8:53AM ; [facility] Ordered return to the clinic if condition worsens or new symptoms arise CHECK UP with THANH GONZALEZ PA-C 03/20/2022 Last Documented On 2 8:53AM ; [facility] Ordered follow-up visit 3 mo nths order for rapid COVID test CHECK UP with KIRT LARSON MD 07/26/2021 Last Documented On 1 4:38PM ; [facility] Ordered return to the clinic if condition worsens or new symptoms arise CHECK UP with KIRT LARSON MD 07/26/2021 Last Documented On 1 4:38PM ; [facility] PLAN [Use for s.o.a.p. note free text] CHECK UP with KIRT LARSON MD 07/26/2021 Last Documented On 1 4:38PM ; [facility] Ordered follow-up visit 3 mo nth. Plan: [facility]: hydrocodone , Addyi CHECK UP with KIRT LARSON MD 04/25/2021 Last Documented On 4:09PM ; [facility] Ordered return to the clinic if condition worsens or new symptoms arise CHECK UP with KIRT LARSON MD 04/25/2021 Last Documented On 4:09PM ; [facility] PLAN [Use for s.o.a.p. note free text] CHECK UP with KIRT LARSON MD 04/25/2021 Last Documented On 4:09PM ; [facility] Ordered follow-up visit 3 month CHECK UP with BIBI LARSON MD 03/24/2021 Last Documented On 1 4:41PM ; [facility] Ordered return to the clinic if condition worsens or new symptoms arise CHECK UP with KIRT LARSON MD 03/24/2021 Last Documented On 1 4:41PM ; [facility] PLAN [Use for s.o.a.p. note free text] CHECK UP with KIRT LARSON MD 03/24/2021 Last Documented On 4:41PM ; [facility] Ordered follow-up visit 1 mo nth - recheck drug test 3 MONTH CHECK with KIRT LARSON MD 10/24/2020 Last Documented On 1 9:42AM ; [facility] Ordered return to the clinic if condition worsens or new symptoms arise 3 MONTH CHECK with KIRT LARSON MD 10/24/2020 Last Documented On 1 9:42AM ; [facility] PLAN [Use for s.o.a.p. note free text] 3 MONTH CHECK with KIRT LARSON MD 10/24/2020 Last Documented On 1 9:42AM ; [facility] Ordered follow-up visit 3 month 1 MONTH CHECK wi darius LARSON MD 07/25/2020 Last Documented On 0 1:23PM ; [facility] Ordered return to the clinic if condition worsens or new symptoms arise 1 MONTH CHECK with KIRT LARSON MD 07/25/2020 Last Documented On 0 1:23PM ; [facility] PLAN [Use for s.o.a.p. note free text] 1 MONTH CHECK with KIRT LARSON MD 07/25/2020 Last Documented On 0 1:23PM ; [facility] Ordered follow-up visit 3 months MED CHECK with KIRT LARSON MD 06/07/2020 Last Documented On 0 3:23PM ; [facility] Ordered return to the clinic if condition worsens or new symptoms arise MED CHECK with KIRT LARSON MD 06/07/2020 Last Documented On 0 3:23PM ; [facility] PLAN [Use for s.o.a.p. note free text] MED CHECK with KIRT LARSON MD 06/07/2020 Last Documented On 0 3:23PM ; [facility] Ordered follow-up visit 1-2 page PROBLEM VISIT w ricardo LARSON MD 03/11/2020 Last Documented On 0 2:15PM ; [facility] Ordered return to the clinic if condition worsens or new symptoms arise PROBLEM VISIT with KIRT LARSON MD 03/11/2020 Last Documented On 0 2:15PM ; [facility] PLAN [Use for s.o.a.p. note free text] PROBLEM VISIT with KIRT LARSON MD 03/11/2020 Last Documented On 0 2:15PM ; [facility] Ordered follow-up visit 3 month MED CHECK with Aniceto LARSON MD 01/14/2020 Last Documented On 0 5:02PM ; [facility] Ordered return to the clinic if condition worsens or new symptoms arise MED CHECK with KIRT LARSON MD 01/14/2020 Last Documented On 0 5:02PM ; [facility] PLAN [Use for s.o.a.p. note free text] MED CHECK with KIRT LARSON MD 01/14/2020 Last Documented On 0 5:02PM ; [facility] Ordered follow-up visit 3 months PROBLEM VISIT w ith KIRT LARSON MD 12/18/2019 Last Documented On 0 10:28PM ; [facility] Ordered return to the clinic if condition worsens or new symptoms arise PROBLEM VISIT with KIRT LARSON MD 12/18/2019 Last Documented On 0 10:28PM ; [facility] PLAN [Use for s.o.a.p. note free text] PROBLEM VISIT with KIRT LARSON MD 12/18/2019 Last Documented On 0 10:28PM ; [facility] Ordered follow-up visit MED CHECK with KIRT HYMAN MD 09/17/2019 Last Documented On 9 10:46PM ; [facility] Ordered return to the clinic if condition worsens or new symptoms arise MED CHECK with KIRT LARSON MD 09/17/2019 Last Documented On 9 10:46PM ; [facility] PLAN [Use for s.o.a.p. note free text] MED CHECK with KIRT LARSON MD 09/17/2019 Last Documented On 9 10:46PM ; [facility] Ordered follow-up visit 3 months MED CHECK with KIRT LARSON MD 06/18/2019 Last Documented On 9 5:31PM ; [facility] Ordered return to the clinic if condition worsens or new symptoms arise MED CHECK with KIRT LARSON MD 06/18/2019 Last Documented On 9 5:31PM ; [facility] PLAN [Use for s.o.a.p. note free text] MED CHECK with KIRT LARSON MD 06/18/2019 Last Documented On 9 5:31PM ; [facility] Ordered follow-up visit 3 month EMERGENC Y ROOM FOLLOW UP with KIRT LARSON MD 11/25/2018 Last Documented On 9 9:16PM ; [facility] Ordered return to the clinic if condition worsens or new symptoms arise EMERGENCY ROOM FOLLOW UP with KIRT LARSON MD 11/25/2018 Last Documented On 9 9:16PM ; [facility] PLAN [Use for s.o.a.p. note free text] EMERGENCY ROOM FOLLOW UP with KIRT LARSON MD 11/25/2018 Last Documented On 9 9:16PM ; [facility] Ordered follow-up visit 3 months MED CHECK with KIRT LARSON MD 11/12/2018 Last Documented On 9 7:30PM ; [facility] Ordered return to the clinic if condition worsens or new symptoms arise MED CHECK with KIRT LARSON MD 11/12/2018 Last Documented On 9 7:30PM ; [facility] PLAN [Use for s.o.a.p. note free text] MED CHECK with KIRT LARSON MD 11/12/2018 Last Documented On 9 7:30PM ; [facility] Ordered follow-up visit 3 months MED CHECK with KIRT LARSON MD 05/07/2018 Last Documented On 8 7:32PM ; [facility] Ordered return to the clinic if condition worsens or new symptoms arise MED CHECK with KIRT LARSON MD 05/07/2018 Last Documented On 8 7:32PM ; [facility] PLAN [Use for s.o.a.p. note free text] MED CHECK with KIRT LARSON MD 05/07/2018 Last Documented On 8 7:32PM ; [facility] Ordered follow-up visit MED CHECK with KIRT HYMAN MD 01/30/2018 Last Documented On 8 5:20PM ; [facility] Ordered return to the clinic if condition worsens or new symptoms arise MED CHECK with KIRT LARSON MD 01/30/2018 Last Documented On 8 5:20PM ; [facility] PLAN [Use for s.o.a.p. note free text] MED CHECK with KIRT LARSON MD 01/30/2018 Last Documented On 8 5:20PM ; [facility] Ordered follow-up visit 1 month CHECK UP with BIBI LARSON MD 09/09/2017 Last Documented On 7 8:36PM ; [facility] Ordered return to the clinic if condition worsens or new symptoms arise CHECK UP with KIRT LARSON MD 09/09/2017 Last Documented On 7 8:36PM ; [facility] Ordered follow-up visit 3 months MED CHECK with KIRT LARSON MD 08/19/2017 Last Documented On 7 5:30PM ; [facility] Ordered return to the clinic if condition worsens or new symptoms arise MED CHECK with KIRT LARSON MD 08/19/2017 Last Documented On 7 5:30PM ; [facility] Ordered follow-up visit 3 months GENERAL OFFICE VISIT with KIRT LARSON MD 04/23/2017 Last Documented On 7 4:59PM ; [facility] Ordered return to the clinic if condition worsens or new symptoms arise GENERAL OFFICE VISIT with KIRT LARSON MD 04/23/2017 Last Documented On 7 4:59PM ; [facility] PLAN [Use for s.o.a.p. note free text] GENERAL OFFICE VISIT with KIRT LARSON MD 04/23/2017 Last Documented On 7 4:59PM ; [facility] Ordered follow-up visit 1 month MED CHECK with Aniceto LARSON MD 02/18/2017 Last Documented On 7 7:02PM ; [facility] Ordered return to the clinic if condition worsens or new symptoms arise MED CHECK with KIRT LARSON MD 02/18/2017 Last Documented On 7 7:02PM ; [facility] PLAN [Use for s.o.a.p. note free text] MED CHECK with KIRT LARSON MD 02/18/2017 Last Documented On 7 7:02PM ; [facility] Ordered follow-up visit MED CHECK with KIRT HYMAN MD 02/01/2017 Last Documented On 7 5:40PM ; [facility] Ordered return to the clinic if condition worsens or new symptoms arise MED CHECK with KIRT LARSON MD 02/01/2017 Last Documented On 7 5:40PM ; [facility] PLAN [Use for s.o.a.p. note free text] MED CHECK with KIRT LARSON MD 02/01/2017 Last Documented On 7 5:40PM ; [facility] Ordered follow-up visit 1-3 months 3 MONTH CHECK with KIRT LARSON MD 08/23/2016 Last Documented On 6 10:32AM ; [facility] Ordered return to the clinic if condition worsens or new symptoms arise 3 MONTH CHECK with KIRT LARSON MD 08/23/2016 Last Documented On 6 10:32AM ; [facility] PLAN [Use for s.o.a.p. note free text] 3 MONTH CHECK with KIRT LARSON MD 08/23/2016 Last Documented On 6 10:32AM ; [facility] Ordered follow-up visit 1-3 months GENER AL OFFICE VISIT with KIRT LARSON MD 08/01/2016 Last Documented On 6 11:47AM ; [facility] Ordered return to the clinic if condition worsens or new symptoms arise GENERAL OFFICE VISIT with KIRT LARSON MD 08/01/2016 Last Documented On 6 11:47AM ; [facility] PLAN [Use for s.o.a.p. note free text] GENERAL OFFICE VISIT with KIRT LARSON MD 08/01/2016 Last Documented On 6 11:47AM ; [facility] Referral to psychiatry. Rashmi Lopez. Decrease gabapentin twice a day EMERGENCY ROOM FOLLOW UP with KIRT LARSON MD 06/01/2016 Last Documented On 6 5:16PM ; [facility] Ordered follow-up visit 1 month EMERGENC Y ROOM FOLLOW UP with KIRT LARSON MD 06/01/2016 Last Documented On 6 5:16PM ; [facility] Ordered return to the clinic if condition worsens or new symptoms arise EMERGENCY ROOM FOLLOW UP with KIRT LARSON MD 06/01/2016 Last Documented On 6 5:16PM ; [facility] Ordered Transition in care, clinical summary provided EMERGENCY ROOM FOLLOW UP with KIRT LARSON MD 06/01/2016 Last Documented On 6 5:16PM ; [facility] PLAN [Use for s.o.a.p. note free text] EMERGENCY ROOM FOLLOW UP with KIRT LARSON MD 06/01/2016 Last Documented On 6 5:16PM ; [facility] Increase gabapentin. Return one month or as needed CHECK UP with KIRT LARSON MD 05/16/2016 Last Documented On 6 4:54PM ; [facility] Ordered follow-up visit 3 months CHECK UP with Aniceto LARSON MD 05/16/2016 Last Documented On 6 4:54PM ; [facility] Ordered return to the clinic if condition worsens or new symptoms arise CHECK UP with KIRT LARSON MD 05/16/2016 Last Documented On 6 4:54PM ; [facility] PLAN [Use for s.o.a.p. note free text] CHECK UP with KIRT LARSON MD 05/16/2016 Last Documented On 6 4:54PM ; [facility] Ordered follow-up visit 1 MONTH CHECK with KIRT LARSON MD 04/04/2016 Last Documented On 6 3:16AM ; [facility] Ordered return to the clinic if condition worsens or new symptoms arise 1 MONTH CHECK with KIRT LARSON MD 04/04/2016 Last Documented On 6 3:16AM ; [facility] PLAN [Use for s.o.a.p. note free text] 1 MONTH CHECK with KIRT LARSON MD 04/04/2016 Last Documented On 6 3:16AM ; [facility] Continue current medications with the following exceptions. Increase Nuvigil to 250 mg daily. Start Remeron 15 mg at bedtime. Start Chantix for smoking cessation. Cipro for sinus infection and patient is to use [id number] Flonase and saline spray. Belviq for weight loss and daily exercise. Patient also given prescription for Belsomra. Increase Xanax 1 mg 3 times a day 1 MONTH CHECK with KIRT LARSON MD 02/29/2016 Last Documented On 6 12:44AM ; [facility] Ordered follow-up visit 1 MONTH CHECK with KIRT LARSON MD 02/29/2016 Last Documented On 6 12:44AM ; [facility] Ordered return to the clinic if condition worsens or new symptoms arise 1 MONTH CHECK with KIRT LARSON MD 02/29/2016 Last Documented On 6 12:44AM ; [facility] PLAN [Use for s.o.a.p. note free text] 1 MONTH CHECK with KIRT LARSON MD 02/29/2016 Last Documented On 6 12:44AM ; [facility] Ordered follow-up visit CHECK UP with KIRT LANDRY MD 01/25/2016 Last Documented On 6 6:12PM ; [facility] Ordered return to the clinic if condition worsens or new symptoms arise CHECK UP with KIRT LARSON MD 01/25/2016 Last Documented On 6 6:12PM ; [facility] PLAN [Use for s.o.a.p. note free text] CHECK UP with KIRT LARSON MD 01/25/2016 Last Documented On 6 6:12PM ; [facility] Refill medications. Followup in 3 months. [id number] Mucinex, saline spray, cough drops, and/ or Sudafed as needed. Patient recommended to stop smoking. MED CHECK with KIRT LARSON MD 12/14/2015 Last Documented On 6 1:13PM ; [facility] Ordered follow-up visit MED CHECK with KIRT HYMAN MD 12/14/2015 Last Documented On 6 1:13PM ; [facility] Ordered return to the clinic if condition worsens or new symptoms arise MED CHECK with KIRT LARSON MD 12/14/2015 Last Documented On 6 1:13PM ; [facility] Ordered follow-up visit 1-3 months MED CHECK wit h KIRT LARSON MD 11/14/2015 Last Documented On 6 3:51PM ; [facility] Ordered return to the clinic if condition worsens or new symptoms arise MED CHECK with KIRT LARSON MD 11/14/2015 Last Documented On 6 3:51PM ; [facility] Ordered analgesics (non-ster oidal anti-inflammatory agents) CHECK UP with KIRT LARSON MD 10/24/2015 Last Documented On 5 12:35PM ; [facility] Ordered follow-up visit CHECK UP with KIRT LANDRY MD 10/24/2015 Last Documented On 5 12:35PM ; [facility] Ordered home range of motion exercises CHECK UP with KIRT LARSON MD 10/24/2015 Last Documented On 5 12:35PM ; [facility] Ordered moist heat CHECK UP with KIRT BLAIR MD 10/24/2015 Last Documented On 5 12:35PM ; [facility] Ordered return to the clinic if condition worsens or new symptoms arise CHECK UP with KIRT LARSON MD 10/24/2015 Last Documented On 5 12:35PM ; [facility] Ordered analgesics (non-ster oidal anti-inflammatory agents) PROBLEM VISIT with KIRT LARSON MD 08/22/2015 Last Documented On 5 5:15PM ; [facility] Ordered follow-up visit PROBLEM VISIT with KIRT LARSON MD 08/22/2015 Last Documented On 5 5:15PM ; [facility] Ordered home range of motion exercises PROBLEM VISIT with KIRT LARSON MD 08/22/2015 Last Documented On 5 5:15PM ; [facility] Ordered moist heat PROBLEM VISIT with KIRT LANDRY MD 08/22/2015 Last Documented On 5 5:15PM ; [facility] Ordered return to the clinic if condition worsens or new symptoms arise PROBLEM VISIT with KIRT LARSON MD 08/22/2015 Last Documented On 5 5:15PM ; [facility] Pending Tests Order Diagnosis Results Due Ordering P rovider Therapy - Physical Therapy Back Lumbago with sciatica, right side 05/29/23 MARTA WHITEC Last Documented On 3 9:35AM ; [facility] Radiology @ [facility] - CT Scan Lumbar Spine CT w/o contrast Lumbago with sciatica, right side 07/27/23 MARTA WHITEC Last Documented On 3 9:43AM ; [facility] Referrals To Diagnosis Psychiatrist VERA FLORES MD Adjustment diso rder with anxiety Last Documented On 7 2:08PM ; [facility] Pain Management [facility] [place] [facility]- Low back pain Last Documented On 9 10:59AM ; [facility] Psychiatrist KIRT LARSON M.D. Adjustmen t disorder with anxiety Note: PT IS WANTING TO GO TO [facility] Last Documented On 9 9:40AM ; [facility] Psychiatrist KIRT LARSON M.D. Adjustmen t disorder with anxiety Note: [facility].Even if patient can't get in for a while to see the psychiatrist, she can start counseling there. 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[employer] Obesity, unspecified Last Documented On 3 2:58PM ; [facility] Diabetic Management COURTNEY MORTENSEN [employer] Obesity, unspecified Note: weight management Last Documented On 3 11:48AM ; [facility] Instructions to patient Intervention and counseling on cessation of tobacco use Last Documented On 4 2:37PM ; [facility] Intervention and counseling on cessation of tobacco use Last Documented On 3 11:03AM ; [facility] Lose weight Last Documented On 3 11:01AM ; [facility] Intervention and counseling on cessation of tobacco use Last Documented On 3 3:56PM ; [facility] Intervention and counseling on cessation of tobacco use Last Documented On 3 3:59PM ; [facility] Intervention and counseling on cessation of tobacco use : Patient recieved smoking cessation handout Last Documented On 2 5:06PM ; [facility] Intervention and counseling on cessation of tobacco use Last Documented On 1 3:27PM ; [facility] Intervention and counseling on cessation of tobacco use : Patient recieved smoking cessation handout Last Documented On 1 3:23PM ; [facility] Watch for signs/symptoms of infection, return to the clinic if seen Last Documented On 6 4:21PM ; [facility] Reduced physical activity Last Documented On 5 5:13PM ; [facility] Education and Decision Aids were provided during visit for: Patient education about diet anshu compliance Last Documented On 3 11:01AM ; [facility] Patient education about meal planning Last Documented On 3 11:01AM ; [facility] Education about modifying re cipes Last Documented On 3 11:01AM ; [facility] Education about changing eat ing habits Last Documented On 3 11:01AM ; [facility] Dietary strategies when eati ng out Last Documented On 3 11:01AM ; [facility] Education about reading food labels Last Documented On 3 11:01AM ; [facility] Patient education about a sp ecial diet Low Carbohydrate Macronutrient Controlled meal plan 3 meals daily with 2 snacks Last Documented On 3 11:01AM ; [facility] Patient education about low carbohydrate diet with portion control and macronutrition Last Documented On 3 11:01AM ; [facility] Educational literature on di et given Last Documented On 3 11:01AM ; [facility] Education, guidance, and cou nseling about dietary management Last Documented On 3 11:01AM ; [facility] Adjustment disorder with anx iety (Problem) Last Documented On 6 3:06PM ; [facility] Assessments Includes: Assessments for all patient encounters Findings Encounter Date Assessment of tobacco use CHECK UP with MARTA STOREY PA-C 02/14/2024 Last Documented On 4 9:28AM ; [facility] Benign essential hypertension CHECK UP with SANDEE STOREY PA-C 02/14/2024 Last Documented On 4 9:28AM ; [facility] Chronic reflux esophagitis CHECK UP with MARTA ANDERSVELY PA-C 02/14/2024 Last Documented On 4 9:28AM ; [facility] Hyperlipidemia CHECK UP with MARTA STOREY PA-C 02/14/2024 Last Documented On 4 9:28AM ; [facility] Simple chronic bronchitis CHECK UP with MARTA STOREY PA-C 02/14/2024 Last Documented On 4 9:28AM ; [facility] Benign essential hypertension CHECK UP with SANDEE ANDERSVELY PA-C 11/14/2023 Last Documented On 4 3:42PM ; [facility] Primary insomnia CHECK UP with MARTA STOREY PA-C 11/14/2023 Last Documented On 4 3:42PM ; [facility] Obesity CONSULT DIAB EP WEIG HT MANAGEMENT-INITIAL with COURTNEY GE-C 08/20/2023 Last Documented On 3 2:48PM ; [facility] Right-sided sciatica EMERGENCY ROOM FOLL OWUP-ESTABLISHED PT with MARTA STOREY PA-C 05/28/2023 Last Documented On 3 9:01AM ; [facility] Adjustment disorder with anxiety CHECK UP with Lorraine STOREY PA-C 01/31/2023 Last Documented On 3 9:49AM ; [facility] Assessment of tobacco use CHECK UP with MARTA STOREY PA-C 01/31/2023 Last Documented On 3 9:49AM ; [facility] Benign essential hypertension CHECK UP with SANDEE ANDERSVELY PA-C 01/31/2023 Last Documented On 3 9:49AM ; [facility] Hyperlipidemia CHECK UP with MARTA ANDERSVELY PA-C 01/31/2023 Last Documented On 3 9:49AM ; [facility] Primary insomnia CHECK UP with MARTA ANDERSVELY PA-C 01/31/2023 Last Documented On 3 9:49AM ; [facility] Adjustment disorder with anxiety CHECK UP with Leigh Ann Dorado GONZALEZ PA-C 03/20/2022 Last Documented On 2 8:53AM ; [facility] Arthralgia of knee / patella / tibia / fibula CHECK UP with THANH E GONZALEZ PA-C 03/20/2022 Last Documented On 2 8:53AM ; [facility] Benign essential hypertension CHECK UP with VICKIE TA Estrada LIRIANOGONZALEZ PA-C 03/20/2022 Last Documented On 2 8:53AM ; [facility] Depression CHECK UP with THANH E GONZALEZ P A-C 03/20/2022 Last Documented On 2 8:53AM ; [facility] Hyperlipidemia CHECK UP with THANH E GONZALEZ P A-C 03/20/2022 Last Documented On 2 8:53AM ; [facility] Overweight CHECK UP with THANH E GONZALEZ P A-C 03/20/2022 Last Documented On 2 8:53AM ; [facility] Primary insomnia CHECK UP with THANH E GONZALEZ PA-C 03/20/2022 Last Documented On 2 8:53AM ; [facility] Right-sided sciatica CHECK UP with THANH E HERIK INS PA-C 03/20/2022 Last Documented On 2 8:53AM ; [facility] [M25.561 - Pain in right kne e] RIGHT KNEE PAIN CHECK UP with MARTA STOREY PA-C 10/31/2021 Last Documented On 2 7:19PM ; [facility] LEFT KNEE PAIN CHECK UP with MARTA STOREY PA-C 10/31/2021 Last Documented On 2 7:19PM ; [facility] Lumbago CHECK UP with MARTA STOREY PA-C 10/31/2021 Last Documented On 2 7:19PM ; [facility] Adjustment disorder with anxiety CHECK UP with Aniceto LARSON MD 07/26/2021 Last Documented On 1 4:38PM ; [facility] Arthralgia of the left knee/patella/tibia/fibula CHECK UP with KIRT LARSON MD 07/26/2021 Last Documented On 1 4:38PM ; [facility] Assessment of tobacco use CHECK UP with KIRT LARSON MD 07/26/2021 Last Documented On 1 4:38PM ; [facility] Benign essential hypertension CHECK UP with MARICHUY LARSON MD 07/26/2021 Last Documented On 1 4:38PM ; [facility] Bipolar disorder NOS CHECK UP with KIRT MCCLOUD MD 07/26/2021 Last Documented On 1 4:38PM ; [facility] Circadian rhythm sleep disor avery, shift work type CHECK UP with KIRT LARSON MD 07/26/2021 Last Documented On 1 4:38PM ; [facility] Opioid use - uncomplicated CHECK UP with KIRT LARSON MD 07/26/2021 Last Documented On 1 4:38PM ; [facility] Primary insomnia CHECK UP with KIRT LARSON MD 07/26/2021 Last Documented On 1 4:38PM ; [facility] Right-sided sciatica CHECK UP with KIRT MCCLOUD MD 07/26/2021 Last Documented On 1 4:38PM ; [facility] Simple chronic bronchitis CHECK UP with KIRT LARSON MD 07/26/2021 Last Documented On 1 4:38PM ; [facility] Adjustment disorder with anxiety CHECK UP with Aniceto LARSON MD 04/25/2021 Last Documented On 1 4:09PM ; [facility] Benign essential hypertension CHECK UP with MARICHUY LARSON MD 04/25/2021 Last Documented On 1 4:09PM ; [facility] Bipolar disorder NOS CHECK UP with KIRT MCCLOUD MD 04/25/2021 Last Documented On 1 4:09PM ; [facility] Cervicalgia CHECK UP with KIRT LARSON MD 04/25/2021 Last Documented On 1 4:09PM ; [facility] Chronic Daily Headache CHECK UP with KIRT BROWN MD 04/25/2021 Last Documented On 1 4:09PM ; [facility] Primary insomnia CHECK UP with KIRT LARSON MD 04/25/2021 Last Documented On 1 4:09PM ; [facility] Simple chronic bronchitis CHECK UP with KIRT LARSON MD 04/25/2021 Last Documented On 1 4:09PM ; [facility] Adjustment disorder with anxiety CHECK UP with Aniceto LARSON MD 03/24/2021 Last Documented On 1 4:41PM ; [facility] Benign essential hypertension CHECK UP with MARICHUY LARSON MD 03/24/2021 Last Documented On 1 4:41PM ; [facility] Benign essential hypertension CHECK UP with MARICHUY LARSON MD 03/24/2021 Last Documented On 1 4:41PM ; [facility] Bipolar disorder NOS CHECK UP with KIRT MCCLOUD MD 03/24/2021 Last Documented On 1 4:41PM ; [facility] Chronic Daily Headache CHECK UP with KIRT BROWN MD 03/24/2021 Last Documented On 4:41PM ; [facility] Opioid use - uncomplicated CHECK UP with KIRT LARSON MD 03/24/2021 Last Documented On 1 4:41PM ; [facility] Primary insomnia CHECK UP with KIRT LARSON MD 03/24/2021 Last Documented On 1 4:41PM ; [facility] Right-sided sciatica CHECK UP with KIRT MCCLOUD MD 03/24/2021 Last Documented On 1 4:41PM ; [facility] Adjustment disorder with anxiety 1 MONTH CHECK w ricardo LARSON MD 11/29/2020 Last Documented On 1 3:40PM ; [facility] Arthralgia of the left knee/patella/tibia/fibula 1 MONTH CHECK with KIRT LARSON MD 11/29/2020 Last Documented On 1 3:40PM ; [facility] Benign essential hypertension 1 MONTH CHECK with KIRT LARSON MD 11/29/2020 Last Documented On 1 3:40PM ; [facility] Chronic Daily Headache 1 MONTH CHECK with KIRT LARSON MD 11/29/2020 Last Documented On 1 3:40PM ; [facility] Circadian rhythm sleep disor avery, shift work type 1 MONTH CHECK with KIRT LARSON MD 11/29/2020 Last Documented On 1 3:40PM ; [facility] Primary insomnia 1 MONTH CHECK with KIRT PRUITT MD 11/29/2020 Last Documented On 1 3:40PM ; [facility] Right-sided sciatica 1 MONTH CHECK with KIRT LARSON MD 11/29/2020 Last Documented On 1 3:40PM ; [facility] Simple chronic bronchitis 1 MONTH CHECK with RAZA LARSON MD 11/29/2020 Last Documented On 1 3:40PM ; [facility] Strain of muscle, fascia, an d tendon of abdomen 1 MONTH CHECK with KIRT LARSON MD 11/29/2020 Last Documented On 1 3:40PM ; [facility] Adjustment disorder with anxiety 3 MONTH CHECK w ricardo LARSON MD 10/24/2020 Last Documented On 1 9:42AM ; [facility] Benign essential hypertension 3 MONTH CHECK with KIRT LARSON MD 10/24/2020 Last Documented On 1 9:42AM ; [facility] Cervicalgia 3 MONTH CHECK with KIRT MCCLOUD MD 10/24/2020 Last Documented On 1 9:42AM ; [facility] Chronic Daily Headache 3 MONTH CHECK with KIRT LARSON MD 10/24/2020 Last Documented On 1 9:42AM ; [facility] Circadian rhythm sleep disor avery, shift work type 3 MONTH CHECK with KIRT LARSON MD 10/24/2020 Last Documented On 1 9:42AM ; [facility] Primary insomnia 3 MONTH CHECK with KIRT PRUITT MD 10/24/2020 Last Documented On 1 9:42AM ; [facility] Simple chronic bronchitis 3 MONTH CHECK with RAZA LARSON MD 10/24/2020 Last Documented On 1 9:42AM ; [facility] Adjustment disorder with anxiety 1 MONTH CHECK w ricardo LARSON MD 07/25/2020 Last Documented On 0 1:23PM ; [facility] Benign essential hypertension 1 MONTH CHECK with KIRT LARSON MD 07/25/2020 Last Documented On 0 1:23PM ; [facility] Adjustment disorder with anx iety -- alprazolam 3 times daily. Can't take SSRIs, SNRIs, Seroquel, Risperdal, Topamax, Depakote MED CHECK with KIRT LARSON MD 06/07/2020 Last Documented On 0 3:23PM ; [facility] Arthralgia of the left knee/patella/tibia/fibula -- hydrocodone one-2 times per week, tramadol one-2 times per week, ibuprofen MED CHECK with KIRT LARSON MD 06/07/2020 Last Documented On 0 3:23PM ; [facility] Assessment of tobacco use MED CHECK with KIRT LARSON MD 06/07/2020 Last Documented On 0 3:23PM ; [facility] Benign essential hypertension -- Ambien MED CHEC K with KIRT LARSON MD 06/07/2020 Last Documented On 0 3:23PM ; [facility] Cervicalgia MED CHECK with KIRT LARSON MD 06/07/2020 Last Documented On 0 3:23PM ; [facility] Circadian rhythm sleep disor avery, shift work type -armodafinil MED CHECK with KIRT LARSON MD 06/07/2020 Last Documented On 0 3:23PM ; [facility] Opioid use - uncomplicated MED CHECK with KIRT LARSON MD 06/07/2020 Last Documented On 0 3:23PM ; [facility] Primary insomnia - Ambien MED CHECK with KIRT LARSON MD 06/07/2020 Last Documented On 0 3:23PM ; [facility] Right-sided sciatica MED CHECK with KIRT PRUITT MD 06/07/2020 Last Documented On 0 3:23PM ; [facility] Simple chronic bronchitis -- Anoro MED CHECK wit h KIRT LARSON MD 06/07/2020 Last Documented On 0 3:23PM ; [facility] Assessment of diffuse abdominal pain PRO BLEM VISIT with KIRT LARSON MD 03/11/2020 Last Documented On 0 2:15PM ; [facility] Adjustment disorder with anxiety MED CHECK with KIRT LARSON MD 01/14/2020 Last Documented On 0 5:02PM ; [facility] Benign essential hypertension MED CHECK with RAZA LARSON MD 01/14/2020 Last Documented On 0 5:02PM ; [facility] Cervicalgia MED CHECK with KIRT LARSON MD 01/14/2020 Last Documented On 0 5:02PM ; [facility] Chronic Daily Headache MED CHECK with KIRT LANDRY MD 01/14/2020 Last Documented On 0 5:02PM ; [facility] Primary insomnia MED CHECK with KIRT Bermeo MD 01/14/2020 Last Documented On 0 5:02PM ; [facility] Simple chronic bronchitis MED CHECK with KIRT LARSON MD 01/14/2020 Last Documented On 0 5:02PM ; [facility] Adjustment disorder with anxiety MED CHECK with KIRT LARSON MD 09/17/2019 Last Documented On 9 10:46PM ; [facility] Arthralgia of the knee / pat jalen / tibia / fibula MED CHECK with KIRT LARSON MD 09/17/2019 Last Documented On 9 10:46PM ; [facility] Cervicalgia MED CHECK with KITR LARSON MD 09/17/2019 Last Documented On 9 10:46PM ; [facility] Primary insomnia MED CHECK with KIRT Bermeo MD 09/17/2019 Last Documented On 9 10:46PM ; [facility] Right-sided sciatica MED CHECK with KIRT PRUITT MD 09/17/2019 Last Documented On 9 10:46PM ; [facility] Simple chronic bronchitis MED CHECK with KIRT LARSON MD 09/17/2019 Last Documented On 9 10:46PM ; [facility] Adjustment disorder with anxiety MED CHECK with KIRT LARSON MD 06/18/2019 Last Documented On 9 5:31PM ; [facility] Arthralgia of the left knee/patella/tibia/fibula MED CHECK with KIRT LARSON MD 06/18/2019 Last Documented On 9 5:31PM ; [facility] Assessment of lower back pain MED CHECK with RAZA LARSON MD 06/18/2019 Last Documented On 9 5:31PM ; [facility] Benign essential hypertension MED CHECK with RAZA LARSON MD 06/18/2019 Last Documented On 9 5:31PM ; [facility] Circadian rhythm sleep disor avery, shift work type MED CHECK with KIRT LARSON MD 06/18/2019 Last Documented On 9 5:31PM ; [facility] Primary insomnia MED CHECK with KIRT Bermeo MD 06/18/2019 Last Documented On 9 5:31PM ; [facility] Right-sided sciatica MED CHECK with KIRT PRUITT MD 06/18/2019 Last Documented On 9 5:31PM ; [facility] Arthralgia of the left ulna/radius/wrist PROBLEM VISIT with PRISCA GE-Carolyne 02/10/2019 Last Documented On 9 9:52AM ; [facility] Arthralgia of the right ulna/radius/wris t PROBLEM VISIT with PRISCA N FIELD CHANNEL LIP WETTER-C 02/10/2019 Last Documented On 9 9:52AM ; [facility] Assessment of lower back pain PROBLEM VISIT with PRISCA N FIELD CHANNEL LIP WETTER-C 02/10/2019 Last Documented On 9 9:52AM ; [facility] Cervicalgia PROBLEM VISIT with PRISCA N SIN CARINE CHANNEL LIP WETTER-C 02/10/2019 Last Documented On 9 9:52AM ; [facility] Concussion with no loss of consciousness PROBLEM VISIT with PRISCA N FIELD CHANNEL LIP WETTER-C 02/10/2019 Last Documented On 9 9:52AM ; [facility] Contusion with intact skin s urface of the right middle finger PROBLEM VISIT with PRISCA N FIELD CHANNEL LIP WETTER-C 02/10/2019 Last Documented On 9 9:52AM ; [facility] Right-sided sciatica PROBLEM VISIT with PRISCA N FIELD CHANNEL LIP WETTER-C 02/10/2019 Last Documented On 9 9:52AM ; [facility] Benign essential hypertension EMERGENCY ROOM FOLLOW UP with KIRT LARSON MD 11/25/2018 Last Documented On 9 9:16PM ; [facility] Strain of muscle, fascia, an d tendon of abdomen EMERGENCY ROOM FOLLOW UP with KIRT LARSON MD 11/25/2018 Last Documented On 9 9:16PM ; [facility] Adjustment disorder with anxiety MED CHECK with KIRT LARSON MD 11/12/2018 Last Documented On 9 7:30PM ; [facility] Chronic Daily Headache MED CHECK with KIRT LANDRY MD 11/12/2018 Last Documented On 9 7:30PM ; [facility] Primary insomnia MED CHECK with KIRT Bermeo MD 11/12/2018 Last Documented On 9 7:30PM ; [facility] Right-sided sciatica MED CHECK with KIRT PRUITT MD 11/12/2018 Last Documented On 9 7:30PM ; [facility] Simple chronic bronchitis MED CHECK with KIRT LARSON MD 11/12/2018 Last Documented On 9 7:30PM ; [facility] Adjustment disorder with anxiety MED CHECK with KIRT LARSON MD 05/07/2018 Last Documented On 8 7:32PM ; [facility] Arthralgia of the left knee/patella/tibia/fibula MED CHECK with KIRT LARSON MD 05/07/2018 Last Documented On 8 7:32PM ; [facility] Assessment of lower back pain MED CHECK with RAZA LARSON MD 05/07/2018 Last Documented On 8 7:32PM ; [facility] Primary insomnia MED CHECK with KIRT Bermeo MD 05/07/2018 Last Documented On 8 7:32PM ; [facility] Circadian rhythm sleep disor avery, shift work type MED CHECK with KIRT LARSON MD 01/30/2018 Last Documented On 8 5:20PM ; [facility] Overweight MED CHECK with KIRT LARSON MD 01/30/2018 Last Documented On 8 5:20PM ; [facility] Primary insomnia MED CHECK with KIRT Bermeo MD 01/30/2018 Last Documented On 8 5:20PM ; [facility] Arthralgia of the knee / pat jalen / tibia / fibula MED CHECK with KIRT LARSON MD 08/19/2017 Last Documented On 7 5:30PM ; [facility] Assessment of lower back pain MED CHECK with RAZA LARSON MD 08/19/2017 Last Documented On 7 5:30PM ; [facility] Benign essential hypertension MED CHECK with RAZA LASRON MD 08/19/2017 Last Documented On 7 5:30PM ; [facility] Circadian rhythm sleep disor avery, shift work type MED CHECK with KIRT LARSON MD 08/19/2017 Last Documented On 7 5:30PM ; [facility] Primary insomnia MED CHECK with KIRT Bermeo MD 08/19/2017 Last Documented On 7 5:30PM ; [facility] Right-sided sciatica MED CHECK with KIRT PRUITT MD 08/19/2017 Last Documented On 7 5:30PM ; [facility] Simple chronic bronchitis MED CHECK with KIRT LARSON MD 08/19/2017 Last Documented On 7 5:30PM ; [facility] Adjustment disorder with anxiety GENERAL OFFICE VISIT with KIRT LARSON MD 04/23/2017 Last Documented On 7 4:59PM ; [facility] Adjustment disorder with anxiety GENERAL OFFICE VISIT with KIRT LARSON MD 04/23/2017 Last Documented On 7 4:59PM ; [facility] Assessment of lower back pain GENERAL OF FICE VISIT with KIRT LARSON MD 04/23/2017 Last Documented On 7 4:59PM ; [facility] Assessment of tobacco use GENERAL OFFICE VISIT w ricardo LARSON MD 04/23/2017 Last Documented On 7 4:59PM ; [facility] Benign essential hypertension GENERAL OF FICE VISIT with KIRT LARSON MD 04/23/2017 Last Documented On 7 4:59PM ; [facility] Benign essential hypertension GENERAL OF FICE VISIT with KIRT LARSON MD 04/23/2017 Last Documented On 7 4:59PM ; [facility] Circadian rhythm sleep disor avery, shift work type GENERAL OFFICE VISIT with KIRT LARSON MD 04/23/2017 Last Documented On 7 4:59PM ; [facility] Circadian rhythm sleep disor avery, shift work type GENERAL OFFICE VISIT with KIRT LARSON MD 04/23/2017 Last Documented On 7 4:59PM ; [facility] Eustachian tube dysfunction of both ears GENERAL OFFICE VISIT with KIRT LARSON MD 04/23/2017 Last Documented On 7 4:59PM ; [facility] Nausea with vomiting GENERAL OFFICE VISIT with Aniceto LARSON MD 04/23/2017 Last Documented On 7 4:59PM ; [facility] Primary insomnia GENERAL OFFICE VISIT with KIRT LARSON MD 04/23/2017 Last Documented On 7 4:59PM ; [facility] Primary insomnia GENERAL OFFICE VISIT with KIRT LARSON MD 04/23/2017 Last Documented On 7 4:59PM ; [facility] Right-sided sciatica GENERAL OFFICE VISIT with Aniceto LARSON MD 04/23/2017 Last Documented On 7 4:59PM ; [facility] Simple chronic bronchitis GENERAL OFFICE VISIT w ricardo LARSON MD 04/23/2017 Last Documented On 7 4:59PM ; [facility] A tremor occurs at rest and during movement, started a couple of days ago PROBLEM VISIT with PRISCA N FIELD CHANNEL LIP WETTER-C 04/17/2017 Last Documented On 7 8:13AM ; [facility] Acute sinusitis PROBLEM VISIT with PRISCA Zari SIN CARINE CHANNEL LIP WETTER-C 04/17/2017 Last Documented On 7 8:13AM ; [facility] Right-sided sciatica PROBLEM VISIT with PRISCA N FIELD CHANNEL LIP WETTER-C 04/17/2017 Last Documented On 7 8:13AM ; [facility] [facility] Carbuncle on the finger(s) o f the left hand * PHONE CALL with PRISCA N FIELD CHANNEL LIP WETTER-C 09/28/2016 Last Documented On 6 12:11PM ; [facility] Assessment of cough PROBLEM VISIT with PRISCA N FIELD CHANNEL LIP WETTER-C 09/26/2016 Last Documented On 6 4:26PM ; [facility] Carbuncle on the finger(s) o f the left hand PROBLEM VISIT with PRISCA N FIELD CHANNEL LIP WETTER-C 09/26/2016 Last Documented On 6 4:26PM ; [facility] Costochondritis PROBLEM VISIT with PRISCA N SIN CARINE CHANNEL LIP WETTER-C 09/26/2016 Last Documented On 6 4:26PM ; [facility] Acute pharyngitis 3 MONTH CHECK with KIRT BROWN MD 08/23/2016 Last Documented On 6 10:32AM ; [facility] Adjustment disorder with anxiety 3 MONTH CHECK w ricardo LARSON MD 08/23/2016 Last Documented On 6 10:32AM ; [facility] Circadian rhythm sleep disor avery, shift work type 3 MONTH CHECK with KIRT LARSON MD 08/23/2016 Last Documented On 6 10:32AM ; [facility] Infectious gastroenteritis 3 MONTH CHECK with BIBI LARSON MD 08/23/2016 Last Documented On 6 10:32AM ; [facility] Nausea with vomiting 3 MONTH CHECK with KIRT LARSON MD 08/23/2016 Last Documented On 6 10:32AM ; [facility] Primary insomnia 3 MONTH CHECK with KIRT PRUITT MD 08/23/2016 Last Documented On 6 10:32AM ; [facility] Right-sided sciatica 3 MONTH CHECK with KIRT LARSON MD 08/23/2016 Last Documented On 6 10:32AM ; [facility] Adjustment disorder with anxiety GENERAL OFFICE VISIT with KIRT LARSON MD 08/01/2016 Last Documented On 6 11:47AM ; [facility] Benign essential hypertension GENERAL OF FICE VISIT with KIRT LARSON MD 08/01/2016 Last Documented On 6 11:47AM ; [facility] Circadian rhythm sleep disor avery, shift work type GENERAL OFFICE VISIT with KIRT LARSON MD 08/01/2016 Last Documented On 6 11:47AM ; [facility] Primary insomnia GENERAL OFFICE VISIT with KIRT LARSON MD 08/01/2016 Last Documented On 6 11:47AM ; [facility] Right-sided sciatica GENERAL OFFICE VISIT with Aniceto LARSON MD 08/01/2016 Last Documented On 6 11:47AM ; [facility] Bipolar disorder with hypoma lebron versus chanda EMERGENCY ROOM FOLLOW UP with KIRT LARSON MD 06/01/2016 Last Documented On 6 5:16PM ; [facility] Hypertension. Anxiety. /Depr ession. Chronic low back pain CHECK UP with KIRT LARSON MD 05/16/2016 Last Documented On 6 4:54PM ; [facility] Anxiety Insomnia URI Chronic problems list: Adjustment disorder with anxiety Circadian rhythm sleep disorder, shift work type Overweight Primary insomnia Sciatica, right side Tobacco use 1 MONTH CHECK with KIRT LARSON MD 04/04/2016 Last Documented On 6 3:16AM ; [facility] Acute bronchitis. Insomnia. Work shift sleep disorder. Depression/anxiety. Acute maxillary sinusitis. Overweight. Asthma 1 MONTH CHECK with KIRT LARSON MD 02/29/2016 Last Documented On 6 12:44AM ; [facility] Acute pharyngitis. Right sciatica MED CHECK with KIRT LARSON MD 12/14/2015 Last Documented On 6 1:13PM ; [facility] Insomnia Daytime droswiness from shift work MED CHECK with KIRT LARSON MD 11/14/2015 Last Documented On 6 3:51PM ; [facility] Assessment/plan: Sciatica: H ydrocodone, nabumetone, gabapentin at bedtime, and Flexeril. Followup if not improved in 2-3 weeks. Followup if symptoms worsen or weakness in the legs PROBLEM VISIT with KIRT LARSON MD 08/22/2015 Last Documented On 5 5:15PM ; [facility] Instructions Includes: Instructions for all patient encounters Instructions to patient Intervention and counseling on cessation of tobacco use Last Documented On 4 2:37PM ; [facility] Intervention and counseling on cessation of tobacco use Last Documented On 3 11:03AM ; [facility] Lose weight Last Documented On 3 11:01AM ; [facility] Intervention and counseling on cessation of tobacco use Last Documented On 3 3:56PM ; [facility] Intervention and counseling on cessation of tobacco use Last Documented On 3 3:59PM ; [facility] Intervention and counseling on cessation of tobacco use : Patient recieved smoking cessation handout Last Documented On 2 5:06PM ; [facility] Intervention and counseling on cessation of tobacco use Last Documented On 1 3:27PM ; [facility] Intervention and counseling on cessation of tobacco use : Patient recieved smoking cessation handout Last Documented On 1 3:23PM ; [facility] Watch for signs/symptoms of infection, return to the clinic if seen Last Documented On 6 4:21PM ; [facility] Reduced physical activity Last Documented On 5 5:13PM ; [facility] Education and Decision Aids were provided during visit for: Patient education about diet anshu compliance Last Documented On 3 11:01AM ; [facility] Patient education about meal planning Last Documented On 3 11:01AM ; [facility] Education about modifying re cipes Last Documented On 3 11:01AM ; [facility] Education about changing eat ing habits Last Documented On 3 11:01AM ; [facility] Dietary strategies when eati ng out Last Documented On 3 11:01AM ; [facility] Education about reading food labels Last Documented On 3 11:01AM ; [facility] Patient education about a sp ecial diet Low Carbohydrate Macronutrient Controlled meal plan 3 meals daily with 2 snacks Last Documented On 3 11:01AM ; [facility] Patient education about low carbohydrate diet with portion control and macronutrition Last Documented On 3 11:01AM ; [facility] Educational literature on di et given Last Documented On 3 11:01AM ; [facility] Education, guidance, and cou nseling about dietary management Last Documented On 3 11:01AM ; [facility] Adjustment disorder with anx iety (Problem) Last Documented On 6 3:06PM ; [facility] Medical Equipment - Implanted Devices Includes: Current and historical Devices No Medical Equipment Recorded Medications Includes: Current and historical Medications Current Medications (continue as prescribed) Zolpidem Tartrate 10 MG Oral Tablet 04/10/2024 Provider: MARTA Soto Diagnosis: Primary insomnia TAKE 1 TABLET BY MOUTH EVERYDAY AT BEDTIME Last Documented On 4 11:00AM By Marta Storey PA-C ; [facility] Atorvastatin Calcium 20 MG Oral Tablet 04/02/2024 Provider: MARTA Soto Diagnosis: Mixed hyperlipid emia TAKE 1 TABLET BY MOUTH EVERY DAY Last Documented On 4 8:24AM By Marta Storey PA-C ; [facility] Omeprazole 20 MG Oral Capsule Delayed Release 02/14/2024 Provider: MARTA Berrios PA-C Diagnosis: Gastro-esophagea l reflux dis with esophagitis, without bleed TAKE 1 CAPSULE BY MOUTH EVERY DAY Last Documented On 4 8:57AM By Marta Storey PA-C ; [facility] Atorvastatin Calcium 40 MG Oral Tablet 02/14/2024 Provider: MARTA STOREY PA-C Diagnosis: Hyperlipidemia, unspecified One tablet at bed time Last Documented On 4 8:57AM By Marta Storey PA-C ; [facility] Montelukast Sodium 10 MG Oral Tablet 02/14/2024 Provider: MARTA Soto Diagnosis: Allergic rhiniti s, unspecified One tablet daily Last Documented On 4 8:57AM By Marta Storey PA-C ; [facility] Rybelsus 3 MG Oral Tablet 02/14/2024 Provider: TOMMY STOREY PA-C Diagnosis: Morbid (severe) obesity due to excess calories 1 tab daily Last Documented On 4 9:28AM By Marta Storey PA-C ; [facility] Ubrelvy 100 MG Oral Tablet 02/14/2024 Provider: MARTA Soto Diagnosis: Morbid (severe) obesity due to excess calories take 1 tab at onset of heada melly. repeat after 2 hours if needed Last Documented On 4 9:28AM By Marta Storey PA-C ; [facility] Ubrelvy 100 MG Oral Tablet 11/14/2023 Provider: MARTA Soto Diagnosis: Migraine w/o aur a, intractable, without status migrainosus take 1 tab at onset of migra ine. may repeat in 2 hours. max 2 tabs in 24 hours Last Documented On 4 3:43PM By Marta Storey PA-C ; [facility] Metoprolol Succinate ER 50 MG Oral Tablet Extended Release 24 Hour 04/29/2023 Provider: MARTA HARRELL PA-C Diagnosis: Essential (prima ry) hypertension TAKE 1 TABLET BY MOUTH EVERY DAY Last Documented On 3 8:35AM By Marta Storey PA-C ; [facility] Xanax 0.25 MG Oral Tablet 10/24/2022 Provider: Diagnosis: Bianca Angel at [place] Last Documented On 2 9:53AM By Marta Storey PA-C ; [facility] hydrOXYzine HCl 25 MG Oral Tablet 10/24/2022 Provide r: Diagnosis: Bianca Angel at [place] Last Documented On 2 9:54AM By Marta Storey PA-C ; [facility] Past Medications on file Zolpidem Tartrate 10 MG Oral Tablet 03/13/2024 - 04/10/2024 Provider: MARTA Berrios PA-C Diagnosis: Primary insomnia TAKE 1 TABLET BY MOUTH EVERYDAY AT BEDTIME Last Documented On 4 10:46AM By Marta Storey PA-C ; [facility] Zolpidem Tartrate 10 MG Oral Tablet 02/14/2024 - 03/13/2024 Provider: MATRA Berrios PA-C Diagnosis: Primary insomnia TAKE 1 TABLET BY MOUTH EVERYDAY AT BEDTIME Last Documented On 4 8:10AM By Marta Storey PA-C ; [facility] Zolpidem Tartrate 10 MG Oral Tablet 11/18/2023 - 02/14/2024 Provider: JAIME SNIDER MD Diagnosis: Primary insomnia TAKE 1 TABLET BY MOUTH EVERYDAY AT BEDTIME Last Documented On 4 8:56AM By Marta Storey PA-C ; [facility] Ubrelvy 100 MG Oral Tablet 11/14/2023 - 02/14/2024 Pro vider: MARTA STOREY PA-C Diagnosis: TAKE ONE TABLET AT MIGRAINE ONSET. MAY REPEAT IN 2 HOURS IF NEEDED. DO NOT EXCEED MORE THAN 2 DOSES IN 24 HOUR PEROID. Last Documented On 02/14/2024 8:28AM By Amirah MYERS ; [facility] Quviviq 25 MG Oral Tablet 11/14/2023 - 02/14/2024 Provider: MARTA Berrios PA-C Diagnosis: Primary insomnia take 1 tab 30 min before bedtime Last Documented On 02/14/2024 8:27AM By Amirah MYERS ; [facility] Zolpidem Tartrate 10 MG Oral Tablet 10/23/2023 - 11/18/2023 Provider: MARTA Berrios PA-C Diagnosis: Primary insomnia TAKE 1 TABLET BY MOUTH EVERYDAY AT BEDTIME Last Documented On 11/18/2023 10:51AM By JAIME SNIDER MD ; [facility] Zolpidem Tartrate 10 MG Oral Tablet 09/24/2023 - 10/23/2023 Provider: MARTA Berrios PA-C Diagnosis: Primary insomnia TAKE 1 TABLET BY MOUTH EVERYDAY AT BEDTIME Last Documented On 3 10:26AM By Marta Storey PA-C ; [facility] Zolpidem Tartrate 10 MG Oral Tablet 08/26/2023 - 09/24/2023 Provider: MARTA Berrios PA-C Diagnosis: Primary insomnia TAKE 1 TABLET BY MOUTH EVERYDAY AT BEDTIME Last Documented On 3 4:50PM By Marta Storey PA-C ; [facility] Omeprazole 20 MG Oral Capsule Delayed Release 08/12/2023 - 02/14/2024 Provider: MARTA ANDERSON PA-C Diagnosis: TAKE 1 CAPSULE BY MOUTH EVERY DAY Last Documented On 4 8:56AM By Marta Storey PA-C ; [facility] Zolpidem Tartrate 10 MG Oral Tablet 07/24/2023 - 08/26/2023 Provider: MARTA Berrios PA-C Diagnosis: Primary insomnia TAKE 1 TABLET BY MOUTH EVERY DAY AT BEDTIME DNF 07/27 Last Documented On 3 10:20AM By Marta Storey PA-C ; [facility] Zolpidem Tartrate 10 MG Oral Tablet 06/26/2023 - 07/24/2023 Provider: MARTA Berrios PA-C Diagnosis: Primary insomnia TAKE 1 TABLET BY MOUTH EVERY DAY AT BEDTIME *DNF 05/30 Last Documented On 3 8:03AM By Marta Storey PA-C ; [facility] traMADol HCl 50 MG Oral Tablet 05/28/2023 - 08/20/2023 Provider: MARTA Berrios PA-C Diagnosis: Lumbago with sci atica, right side 1 tab BID PRN pain Last Documented On 08/20/2023 11:06AM By Yifan MYERS ; [facility] Zolpidem Tartrate 10 MG Oral Tablet 05/28/2023 - 06/26/2023 Provider: MARTA Berrios PA-C Diagnosis: Primary insomnia TAKE 1 TABLET BY MOUTH EVERYDAY AT BEDTIME Last Documented On 3 10:09AM By Marta Storey PA-C ; [facility] predniSONE 20 MG Oral Tablet 05/08/2023 - 05/28/2023 Provider: MARTA Berrios PA-C Diagnosis: Pain in right hi p take 3 tabs for 3 days, then 2 tabs for 3 days, then 1 tab for 3 days then stop Last Documented On 05/28/2023 3:55PM By Lizette MYERS ; [facility] Zolpidem Tartrate 10 MG Oral Tablet 05/01/2023 - 05/28/2023 Provider: MARTA Berrios PA-C Diagnosis: TAKE 1 TABLET BY MOUTH EVERY DAY AT BEDTIME (DNF 04/02/2023 PER MD) Last Documented On 3 4:37PM By Marta Storey PA-C ; [facility] Atorvastatin Calcium 20 MG Oral Tablet 04/29/2023 - 04/02/2024 Provider: MARTA STOREY PA-C Diagnosis: Mixed hyperlipid emia TAKE 1 TABLET BY MOUTH EVERY DAY Last Documented On 4 8:21AM By Marta Storey PA-C ; [facility] Zolpidem Tartrate 10 MG Oral Tablet 04/01/2023 - 05/01/2023 Provider: MARTA Berrios PA-C Diagnosis: TAKE 1 TABLET BY MOUTH EVERYDAY AT BEDTIME Last Documented On 3 8:01AM By Marta Storey PA-C ; [facility] Vyleesi 1.75 MG/0.3ML Subcutaneous Solution Auto-injector 03/18/2023 - 08/20/2023 Provider: MARTA Berrios PA-C Diagnosis: INJECT 1 PEN UNDER SKIN 45 M IN PRIOR TO SEXUAL ACTIVITY MAX 1 DOSE PER DAY OR 8 PER MONTH Last Documented On 08/20/2023 11:06AM By Yifan MYERS ; [facility] Zolpidem Tartrate 10 MG Oral Tablet 03/04/2023 - 04/01/2023 Provider: MARTA Berrios PA-C Diagnosis: TAKE 1 TABLET BY MOUTH EVERYDAY AT BEDTIME Last Documented On 3 12:53PM By Marta Storey PA-C ; [facility] Omeprazole 20 MG Oral Capsule Delayed Release 02/11/2023 - 08/12/2023 Provider: MARTA ANDERSON PA-C Diagnosis: 1 capsule daily Last Documented On 3 8:46AM By Marta Storey PA-C ; [facility] Vyleesi 1.75 MG/0.3ML Subcutaneous Solution Auto-injector 02/05/2023 - 05/28/2023 Provider: MARTA Berrios PA-C Diagnosis: Decreased libido inject 1.75mg 1 hour before intercourse Last Documented On 05/28/2023 3:56PM By Lizette MYERS ; [facility] Vyleesi 1.75 MG/0.3ML Subcutaneous Solution Auto-injector 01/31/2023 - 01/31/2023 Provider: MARTA Berrios PA-C Diagnosis: Decreased libido inject 1.75mg 1 hour before intercourse Last Documented On 3 9:51AM By Marta Storey PA-C ; [facility] Myrbetriq 25 MG Oral Tablet Extended Release 24 Hour 01/31/2023 - 05/28/2023 Provider: MARTA LIN PA-C Diagnosis: as directed Last Documented On 05/28/2023 3:55PM By Lizette MYERS ; [facility] Omeprazole 20 MG Oral Tablet Delayed Release 01/31/2023 - 02/11/2023 Provider: MARTA STOREY PA-C Diagnosis: Gastro-esophagea l reflux dis with esophagitis, without bleed One tablet daily Last Documented On 3 3:36PM By Marta Storey PA-C ; [facility] Zolpidem Tartrate 10 MG Oral Tablet 01/29/2023 - 03/04/2023 Provider: MARTA Berrios PA-C Diagnosis: TAKE 1 TABLET BY MOUTH EVERYDAY AT BEDTIME Last Documented On 3 12:29PM By Marta Storey PA-C ; [facility] Metoprolol Succinate ER 50 MG Oral Tablet Extended Release 24 Hour 01/28/2023 - 04/29/2023 Provider: MARTA STOREY PA-C Diagnosis: Essential (prima ry) hypertension TAKE 1 TABLET BY MOUTH EVERY DAY Last Documented On 3 8:27AM By Marta Storey PA-C ; [facility] Zolpidem Tartrate 10 MG Oral Tablet 01/03/2023 - 01/29/2023 Provider: MARTA Berrios PA-C Diagnosis: TAKE 1 TABLET BY MOUTH AT BEDTIME Last Documented On 3 5:09PM By Marta Storey PA-C ; [facility] Zolpidem Tartrate 10 MG Oral Tablet 12/10/2022 - 01/03/2023 Provider: MARTA Berrios PA-C Diagnosis: One tablet at bed time Last Documented On 3 2:35PM By Marta Storey PA-C ; [facility] Zolpidem Tartrate 10 MG Oral Tablet 12/07/2022 - 01/31/2023 Provider: MARTA Berrios PA-C Diagnosis: Primary insomnia TAKE 1 TABLET BY MOUTH EVERY DAY NEEDED Last Documented On 01/31/2023 3:58PM By Lizette MYERS ; [facility] Zolpidem Tartrate 10 MG Oral Tablet 11/08/2022 - 12/07/2022 Provider: MARTA Berrios PA-C Diagnosis: Primary insomnia TAKE 1 TABLET BY MOUTH EVERY DAY NEEDED Last Documented On 3 8:16AM By Marta Storey PA-C ; [facility] traZODone HCl 50 MG Oral Tablet 11/07/2022 - 11/07/2022 Provider: MARTA Berrios PA-C Diagnosis: TAKE 1 TABLET BY MOUTH EVERY DAY FOR ANXIETY Last Documented On 3 10:18AM By GABRIELA MYERS ; [facility] Armodafinil 250 MG Oral Tablet 10/24/2022 - 08/20/2023 Provider: Diagnosis: Bianca Angel at [place] Last Documented On 08/20/2023 11:05AM By Yifan MYERS ; [facility] Wegovy 0.25 MG/0.5ML Subcutaneous Solution Auto-injector 10/09/2022 - 01/31/2023 Provider: MARTA Berrios PA-C Diagnosis: Overweight 0.5mL weekly Last Documented On 3 4:18PM By Marta Storey PA-C ; [facility] Metoprolol Succinate ER 50 MG Oral Tablet Extended Release 24 Hour 10/09/2022 - 01/28/2023 Provider: MARTA STOREY PA-C Diagnosis: Essential (prima ry) hypertension One tablet daily Last Documented On 3 8:41AM By Marta Storey PA-C ; [facility] Atorvastatin Calcium 20 MG Oral Tablet 10/09/2022 - 04/29/2023 Provider: MARTA STOREY PA-C Diagnosis: Mixed hyperlipid emia TAKE 1 TABLET BY MOUTH EVERY DAY Last Documented On 3 8:27AM By Marta Storey PA-C ; [facility] Zolpidem Tartrate 10 MG Oral Tablet 10/09/2022 - 11/08/2022 Provider: MARTA Berrios PA-C Diagnosis: Primary insomnia TAKE 1 TABLET BY MOUTH EVERY DAY NEEDED Last Documented On 3 1:04PM By Marta Storey PA-C ; [facility] Zolpidem Tartrate 10 MG Oral Tablet 09/27/2022 - 10/09/2022 Provider: MARTA Berrios PA-C Diagnosis: Primary insomnia TAKE 1 TABLET BY MOUTH EVERY DAY NEEDED Last Documented On 2 4:41PM By Marta Storey PA-C ; [facility] traZODone HCl 50 MG Oral Tablet 09/05/2022 - 10/08/2022 Provider: MARTA Berrios PA-C Diagnosis: TAKE 1 TABLET BY MOUTH EVERY DAY FOR ANXIETY- last fill make appt Last Documented On 2 4:05PM By Marta Storey PA-C ; [facility] Zolpidem Tartrate 10 MG Oral Tablet 08/23/2022 - 09/27/2022 Provider: MARTA Berrios PA-C Diagnosis: Primary insomnia TAKE 1 TABLET BY MOUTH EVERY DAY NEEDED 3 Last Documented On 2 12:41PM By Marta Storey PA-C ; [facility] Zolpidem Tartrate 10 MG Oral Tablet 07/26/2022 - 08/23/2022 Provider: MARTA Berrios PA-C Diagnosis: Primary insomnia TAKE 1 TABLET BY MOUTH EVERY DAY NEEDED Last Documented On 2 2:42PM By Marta Storey PA-C ; [facility] ALPRAZolam 0.5 MG Oral Tablet 07/08/2022 - 10/08/2022 Provider: MARTA STOREY PA-C Diagnosis: Adjustment disor avery with anxiety TAKE 1/2 TABLET BY MOUTH 1-2 X/DAY WEANING DOWN. #20 MUST LAST 30 DAYS. Last Documented On 2 4:06PM By Marta Storey PA-C ; [facility] Armodafinil 250 MG Oral Tablet 07/08/2022 - 10/08/2022 Provider: MARTA STOREY PA-C Diagnosis: Circadian rhythm sleep disorder, shift work type TAKE 1 TABLET BY MOUTH EVERY DAY Last Documented On 2 4:06PM By Marta Storey PA-C ; [facility] Zolpidem Tartrate 10 MG Oral Tablet 06/26/2022 - 07/26/2022 Provider: MARTA Berrios PA-C Diagnosis: Primary insomnia TAKE 1 TABLET BY MOUTH EVERY DAY NEEDED Last Documented On 2 5:02PM By Marta Storey PA-C ; [facility] Armodafinil 250 MG Oral Tablet 06/08/2022 - 07/08/2022 Provider: MARTA STOREY PA-C Diagnosis: Circadian rhythm sleep disorder, shift work type TAKE 1 TABLET BY MOUTH EVERY DAY Last Documented On 2 10:59PM By Marta Storey PA-C ; [facility] ALPRAZolam 0.5 MG Oral Tablet 06/08/2022 - 07/08/2022 Provider: MARTA STOREY PA-C Diagnosis: Adjustment disor avery with anxiety TAKE 1/2 TABLET BY MOUTH 1-2 X/DAY; Weaning down. #30 must last 30 days. Last Documented On 2 11:01PM By Marta Storey PA-C ; [facility] Zolpidem Tartrate 10 MG Oral Tablet 05/30/2022 - 06/26/2022 Provider: JAIME SNIDER MD Diagnosis: Primary insomnia TAKE 1 TABLET BY MOUTH EVERY DAY NEEDED Last Documented On 2 3:32PM By Marta Storey PA-C ; [facility] traZODone HCl 50 MG Oral Tablet 05/21/2022 - 06/08/2022 Provider: THANH GONZALEZ PA-C Diagnosis: Adjustment disor avery with anxiety TAKE 1 TABLET BY MOUTH EVERY DAY FOR ANXIETY Last Documented On 2 3:56PM By Marta Storey PA-C ; [facility] Armodafinil 250 MG Oral Tablet 05/08/2022 - 06/08/2022 Provider: THANH GONZALEZ PA-C Diagnosis: Primary insomnia TAKE 1 TABLET BY MOUTH EVERY DAY Last Documented On 2 3:57PM By Marta Storey PA-C ; [facility] ALPRAZolam 0.5 MG Oral Tablet 05/07/2022 - 06/08/2022 Provider: THANH GONZALEZ PA-C Diagnosis: TAKE 1/2 TABLET BY MOUTH 1-2 X/DAY; Fill 05/08/22. Weaning down. #40 must last 30 days. Last Documented On 2 3:57PM By Marta Storey PA-C ; [facility] Zolpidem Tartrate 10 MG Oral Tablet 04/27/2022 - 05/30/2022 Provider: THANH GONZALEZ PA-C Diagnosis: Primary insomnia TAKE 1 TABLET BY MOUTH EVERY DAY Fill when due (04/29/22) Last Documented On 05/30/2022 11:33AM By JAIME SNIDER MD ; [facility] Atorvastatin Calcium 20 MG Oral Tablet 04/19/2022 - 10/09/2022 Provider: THANH GONZALEZ PA-C Diagnosis: Mixed hyperlipid emia TAKE 1 TABLET BY MOUTH EVERY DAY Last Documented On 10/09/2022 4:41PM By Yifan MYERS ; [facility] traZODone HCl 50 MG Oral Tablet 04/15/2022 - 05/21/2022 Provider: THANH GONZALEZ PA-C Diagnosis: Adjustment disor avery with anxiety TAKE 1 TABLET BY MOUTH EVERY DAY FOR ANXIETY Last Documented On 2 8:40AM By THANH GONZALEZ PA-C ; [facility] Armodafinil 250 MG Oral Tablet 04/06/2022 - 05/08/2022 Provider: THANH GONZALEZ PA-C Diagnosis: Primary insomnia TAKE 1 TABLET BY MOUTH EVERY DAY Fill 04/08/22 Last Documented On 2 9:32PM By THANH GONZALEZ PA-C ; [facility] ALPRAZolam 0.5 MG Oral Tablet 04/06/2022 - 05/07/2022 Provider: THANH GONZALEZ PA-C Diagnosis: TAKE 1 TABLET BY MOUTH TWICE A DAY Fill 04/08/22; #50. Weaning off. Last Documented On 2 4:08PM By THANH GONZALEZ PA-C ; [facility] Zolpidem Tartrate 10 MG Oral Tablet 03/30/2022 - 04/27/2022 Provider: THANH GONZALEZ PA-C Diagnosis: Primary insomnia TAKE 1 TABLET BY MOUTH EVERY DAY Fill 03/30/22 Last Documented On 2 5:12PM By THANH GONZALEZ PA-C ; [facility] Trulicity 0.75 MG/0.5ML Subcutaneous Solution Pen-injector 03/20/2022 - 06/08/2022 Provider: THANH GONZALEZ PA-C Diagnosis: Overweight as directed Last Documented On 2 3:17PM By Marta Storey PA-C ; [facility] Metoprolol Succinate ER 50 MG Oral Tablet Extended Release 24 Hour 03/20/2022 - 10/09/2022 Provider: THANH GONZALEZ PA-C Diagnosis: Essential (prima ry) hypertension One tablet daily Last Documented On 2 4:42PM By Marta Storey PA-C ; [facility] Atorvastatin Calcium 20 MG Oral Tablet 03/20/2022 - 04/19/2022 Provider: THANH GONZALEZ PA-C Diagnosis: Mixed hyperlipid emia One tablet daily Last Documented On 2 10:21AM By THANH GONZALEZ PA-C ; [facility] traZODone HCl 50 MG Oral Tablet 03/20/2022 - 04/15/2022 Provider: THANH GONZALEZ PA-C Diagnosis: Adjustment disor avery with anxiety 1 tab PO qd for anxiety. Last Documented On 2 3:04PM By THANH GONZALEZ PA-C ; [facility] Armodafinil 250 MG Oral Tablet 03/06/2022 - 04/06/2022 Provider: MARTA Berrios PA-C Diagnosis: Primary insomnia TAKE 1 TABLET BY MOUTH EVERY DAY Last Documented On 2 11:23AM By THANH GONZALEZ PA-C ; [facility] ALPRAZolam 0.5 MG Oral Tablet 03/06/2022 - 04/06/2022 Provider: MARTA Berrios PA-C Diagnosis: TAKE 1 TABLET BY MOUTH TWICE A DAY DNF 02/07/22 Last Documented On 2 11:22AM By THANH GONZALEZ PA-C ; [facility] Zolpidem Tartrate 10 MG Oral Tablet 02/26/2022 - 03/30/2022 Provider: MARTA Berrios PA-C Diagnosis: Primary insomnia TAKE 1 TABLET BY MOUTH EVERY DAY Last Documented On 2 10:48AM By THANH GONZALEZ PA-C ; [facility] Viibryd Starter Pack 10 & 20 MG Oral Kit 02/13/2022 - 03/20/2022 Provider: MARTA STOREY PA-C Diagnosis: Adjustment disor avery with anxiety follow starter pack instructions Last Documented On 03/20/2022 3:44PM By ABBY MYERS ; [facility] Wegovy 1 MG/0.5ML Subcutaneous Solution Auto-injector 02/12/2022 - 03/20/2022 Provider: MARTA Berrios PA-C Diagnosis: Overweight 1mg weekly Last Documented On 03/20/2022 3:39PM By ABBY MYERS ; [facility] Diclofenac Potassium 50 MG Oral Tablet 02/12/2022 - 10/08/2022 Provider: MARTA STOREY PA-C Diagnosis: Pain in unspecif ied knee One tablet twice a day Last Documented On 2 4:05PM By Marta Storey PA-C ; [facility] Armodafinil 250 MG Oral Tablet 02/06/2022 - 03/06/2022 Provider: MARTA Berrios PA-C Diagnosis: Primary insomnia TAKE 1 TABLET BY MOUTH EVERY DAY Last Documented On 2 7:56AM By Marta Storey PA-C ; [facility] ALPRAZolam 0.5 MG Oral Tablet 02/05/2022 - 03/06/2022 Provider: MARTA Berrios PA-C Diagnosis: TAKE 1 TABLET BY MOUTH TWICE A DAY Last Documented On 2 8:06AM By Marta Storey PA-C ; [facility] Zolpidem Tartrate 10 MG Oral Tablet 01/26/2022 - 02/26/2022 Provider: MARTA Berrios PA-C Diagnosis: Primary insomnia TAKE 1 TABLET BY MOUTH EVERY DAY Last Documented On 2 9:43AM By Marta Storey PA-C ; [facility] Desvenlafaxine Succinate ER 50 MG Oral Tablet Extended Release 24 Hour 01/21/2022 - 02/13/2022 Provider: MARTA STOREY PA-C Diagnosis: Adjustment disor avery with anxiety TAKE 1 TABLET BY MOUTH EVERY DAY Last Documented On 2 1:03PM By Marta Storey PA-C ; [facility] ALPRAZolam 0.5 MG Oral Tablet 01/08/2022 - 02/05/2022 Provider: MARTA Berrios PA-C Diagnosis: TAKE 1 TABLET BY MOUTH TWICE A DAY Last Documented On 2 8:49AM By Marta Storey PA-C ; [facility] Zolpidem Tartrate 10 MG Oral Tablet 12/26/2021 - 01/26/2022 Provider: MARTA Berrios PA-C Diagnosis: Primary insomnia TAKE 1 TABLET BY MOUTH EVERY DAY Last Documented On 2 3:21PM By Marta Storey PA-C ; [facility] HYDROcodone-Acetaminophen 10 -325 MG Oral Tablet 12/18/2021 - 06/04/2022 Provider: MARTA STOREY PA-C Diagnosis: 2 tabs daily for 5 days, the n 1 tab daily for 5 days, then 1 tab every other day for 5 days then stop Last Documented On 06/04/2022 9:46AM By ABBY MYERS ; [facility] Desvenlafaxine ER 50 MG Oral Tablet Extended Release 24 Hour 12/15/2021 - 01/21/2022 Provider: MARTA STOREY PA-C Diagnosis: Adjustment disor avery with anxiety One tablet daily - replacing prozac Last Documented On 2 10:24AM By Marta Storey PA-C ; [facility] FLUoxetine HCl 20 MG Oral Tablet 12/11/2021 - 12/27/2021 Provider: MARTA STOREY PA-C Diagnosis: Adjustment disor avery with anxiety One tablet daily Last Documented On 2 12:44PM By Marta Storey PA-C ; [facility] ALPRAZolam 0.5 MG Oral Tablet 12/06/2021 - 01/08/2022 Provider: MARTA Berrios PA-C Diagnosis: TAKE 1 TABLET BY MOUTH TWICE A DAY Last Documented On 2 12:54PM By Marta Storey PA-C ; [facility] Zolpidem Tartrate 10 MG Oral Tablet 12/01/2021 - 12/26/2021 Provider: MARTA Berrios PA-C Diagnosis: Primary insomnia TAKE 1 TABLET BY MOUTH EVERY DAY Last Documented On 2 4:46PM By Marta Storey PA-C ; [facility] FLUoxetine HCl 40 MG Oral Capsule 11/27/2021 - 03/20/2022 Provider: MARTA STOREY PA-C Diagnosis: Adjustment disor avery with anxiety TAKE 1 CAPSULE BY MOUTH EVERY DAY Last Documented On 03/20/2022 3:38PM By ABBY MYERS ; [facility] HYDROcodone-Acetaminophen 10 -325 MG Oral Tablet 11/17/2021 - 12/18/2021 Provider: MATRA STOREY PA-C Diagnosis: One tablet twice a day. Last Documented On 2 2:49PM By Marta Storey PA-C ; [facility] ALPRAZolam 0.5 MG Oral Tablet 11/12/2021 - 12/06/2021 Provider: MARTA Berrios PA-C Diagnosis: TAKE 1 TABLET BY MOUTH TWICE A DAY Last Documented On 2 1:13PM By Marta Storey PA-C ; [facility] Zolpidem Tartrate 10 MG Oral Tablet 11/01/2021 - 12/01/2021 Provider: MARTA Berrios PA-C Diagnosis: Primary insomnia TAKE 1 TABLET BY MOUTH EVERY DAY Last Documented On 2 10:48AM By Marta Storey PA-C ; [facility] Ozempic (0.25 or 0.5 MG/DOSE) 2 MG/1.5ML Subcutaneous Solution Pen-injector 11/01/2021 - 06/08/2022 Provider: MARTA STOREY PA-C Diagnosis: Hyperglycemia, unspecified 0.25mg weekly Last Documented On 2 3:17PM By Marta Storey PA-C ; [facility] FLUoxetine HCl 40 MG Oral Capsule 11/01/2021 - 11/27/2021 Provider: MARTA STOREY PA-C Diagnosis: Adjustment disor avery with anxiety 1 capsule daily Last Documented On 2 9:07AM By Marta Storey PA-C ; [facility] Zolpidem Tartrate 10 MG Oral Tablet 10/30/2021 - 10/31/2021 Provider: MARTA Berrios PA-C Diagnosis: TAKE 1 TABLET BY MOUTH EVERY DAY Last Documented On 2 8:03AM By Marta Storey PA-C ; [facility] HYDROcodone-Acetaminophen 10 -325 MG Oral Tablet 10/19/2021 - 11/17/2021 Provider: MARTA STOREY PA-C Diagnosis: One tablet twice a day. Last Documented On 2 2:12PM By Marta Storey PA-C ; [facility] Zolpidem Tartrate 10 MG Oral Tablet 09/28/2021 - 10/30/2021 Provider: MARTA Berrios PA-C Diagnosis: Primary insomnia TAKE 1 TABLET BY MOUTH EVERY DAY Last Documented On 2 10:22AM By Marta Storey PA-C ; [facility] HYDROcodone-Acetaminophen 10 -325 MG Oral Tablet 09/19/2021 - 10/19/2021 Provider: MARTA STOREY PA-C Diagnosis: One tablet twice a day. Last Documented On 1 11:24AM By Marta Storey PA-C ; [facility] FLUoxetine HCl 20 MG Oral Capsule 09/07/2021 - 11/03/2021 Provider: MARTA Berrios PA-C Diagnosis: TAKE 1 CAPSULE BY MOUTH EVERY DAY Last Documented On 2 7:19PM By Marta Storey PA-C ; [facility] HYDROcodone-Acetaminophen 10 -325 MG Oral Tablet 08/21/2021 - 09/19/2021 Provider: KIRT LARSON MD Diagnosis: One tablet twice a day. Last Documented On 1 9:33AM By Marta Storey PA-C ; [facility] Armodafinil 250 MG Oral Tablet 08/17/2021 - 02/06/2022 Provider: KIRT Bermeo MD Diagnosis: Primary insomnia TAKE 1 TABLET BY MOUTH EVERY DAY Last Documented On 2 8:03AM By Marta Storey PA-C ; [facility] ALPRAZolam 0.5 MG Oral Tablet 07/26/2021 - 11/12/2021 Provider: KIRT LARSON MD Diagnosis: TAKE 1 TABLET BY MOUTH TWICE A DAY Last Documented On 2 4:12PM By Marta Storey PA-C ; [facility] Atorvastatin Calcium 20 MG Oral Tablet 07/26/2021 - 03/20/2022 Provider: KIRT LARSON MD Diagnosis: Mixed hyperlipid emia One tablet daily Last Documented On 2 4:24PM By THANH GONZALEZ PA-C ; [facility] Metoprolol Succinate ER 50 MG Oral Tablet Extended Release 24 Hour 07/26/2021 - 03/20/2022 Provider: KIRT LARSON MD Diagnosis: Essential (prima ry) hypertension One tablet daily Last Documented On 4:25PM By THANH GONZALEZ PA-C ; [facility] Armodafinil 250 MG Oral Tablet 07/26/2021 - 08/17/2021 Provider: KIRT LARSON MD Diagnosis: TAKE 1 TABLET BY MOUTH EVERY DAY Last Documented On 08/17/2021 1:13PM By KIRT LARSON MD ; [facility] Anoro Ellipta 62.5-25 MCG/INH Inhalation Aerosol Powder Breath Activated 07/26/2021 - 08/20/2023 Provider: KIRT LARSON MD Diagnosis: Simple chronic bronchitis as directed use once a day at bedtime, Last Documented On 08/20/2023 11:05AM By Yifan MYERS ; [facility] HYDROcodone-Acetaminophen 10 -325 MG Oral Tablet 07/21/2021 - 08/21/2021 Provider: KIRT LARSON MD Diagnosis: One tablet twice a day. Last Documented On 08/21/2021 8:42AM By KIRT LARSON MD ; [facility] ALPRAZolam 0.5 MG Oral Tablet 07/19/2021 - 07/26/2021 Provider: KIRT LARSON MD Diagnosis: Adjustment disor avery with anxiety TAKE 1 TABLET BY MOUTH TWICE A DAY Last Documented On 07/26/2021 3:49PM By KIRT LARSON MD ; [facility] FLUoxetine HCl 20 MG Oral Capsule 07/16/2021 - 09/07/2021 Provider: KIRT Bermeo MD Diagnosis: TAKE 1 CAPSULE BY MOUTH EVERY DAY Last Documented On 09/07/2021 3:43PM By Yifan MYERS ; [facility] Zolpidem Tartrate 10 MG Oral Tablet 07/06/2021 - 09/28/2021 Provider: KIRT Bermeo MD Diagnosis: Primary insomnia TAKE 1 TABLET BY MOUTH EVERY DAY Last Documented On 9:32PM By Marta Storey PA-C ; [facility] HYDROcodone-Acetaminophen 10 -325 MG Oral Tablet 2021 - 07/20/2021 Provider: KIRT LARSON MD Diagnosis: One tablet twice a day. Last Documented On 07/21/2021 8:47AM By KIRT LARSON MD ; [facility] HYDROcodone-Acetaminophen 10 -325 MG Oral Tablet 05/24/2021 - 06/19/2021 Provider: KIRT LARSON MD Diagnosis: One tablet twice a day. Last Documented On 2021 3:14PM By KIRT LARSON MD ; [facility] ALPRAZolam 0.5 MG Oral Tablet 05/22/2021 - 07/19/2021 Provider: KIRT LARSON MD Diagnosis: Adjustment disor avery with anxiety TAKE 1 TABLET BY MOUTH TWICE A DAY Last Documented On 10:39AM By KIRT LARSON MD ; [facility] HYDROcodone-Acetaminophen 10 -325 MG Oral Tablet 04/25/2021 - 05/23/2021 Provider: KIRT LARSON MD Diagnosis: One tablet twice a day. Last Documented On 05/24/2021 1:15PM By KIRT LARSON MD ; [facility] Addyi 100 MG Oral Tablet 04/25/2021 - 11/03/2021 Provider: KIRT Bermeo MD Diagnosis: Decreased libido One tablet at bed time Last Documented On 7:18PM By Marta Storey PA-C ; [facility] PROzac 20 MG Oral Capsule 04/23/2021 - 07/16/2021 Prov ider: KIRT LARSON MD Diagnosis: One tablet daily Last Documented On 07/16/2021 9:55PM By KIRT LARSON MD ; [facility] HYDROcodone-Acetaminophen 7. 5-325 MG Oral Tablet 03/24/2021 - 10/31/2021 Provider: KIRT LARSON MD Diagnosis: Low back pain One tablet twice a day Last Documented On 10/31/2021 3:20PM By Amirah MYERS ; [facility] Trintellix 10 MG Oral Tablet 03/24/2021 - 04/23/2021 Provider: KIRT LARSON MD Diagnosis: Bipolar disorder , unspecified TAKE ONE TABLET BY MOUTH SYDNEY LY - STOP ABILIFY Last Documented On 04/23/2021 3:08PM By KIRT LARSON MD ; [facility] Metoprolol Succinate ER 50 MG Oral Tablet Extended Release 24 Hour 03/24/2021 - 07/26/2021 Provider: KIRT LARSON MD Diagnosis: Essential (prima ry) hypertension One tablet daily Last Documented On 07/26/2021 3:50PM By KIRT LARSON MD ; [facility] Zolpidem Tartrate 10 MG Oral Tablet 03/24/2021 - 07/06/2021 Provider: KIRT Bermeo MD Diagnosis: Primary insomnia TAKE 1 TABLET BY MOUTH EVERY DAY Last Documented On 11:44AM By KIRT LARSON MD ; [facility] Armodafinil 250 MG Oral Tablet 03/24/2021 - 07/26/2021 Provider: KIRT Bermeo MD Diagnosis: Primary insomnia TAKE 1 TABLET BY MOUTH EVERY DAY Last Documented On 07/26/2021 3:50PM By KIRT LARSON MD ; [facility] ALPRAZolam 0.5 MG Oral Tablet 03/24/2021 - 05/22/2021 Provider: KIRT LARSNO MD Diagnosis: Adjustment disor vaery with anxiety One tablet twice a day Last Documented On 11:45PM By KIRT LARSON MD ; [facility] Atorvastatin Calcium 20 MG Oral Tablet 03/24/2021 - 07/26/2021 Provider: KIRT Bermeo MD Diagnosis: One tablet daily Last Documented On 07/26/2021 3:50PM By KIRT LARSON MD ; [facility] HYDROcodone-Acetaminophen 10 -325 MG Oral Tablet 03/15/2021 - 04/25/2021 Provider: KIRT LARSON MD Diagnosis: Low back pain One tablet twice a day. Last Documented On 04/25/2021 4:00PM By KIRT LARSON MD ; [facility] HYDROcodone-Acetaminophen 10 -325 MG Oral Tablet 02/08/2021 - 03/14/2021 Provider: KIRT LARSON MD Diagnosis: Low back pain One tablet twice a day. Last Documented On 10:43AM By KIRT LARSON MD ; [facility] Atorvastatin Calcium 20 MG Oral Tablet 01/10/2021 - 03/24/2021 Provider: KIRT Bermeo MD Diagnosis: One tablet daily Last Documented On 03/24/2021 3:45PM By KIRT LARSON MD ; [facility] Trintellix 10 MG Oral Tablet 01/10/2021 - 03/24/2021 Provider: KIRT LARSON MD Diagnosis: Bipolar disorder , unspecified TAKE ONE TABLET BY MOUTH SYDNEY LY - STOP ABILIFY Last Documented On 03/24/2021 3:47PM By KIRT LARSON MD ; [facility] Topamax 50 MG Oral Tablet 01/10/2021 - 10/31/2021 Provider: KIRT Bermeo MD Diagnosis: Obesity, unspeci fied One tablet twice a day Last Documented On 10/31/2021 3:21PM By Amirah MYERS ; [facility] Metoprolol Succinate ER 50 MG Oral Tablet Extended Release 24 Hour 01/10/2021 - 03/24/2021 Provider: KIRT LARSON MD Diagnosis: Essential (prima ry) hypertension One tablet daily Last Documented On 03/24/2021 3:47PM By KIRT LARSON MD ; [facility] Zolpidem Tartrate 10 MG Oral Tablet 01/10/2021 - 03/24/2021 Provider: KIRT Bermeo MD Diagnosis: Primary insomnia TAKE 1 TABLET BY MOUTH EVERY DAY Last Documented On 03/24/2021 3:47PM By KIRT LARSON MD ; [facility] Armodafinil 250 MG Oral Tablet 01/10/2021 - 03/24/2021 Provider: KIRT Bermeo MD Diagnosis: Primary insomnia TAKE 1 TABLET BY MOUTH EVERY DAY Last Documented On 03/24/2021 3:46PM By KIRT LARSON MD ; [facility] HYDROcodone-Acetaminophen 10 -325 MG Oral Tablet 01/10/2021 - 02/08/2021 Provider: KIRT LARSON MD Diagnosis: Low back pain One tablet twice a day. Last Documented On 02/08/2021 7:52PM By KIRT LARSON MD ; [facility] Zolpidem Tartrate 10 MG Oral Tablet 12/18/2020 - 01/10/2021 Provider: KIRT Bermeo MD Diagnosis: Primary insomnia TAKE 1 TABLET BY MOUTH EVERY DAY Last Documented On 01/10/2021 1:28PM By KIRT LARSON MD ; [facility] ALPRAZolam 0.5 MG Oral Tablet 11/29/2020 - 03/24/2021 Provider: KIRT LARSON MD Diagnosis: Adjustment disor avery with anxiety One tablet twice a day Last Documented On 03/24/2021 3:45PM By KIRT LARSON MD ; [facility] Topamax 50 MG Oral Tablet 11/29/2020 - 01/10/2021 Provider: KIRT Bermeo MD Diagnosis: Obesity, unspeci fied One tablet twice a day Last Documented On 01/10/2021 1:28PM By KIRT LARSON MD ; [facility] Zolpidem Tartrate 10 MG Oral Tablet 11/29/2020 - 12/18/2020 Provider: KIRT Bermeo MD Diagnosis: Primary insomnia One tablet daily Last Documented On 11:35AM By KIRT LARSON MD ; [facility] HYDROcodone-Acetaminophen 10 -325 MG Oral Tablet 11/16/2020 - 01/10/2021 Provider: JF SANTANA [employer]-C Diagnosis: Low back pain One tablet twice a day. Last Documented On 01/10/2021 1:27PM By KIRT LARSON MD ; [facility] Atorvastatin Calcium 20 MG Oral Tablet 10/24/2020 - 01/10/2021 Provider: KIRT Bermeo MD Diagnosis: One tablet daily Last Documented On 01/10/2021 1:26PM By KIRT LARSON MD ; [facility] Metoprolol Succinate ER 50 MG Oral Tablet Extended Release 24 Hour 10/24/2020 - 01/10/2021 Provider: KIRT LARSON MD Diagnosis: Essential (prima ry) hypertension One tablet daily Last Documented On 01/10/2021 1:28PM By KIRT LARSON MD ; [facility] Trintellix 10 MG Oral Tablet 10/24/2020 - 01/10/2021 Provider: KIRT LARSON MD Diagnosis: Bipolar disorder , unspecified TAKE ONE TABLET BY MOUTH SYDNEY LY - STOP HIPOLITO Last Documented On 01/10/2021 1:28PM By KIRT LARSON MD ; [facility] Armodafinil 250 MG Oral Tablet 10/24/2020 - 01/10/2021 Provider: KIRT Bermeo MD Diagnosis: Primary insomnia TAKE 1 TABLET BY MOUTH EVERY DAY Last Documented On 01/10/2021 1:27PM By KIRT LARSON MD ; [facility] Anoro Ellipta 62.5-25 MCG/INH Inhalation Aerosol Powder Breath Activated 10/24/2020 - 07/26/2021 Provider: KIRT LARSON MD Diagnosis: Simple chronic bronchitis as directed use once a day at bedtime, Last Documented On 07/26/2021 3:49PM By KIRT LARSON MD ; [facility] ALPRAZolam 0.5 MG Oral Tablet 10/24/2020 - 11/29/2020 Provider: KIRT LARSON MD Diagnosis: Adjustment disor avery with anxiety One tablet twice a day Last Documented On 11/29/2020 7:07PM By KIRT LARSON MD ; [facility] HYDROcodone-Acetaminophen 10 -325 MG Oral Tablet 10/17/2020 - 09/25/2020 Provider: KIRT LARSON MD Diagnosis: Low back pain One tablet twice a day. Last Documented On 10/17/2020 9:35PM By KIRT LARSON MD ; [facility] HYDROcodone-Acetaminophen 10 -325 MG Oral Tablet 10/17/2020 - 11/16/2020 Provider: KIRT LARSON MD Diagnosis: Low back pain One tablet twice a day. Last Documented On 11:10PM By Jf Santana [employer]-C ; [facility] ALPRAZolam 0.5 MG Oral Tablet 09/25/2020 - 10/24/2020 Provider: KIRT LARSON MD Diagnosis: Adjustment disor avery with anxiety One tablet twice a day Last Documented On 10/24/2020 3:40PM By KIRT LARSON MD ; [facility] Zolpidem Tartrate 10 MG Oral Tablet 09/25/2020 - 11/29/2020 Provider: KIRT Bermeo MD Diagnosis: One tablet daily Last Documented On 11/29/2020 7:08PM By KIRT LARSON MD ; [facility] Zolpidem Tartrate 1.75 MG Sublingual Tablet Sublingual 09/25/2020 - 09/25/2020 Provider: KIRT Bermeo MD Diagnosis: Low back pain One tablet at bed time Last Documented On 09/25/2020 5:25PM By KIRT LARSON MD ; [facility] HYDROcodone-Acetaminophen 10 -325 MG Oral Tablet 09/09/2020 - 10/17/2020 Provider: KIRT LARSON MD Diagnosis: Low back pain One tablet twice a day. Last Documented On 10/17/2020 9:17PM By KIRT LARSON MD ; [facility] Armodafinil 250 MG Oral Tablet 09/02/2020 - 10/24/2020 Provider: KIRT Bermeo MD Diagnosis: Primary insomnia TAKE 1 TABLET BY MOUTH EVERY DAY Last Documented On 10/24/2020 3:41PM By KIRT LARSON MD ; [facility] ALPRAZolam 0.5 MG Oral Tablet 09/01/2020 - 09/25/2020 Provider: KIRT LARSON MD Diagnosis: Adjustment disor avery with anxiety TAKE 1 TABLET BY MOUTH THREE TIMES A DAY Last Documented On 09/25/2020 3:34PM By KIRT LARSON MD ; [facility] Trintellix 10 MG Oral Tablet 08/18/2020 - 10/24/2020 Provider: KIRT LARSON MD Diagnosis: Bipolar disorder , unspecified TAKE ONE TABLET BY MOUTH SYDNEY LY - STOP ABILIFY Last Documented On 10/24/2020 3:41PM By KIRT LARSON MD ; [facility] HYDROcodone-Acetaminophen 10 -325 MG Oral Tablet 08/08/2020 - 09/09/2020 Provider: KIRT LARSON MD Diagnosis: Low back pain One tablet twice a day. Last Documented On 09/09/2020 2:08AM By KIRT LARSON MD ; [facility] Trintellix 10 MG Oral Tablet 07/17/2020 - 08/18/2020 Provider: KIRT LARSON MD Diagnosis: Bipolar disorder , unspecified TAKE ONE TABLET BY MOUTH SYDNEY LY - STOP ABILIFY Last Documented On 0 11:42PM By KIRT LARSON MD ; [facility] HYDROcodone-Acetaminophen 10 -325 MG Oral Tablet 07/12/2020 - 08/05/2020 Provider: KIRT LARSON MD Diagnosis: Low back pain One tablet twice a day. Last Documented On 08/08/2020 6:38PM By KIRT LARSON MD ; [facility] Atorvastatin Calcium 20 MG Oral Tablet 07/08/2020 - 10/24/2020 Provider: KIRT Bermeo MD Diagnosis: One tablet daily Last Documented On 10/24/2020 3:40PM By KIRT LARSON MD ; [facility] Trintellix 10 MG Oral Tablet 06/24/2020 - 07/17/2020 Provider: KIRT LARSON MD Diagnosis: Bipolar disorder , unspecified One tablet daily Last Documented On 0 8:45AM By GARRETT MYERS ; [facility] Ambien 10 MG Oral Tablet 06/08/2020 - 09/25/2020 Provi avery: KIRT LARSON MD Diagnosis: Low back pain TAKE 1 TAB BY MOUTH AT BEDTIME Last Documented On 09/25/2020 4:53PM By KIRT LARSON MD ; [facility] Abilify 10 MG Oral Tablet 06/08/2020 - 07/25/2020 Provider: KIRT LARSON MD Diagnosis: Bipolar disorder , unspecified One tablet at bed time Last Documented On 0 10:41AM By Meghana MYERS ; [facility] Armodafinil 250 MG Oral Tablet 06/08/2020 - 09/02/2020 Provider: KIRT Bermeo MD Diagnosis: Primary insomnia TAKE 1 TABLET BY MOUTH EVERY DAY Last Documented On 09/02/2020 4:41PM By KIRT LARSON MD ; [facility] Anoro Ellipta 62.5-25 MCG/INH Inhalation Aerosol Powder Breath Activated 06/08/2020 - 10/24/2020 Provider: KIRT LARSON MD Diagnosis: Simple chronic bronchitis as directed use once a day at bedtime, Last Documented On 10/24/2020 3:40PM By KIRT LARSON MD ; [facility] HYDROcodone-Acetaminophen 10 -325 MG Oral Tablet 06/08/2020 - 07/12/2020 Provider: KIRT LARSON MD Diagnosis: Low back pain One tablet twice a day. Last Documented On 07/12/2020 5:20PM By KIRT LARSON MD ; [facility] ALPRAZolam 0.5 MG Oral Tablet 06/04/2020 - 09/01/2020 Provider: KIRT LARSON MD Diagnosis: Adjustment disor avery with anxiety One tablet three times a day Last Documented On 09/01/2020 3:42PM By KIRT LARSON MD ; [facility] HYDROcodone-Acetaminophen 10 -325 MG Oral Tablet 05/07/2020 - 06/07/2020 Provider: JF ASCENCIO Diagnosis: Low back pain One tablet twice a day. Last Documented On 06/08/2020 1:37PM By KIRT LARSON MD ; [facility] Ambien 10 MG Oral Tablet 04/09/2020 - 06/07/2020 Provi avery: KIRT LARSON MD Diagnosis: Low back pain TAKE 1 TAB BY MOUTH AT BEDTIME Last Documented On 06/08/2020 1:36PM By KIRT LARSON MD ; [facility] traMADol HCl 50 MG Oral Tablet 03/23/2020 - 06/24/2020 Provider: KIRT LARSON MD Diagnosis: Sciatica, right side TAKE 1 TABLET BY MOUTH EVERY DAY NEEDED Last Documented On 06/24/2020 4:38PM By Delores Shea CMA ; [facility] HYDROcodone-Acetaminophen 10 -325 MG Oral Tablet 03/18/2020 - 05/07/2020 Provider: KIRT LARSON MD Diagnosis: Low back pain One tablet twice a day. last fill, call for appointment in next month. Last Documented On 0 11:22AM By Jf ASCENCIO ; [facility] Armodafinil 250 MG Oral Tablet 03/08/2020 - 06/07/2020 Provider: KIRT Bermeo MD Diagnosis: Primary insomnia TAKE 1 TABLET BY MOUTH EVERY DAY Last Documented On 06/08/2020 1:37PM By KIRT LARSON MD ; [facility] ALPRAZolam 0.5 MG Oral Tablet 03/07/2020 - 06/04/2020 Provider: KIRT LARSON MD Diagnosis: Adjustment disor avery with anxiety One tablet three times a day Last Documented On 06/04/2020 1:25PM By KIRT LARSON MD ; [facility] HYDROcodone-Acetaminophen 10 -325 MG Oral Tablet 02/17/2020 - 03/18/2020 Provider: KIRT LARSON MD Diagnosis: Low back pain One tablet twice a day. last fill, call for appointment in next month. Last Documented On 0 10:00AM By KIRT LARSON MD ; [facility] ALPRAZolam 0.5 MG Oral Tablet 01/14/2020 - 03/07/2020 Provider: KIRT LARSON MD Diagnosis: Adjustment disor avery with anxiety TAKE 1 TABLET BY MOUTH TWICE A DAY NEEDED. patient needs appt in November with PCP. Last fill. Last Documented On 0 12:45PM By KIRT LARSON MD ; [facility] traMADol HCl 50 MG Oral Tablet 01/14/2020 - 03/23/2020 Provider: KIRT LARSON MD Diagnosis: Sciatica, right side One tablet daily prn Last Documented On 0 12:41PM By KIRT LARSON MD ; [facility] Meloxicam 15 MG Oral Tablet 01/14/2020 - 06/07/2020 Pr ovider: KIRT LARSON MD Diagnosis: Cervicalgia TAKE ONE-HALF TO ONE TABLET BY MOUTH DAILY Last Documented On 06/07/2020 9:23AM By [email or web address] ; [facility] Armodafinil 250 MG Oral Tablet 01/14/2020 - 03/08/2020 Provider: KIRT Bermeo MD Diagnosis: Primary insomnia TAKE 1 TABLET BY MOUTH EVERY DAY Last Documented On 03/08/2020 4:24PM By KIRT LARSON MD ; [facility] Anoro Ellipta 62.5-25 MCG/INH Inhalation Aerosol Powder Breath Activated 01/14/2020 - 06/07/2020 Provider: KIRT LARSON MD Diagnosis: Simple chronic bronchitis as directed use once a day at bedtime, Last Documented On 06/08/2020 1:37PM By KIRT LARSON MD ; [facility] HYDROcodone-Acetaminophen 10 -325 MG Oral Tablet 01/14/2020 - 02/17/2020 Provider: KIRT LARSON MD Diagnosis: Low back pain One tablet twice a day. last fill, call for appointment in next month. Last Documented On 02/17/2020 4:26PM By KIRT LARSON MD ; [facility] Ambien 10 MG Oral Tablet 01/14/2020 - 04/09/2020 Provi avery: KIRT LARSON MD Diagnosis: Low back pain TAKE 1 TABLET BY MOUTH EVERY DAY AT BEDTIME. last fill, needs appt for a check up in the next month. Last Documented On 0 10:09PM By KIRT LARSON MD ; [facility] Metoprolol Succinate ER 25 MG Oral Tablet Extended Release 24 Hour 12/18/2019 - 10/31/2021 Provider: KIRT LARSON MD Diagnosis: Essential (prima ry) hypertension One tablet daily Last Documented On 10/31/2021 3:20PM By Amirah MYERS ; [facility] ALPRAZolam 0.5 MG Oral Tablet 12/18/2019 - 01/14/2020 Provider: KIRT LARSON MD Diagnosis: Adjustment disor avery with anxiety TAKE 1 TABLET BY MOUTH TWICE A DAY NEEDED. patient needs appt in November with PCP. Last fill. Last Documented On 0 10:14AM By KIRT LARSON MD ; [facility] traMADol HCl 50 MG Oral Tablet 12/18/2019 - 01/14/2020 Provider: KIRT LARSON MD Diagnosis: Sciatica, right side One tablet daily prn Last Documented On 0 10:21AM By KIRT LARSON MD ; [facility] Armodafinil 250 MG Oral Tablet 12/18/2019 - 01/14/2020 Provider: KIRT Bermeo MD Diagnosis: Primary insomnia TAKE 1 TABLET BY MOUTH EVERY DAY Last Documented On 0 10:21AM By KIRT LARSON MD ; [facility] Ambien 10 MG Oral Tablet 12/18/2019 - 01/14/2020 Provi avery: KIRT LARSON MD Diagnosis: Low back pain TAKE 1 TABLET BY MOUTH EVERY DAY AT BEDTIME. last fill, needs appt for a check up in the next month. Last Documented On 0 10:14AM By KIRT LARSON MD ; [facility] HYDROcodone-Acetaminophen 10 -325 MG Oral Tablet 12/18/2019 - 01/14/2020 Provider: KIRT LARSON MD Diagnosis: Low back pain One tablet twice a day. last fill, call for appointment in next month. Last Documented On 0 10:15AM By KIRT LARSON MD ; [facility] HYDROcodone-Acetaminophen 10 -325 MG Oral Tablet 11/25/2019 - 12/18/2019 Provider: KIRT LARSON MD Diagnosis: Low back pain One tablet twice a day. last fill, call for appointment in next month. Last Documented On 12/18/2019 1:34PM By KIRT LARSON MD ; [facility] predniSONE 20 MG Oral Tablet 11/24/2019 - 01/14/2020 P rovider: KIRT LARSON MD Diagnosis: as directed 1 tab po q day x 4d, 1/2 tab daily x 4d, 1/4 tab daily x4d Last Documented On 0 9:48AM By GARRETT MYERS ; [facility] ALPRAZolam 0.5 MG Oral Tablet 11/18/2019 - 12/18/2019 Provider: JF Godinez [facility] Diagnosis: Adjustment disor avery with anxiety TAKE 1 TABLET BY MOUTH TWICE A DAY NEEDED. patient needs appt in November with PCP. Last fill. Last Documented On 12/18/2019 1:37PM By KIRT LARSON MD ; [facility] HYDROcodone-Acetaminophen 10 -325 MG Oral Tablet 11/18/2019 - 11/19/2019 Provider: JF Gretchen [employer] [facility] Diagnosis: Low back pain One tablet twice a day. last fill, call for appointment in next month. Last Documented On 11/25/2019 2:14PM By KIRT LARSON MD ; [facility] Ambien 10 MG Oral Tablet 11/18/2019 - 12/18/2019 Provi avery: JF Godinez [employer] [facility] Diagnosis: Low back pain TAKE 1 TABLET BY MOUTH EVERY DAY AT BEDTIME. last fill, needs appt for a check up in the next month. Last Documented On 12/18/2019 1:35PM By KIRT LARSON MD ; [facility] traMADol HCl 50 MG Oral Tablet 11/06/2019 - 12/18/2019 Provider: KIRT LARSON MD Diagnosis: Sciatica, right side One tablet daily prn Last Documented On 12/18/2019 1:36PM By KIRT LARSON MD ; [facility] HYDROcodone-Acetaminophen 10 -325 MG Oral Tablet 10/19/2019 - 11/18/2019 Provider: KIRT LARSON MD Diagnosis: Low back pain One tablet twice a day Last Documented On 0 4:31PM By Jf ASCENCIO ; [facility] ALPRAZolam 0.5 MG Oral Tablet 10/16/2019 - 11/18/2019 Provider: KIRT LARSON MD Diagnosis: Adjustment disor avery with anxiety TAKE 1 TABLET BY MOUTH TWICE A DAY NEEDED Last Documented On 0 1:11PM By Jf ASCENCIO ; [facility] Ambien 10 MG Oral Tablet 10/16/2019 - 11/18/2019 Provi avery: KIRT LARSON MD Diagnosis: Low back pain TAKE 1 TABLET BY MOUTH EVERYDAY AT BEDTIME Last Documented On 0 4:11PM By Jf ASCENCIO ; [facility] Ambien 10 MG Oral Tablet 09/17/2019 - 10/16/2019 Provi avery: KIRT LARSON MD Diagnosis: Low back pain TAKE 1 TABLET BY MOUTH AT BEDTIME Last Documented On 10/16/2019 1:04PM By KIRT LARSON MD ; [facility] Armodafinil 250 MG Oral Tablet 09/17/2019 - 12/18/2019 Provider: KIRT Bermeo MD Diagnosis: Primary insomnia TAKE 1 TABLET BY MOUTH EVERY DAY Last Documented On 12/18/2019 1:36PM By KIRT LARSON MD ; [facility] Anoro Ellipta 62.5-25 MCG/INH Inhalation Aerosol Powder Breath Activated 09/17/2019 - 01/14/2020 Provider: KIRT LARSON MD Diagnosis: Simple chronic bronchitis as directed use once a day at bedtime, Last Documented On 0 10:15AM By KIRT LARSON MD ; [facility] ALPRAZolam 0.5 MG Oral Tablet 09/17/2019 - 10/16/2019 Provider: KIRT LARSON MD Diagnosis: Adjustment disor avery with anxiety TAKE 1 TABLET BY MOUTH TWICE A DAY NEEDED Last Documented On 10/16/2019 1:03PM By KIRT LARSON MD ; [facility] Meloxicam 15 MG Oral Tablet 09/17/2019 - 01/14/2020 Pr ovider: KIRT LARSON MD Diagnosis: Cervicalgia TAKE ONE-HALF TO ONE TABLET BY MOUTH DAILY Last Documented On 0 10:21AM By KIRT LARSON MD ; [facility] Metoprolol Succinate ER 25 MG Oral Tablet Extended Release 24 Hour 09/17/2019 - 12/18/2019 Provider: KIRT LARSON MD Diagnosis: Essential (prima ry) hypertension One tablet daily Last Documented On 12/18/2019 1:34PM By KIRT LARSON MD ; [facility] HYDROcodone-Acetaminophen 10 -325 MG Oral Tablet 09/17/2019 - 10/19/2019 Provider: KIRT LARSON MD Diagnosis: Low back pain One tablet twice a day Last Documented On 9 11:40AM By KIRT LARSON MD ; [facility] Meloxicam 15 MG Oral Tablet 09/11/2019 - 09/17/2019 Pr ovider: KIRT LARSON MD Diagnosis: Cervicalgia TAKE ONE-HALF TO ONE TABLET BY MOUTH DAILY Last Documented On 09/17/2019 1:24PM By KIRT LARSON MD ; [facility] Ambien 10 MG Oral Tablet 08/27/2019 - 09/17/2019 Provi avery: KIRT LARSON MD Diagnosis: Low back pain TAKE 1 TABLET BY MOUTH AT BEDTIME Last Documented On 09/17/2019 1:23PM By KIRT LARSON MD ; [facility] ALPRAZolam 0.5 MG Oral Tablet 08/18/2019 - 09/17/2019 Provider: KIRT LARSON MD Diagnosis: TAKE 1 TABLET BY MOUTH TWICE A DAY NEEDED Last Documented On 09/17/2019 1:25PM By KIRT LARSON MD ; [facility] HYDROcodone-Acetaminophen 10 -325 MG Oral Tablet 08/18/2019 - 09/17/2019 Provider: KIRT LARSON MD Diagnosis: Low back pain One tablet twice a day Last Documented On 09/17/2019 1:24PM By KIRT LARSON MD ; [facility] Ambien 10 MG Oral Tablet 07/27/2019 - 08/27/2019 Provi avery: KIRT LARSON MD Diagnosis: Low back pain TAKE 1 TABLET BY MOUTH AT BEDTIME Last Documented On 08/27/2019 4:27PM By KIRT LARSON MD ; [facility] ALPRAZolam 0.5 MG Oral Tablet 07/20/2019 - 08/18/2019 Provider: KIRT LARSON MD Diagnosis: TAKE 1 TABLET BY MOUTH TWICE A DAY NEEDED Last Documented On 9 10:22AM By KIRT LARSON MD ; [facility] HYDROcodone-Acetaminophen 10 -325 MG Oral Tablet 07/20/2019 - 08/18/2019 Provider: KIRT LARSON MD Diagnosis: Low back pain One tablet twice a day Last Documented On 9 11:00AM By KIRT LARSON MD ; [facility] Ambien 10 MG Oral Tablet 07/04/2019 - 07/27/2019 Provi avery: KIRT LARSON MD Diagnosis: Low back pain TAKE 1 TABLET BY MOUTH AT BEDTIME Last Documented On 07/27/2019 8:42PM By KIRT LARSON MD ; [facility] Ambien 10 MG Oral Tablet 07/03/2019 - 07/04/2019 Provi avery: KIRT LARSON MD Diagnosis: Low back pain TAKE 1 TABLET BY MOUTH AT BEDTIME Last Documented On 07/04/2019 7:32PM By KIRT LARSON MD ; [facility] Armodafinil 250 MG Oral Tablet 06/30/2019 - 09/17/2019 Provider: KIRT LARSON MD Diagnosis: TAKE 1 TABLET BY MOUTH EVERY DAY Last Documented On 09/17/2019 1:26PM By KIRT LARSON MD ; [facility] Armodafinil 250 MG Oral Tablet 06/27/2019 - 06/22/2019 Provider: KIRT LARSON MD Diagnosis: TAKE 1 TABLET BY MOUTH EVERY DAY Last Documented On 06/30/2019 1:06PM By KIRT LARSON MD ; [facility] ALPRAZolam 0.5 MG Oral Tablet 06/22/2019 - 07/20/2019 Provider: KIRT LARSON MD Diagnosis: TAKE 1 TABLET BY MOUTH TWICE A DAY NEEDED Last Documented On 07/20/2019 3:14PM By KIRT LARSON MD ; [facility] HYDROcodone-Acetaminophen 10 -325 MG Oral Tablet 06/22/2019 - 07/20/2019 Provider: KIRT LARSON MD Diagnosis: Low back pain One tablet twice a day Last Documented On 07/20/2019 3:18PM By KIRT LARSON MD ; [facility] Meloxicam 15MG Oral Tablet 06/10/2019 - 09/11/2019 Pro vider: KIRT LARSON MD Diagnosis: Cervicalgia TAKE ONE-HALF TO ONE TABLET BY MOUTH DAILY Last Documented On 09/11/2019 4:35PM By KIRT LARSON MD ; [facility] Ambien 10MG Oral Tablet 06/04/2019 - 07/03/2019 Provid er: KIRT LARSON MD Diagnosis: Low back pain TAKE 1 TABLET BY MOUTH AT BEDTIME Last Documented On 9 12:28PM By KIRT LARSON MD ; [facility] Armodafinil 250MG Oral Tablet 05/26/2019 - 06/27/2019 Provider: KIRT LARSON MD Diagnosis: TAKE 1 TABLET BY MOUTH EVERY DAY Last Documented On 9 10:22AM By KIRT LARSON MD ; [facility] ALPRAZolam 0.5MG Oral Tablet 05/14/2019 - 06/22/2019 P rovider: KIRT LARSON MD Diagnosis: TAKE 1 TABLET BY MOUTH TWICE A DAY NEEDED Last Documented On 06/22/2019 3:26PM By KIRT LARSON MD ; [facility] HYDROcodone-Acetaminophen 10 -325MG Oral Tablet 05/14/2019 - 06/22/2019 Provider: KIRT LARSON MD Diagnosis: Low back pain One tablet twice a day Last Documented On 06/22/2019 3:26PM By KIRT LARSON MD ; [facility] Ambien 10MG Oral Tablet 05/05/2019 - 06/04/2019 Provid er: KIRT LARSON MD Diagnosis: Low back pain TAKE 1 TABLET BY MOUTH AT BEDTIME Last Documented On 06/04/2019 3:49PM By KIRT LARSON MD ; [facility] HYDROcodone-Acetaminophen 10 -325MG Oral Tablet 04/07/2019 - 05/14/2019 Provider: KIRT LARSON MD Diagnosis: Low back pain One tablet twice a day Last Documented On 05/14/2019 4:33PM By KIRT LARSON MD ; [facility] HYDROcodone-Acetaminophen 10 -325MG Oral Tablet 03/10/2019 - 04/07/2019 Provider: KIRT LARSON MD Diagnosis: Low back pain One tablet twice a day Last Documented On 04/07/2019 5:35PM By KIRT LARSON MD ; [facility] tiZANidine HCl 2MG Oral Tablet 03/04/2019 - 09/17/2019 Provider: KIRT Bermeo MD Diagnosis: Low back pain TAKE 1 TABLET BY MOUTH EVERY 8 HOURS NEEDED Last Documented On 9 1:08PM By GARRETT MASSEY Gretchen ; [facility] Meloxicam 15MG Oral Tablet 03/04/2019 - 06/10/2019 Pro vider: KIRT LARSON MD Diagnosis: Cervicalgia TAKE ONE-HALF TO ONE TABLET BY MOUTH DAILY Last Documented On 06/10/2019 1:59PM By KIRT LARSON MD ; [facility] Baclofen 10MG Oral Tablet 03/02/2019 - 10/31/2021 Provider: KIRT LARSON MD Diagnosis: Strain of muscle , fascia and tendon of abdomen, init encntr TAKE 1 TABLET BY MOUTH THREE TIMES A DAY Last Documented On 10/31/2021 3:19PM By Amirah MYERS ; [facility] Armodafinil 250MG Oral Tablet 02/26/2019 - 05/26/2019 Provider: KRIT LARSON MD Diagnosis: TAKE 1 TABLET BY MOUTH EVERY DAY Last Documented On 05/26/2019 3:44PM By KIRT LARSON MD ; [facility] Meloxicam 15MG Oral Tablet 02/10/2019 - 03/04/2019 Provider: PRISCA ALTAMIRANO [employer] [facility] Diagnosis: Cervicalgia 1/2-One tablet daily Last Documented On 9 11:15AM By KIRT LARSON MD ; [facility] tiZANidine HCl 2MG Oral Tablet 02/10/2019 - 03/04/2019 Provider: PRISCA ANDERSON [facility] Diagnosis: Low back pain one every 8 hours prn Last Documented On 9 11:15AM By KIRT LARSON MD ; [facility] HYDROcodone-Acetaminophen 10 -325MG Oral Tablet 02/06/2019 - 03/10/2019 Provider: KIRT LARSON MD Diagnosis: Low back pain One tablet twice a day Last Documented On 03/10/2019 5:34PM By KIRT LARSON MD ; [facility] Ambien 10MG Oral Tablet 02/05/2019 - 05/05/2019 Provid er: KIRT LARSON MD Diagnosis: Low back pain TAKE 1 TABLET BY MOUTH AT BEDTIME Last Documented On 05/05/2019 1:27PM By KIRT LARSON MD ; [facility] ALPRAZolam 0.5MG Oral Tablet 02/05/2019 - 05/14/2019 P rovider: KIRT LARSON MD Diagnosis: TAKE 1 TABLET BY MOUTH TWICE A DAY NEEDED Last Documented On 05/14/2019 3:49PM By KIRT LARSON MD ; [facility] Baclofen 10MG Oral Tablet 01/26/2019 - 03/02/2019 Provider: KIRT LARSON MD Diagnosis: Strain of muscle , fascia and tendon of abdomen, init encntr TAKE 1 TABLET BY MOUTH THREE TIMES A DAY Last Documented On 03/02/2019 4:55PM By KIRT LARSON MD ; [facility] HYDROcodone-Acetaminophen 10 -325MG Oral Tablet 01/07/2019 - 02/06/2019 Provider: KIRT LARSON MD Diagnosis: Low back pain One tablet twice a day Last Documented On 02/06/2019 1:07PM By KIRT LARSON MD ; [facility] Baclofen 10MG Oral Tablet 12/23/2018 - 01/26/2019 Provider: KIRT LARSON MD Diagnosis: Strain of muscle , fascia and tendon of abdomen, init encntr TAKE 1 TABLET BY MOUTH THREE TIMES A DAY Last Documented On 01/26/2019 9:07AM By KIRT LARSON MD ; [facility] Hydrocodone-Acetaminophen 10 -325MG Oral Tablet 12/09/2018 - 01/07/2019 Provider: KIRT LARSON MD Diagnosis: Low back pain One tablet twice a day Last Documented On 9 10:58AM By KIRT LARSON MD ; [facility] Baclofen 10MG Oral Tablet 11/25/2018 - 12/23/2018 Provider: KIRT LARSON MD Diagnosis: Strain of muscle , fascia and tendon of abdomen, init encntr One tablet three times a day Last Documented On 12/23/2018 4:03PM By KIRT LARSON MD ; [facility] Metoprolol Succinate ER 25MG Oral Tablet Extended Release 24 Hour 11/25/2018 - 09/17/2019 Provider: KIRT ALRSON MD Diagnosis: Essential (prima ry) hypertension One tablet daily Last Documented On 09/17/2019 1:24PM By KIRT LARSON MD ; [facility] ALPRAZolam 0.5MG Oral Tablet 11/12/2018 - 02/05/2019 P romarileeder: KIRT LARSON MD Diagnosis: TAKE ONE TABLET BY MOUTH TWO TIMES A DAY NEED ED Last Documented On 9 12:58PM By KIRT LARSON MD ; [facility] Armodafinil 250MG Oral Tablet 11/12/2018 - 02/26/2019 Provider: KIRT LARSON MD Diagnosis: TAKE ONE TABLET BY MOUTH DAILY Last Documented On 02/26/2019 2:13PM By KIRT LARSON MD ; [facility] Cyclobenzaprine HCl 10MG Ora l Tablet 11/12/2018 - 09/17/2019 Provider: KIRT Bermeo MD Diagnosis: TAKE 1 TABLET BY MOUTH TWICE A DAY NEEDED Last Documented On 9 1:08PM By GARRETT MYERS ; [facility] Hydrocodone-Acetaminophen 10 -325MG Oral Tablet 11/12/2018 - 12/09/2018 Provider: KIRT LARSON MD Diagnosis: Low back pain One tablet twice a day Last Documented On 12/09/2018 9:45PM By KIRT LARSON MD ; [facility] Anoro Ellipta 62.5-25MCG/INH Inhalation Aerosol Powder Breath Activated 11/12/2018 - 09/17/2019 Provider: KIRT Bermeo MD Diagnosis: as directed use once a day at bedtime, Last Documented On 09/17/2019 1:25PM By KIRT LARSON MD ; [facility] Anoro Ellipta 62.5-25MCG/INH Inhalation Aerosol Powder Breath Activated 11/12/2018 - 06/18/2019 Provider: KIRT Bermeo MD Diagnosis: as directed use once a day at bedtime Last Documented On 9 11:05AM By GARRETT MYERS ; [facility] Ambien 10MG Oral Tablet 11/12/2018 - 02/05/2019 Provid er: KIRT LARSON MD Diagnosis: Low back pain One tablet at bed time Last Documented On 9 12:59PM By KIRT LARSON MD ; [facility] Hydrocodone-Acetaminophen 10 -325MG Oral Tablet 10/07/2018 - 11/12/2018 Provider: KIRT LARSON MD Diagnosis: Low back pain One tablet twice a day Last Documented On 11/12/2018 3:29PM By KIRT LARSON MD ; [facility] Armodafinil 250MG Oral Tablet 10/01/2018 - 11/12/2018 Provider: KIRT LARSON MD Diagnosis: TAKE ONE TABLET BY MOUTH DAILY Last Documented On 11/12/2018 3:28PM By KIRT LARSON MD ; [facility] ALPRAZolam 0.5MG Oral Tablet 10/01/2018 - 11/12/2018 P rovider: KIRT LARSON MD Diagnosis: TAKE ONE TABLET BY MOUTH TWO TIMES A DAY NEED ED Last Documented On 11/12/2018 3:27PM By KIRT LARSON MD ; [facility] ALPRAZolam 0.5MG Oral Tablet 09/03/2018 - 10/01/2018 P rovider: KIRT LARSON MD Diagnosis: TAKE ONE TABLET BY MOUTH TWO TIMES A DAY NEED ED Last Documented On 10/01/2018 7:44PM By KIRT LARSON MD ; [facility] Belsomra 20MG Oral Tablet 08/31/2018 - 06/18/2019 Provider: KIRT Bermeo MD Diagnosis: Primary insomnia TAKE 1 TABLET BY MOUTH AT BEDTIME Last Documented On 9 11:06AM By GARRETT MYERS ; [facility] Cyclobenzaprine HCl 10MG Ora l Tablet 08/31/2018 - 11/12/2018 Provider: KIRT Bermeo MD Diagnosis: TAKE 1 TABLET BY MOUTH TWICE A DAY NEEDED Last Documented On 11/12/2018 3:28PM By KIRT LARSON MD ; [facility] Armodafinil 250MG Oral Tablet 08/31/2018 - 10/01/2018 Provider: KIRT LARSON MD Diagnosis: TAKE ONE TABLET BY MOUTH DAILY Last Documented On 10/01/2018 7:43PM By KIRT LARSON MD ; [facility] Hydrocodone-Acetaminophen 10 -325MG Oral Tablet 08/25/2018 - 10/07/2018 Provider: KIRT LARSON MD Diagnosis: Low back pain One tablet twice a day Last Documented On 10/07/2018 6:20PM By KIRT LARSON MD ; [facility] Hydrocodone-Acetaminophen 10 -325MG Oral Tablet 08/06/2018 - 08/25/2018 Provider: KIRT LARSON MD Diagnosis: Low back pain One tablet twice a day Last Documented On 08/25/2018 7:21PM By KIRT LARSON MD ; [facility] Belsomra 20MG Oral Tablet 08/06/2018 - 08/31/2018 Provider: KIRT Bermeo MD Diagnosis: Primary insomnia One tablet at bed time Last Documented On 8 11:41AM By KIRT LARSON MD ; [facility] Armodafinil 250MG Oral Tablet 08/06/2018 - 08/31/2018 Provider: KIRT LARSON MD Diagnosis: TAKE ONE TABLET BY MOUTH DAILY Last Documented On 8 11:40AM By KIRT LARSON MD ; [facility] ALPRAZolam 0.5MG Oral Tablet 08/01/2018 - 09/03/2018 Provider: PRISCA ASCENCIO Diagnosis: TAKE ONE TABLET BY MOUTH TWO TIMES A DAY NEED ED Last Documented On 09/03/2018 8:27PM By KIRT LARSON MD ; [facility] Armodafinil 250MG Oral Tablet 07/09/2018 - 08/06/2018 Provider: KIRT LARSON MD Diagnosis: TAKE ONE TABLET BY MOUTH DAILY Last Documented On 08/06/2018 5:06PM By KIRT LARSON MD ; [facility] ALPRAZolam 0.5MG Oral Tablet 07/01/2018 - 08/01/2018 Provider: PRISCA ASCENCIO Diagnosis: TAKE ONE TABLET BY MOUTH TWO TIMES A DAY NEED ED Last Documented On 8 10:50AM By Prisca ASCENCIO ; [facility] Cyclobenzaprine HCl 10MG Ora l Tablet 06/29/2018 - 08/31/2018 Provider: KIRT Bermeo MD Diagnosis: TAKE 1 TABLET BY MOUTH TWICE A DAY NEEDED Last Documented On 8 11:42AM By KIRT LARSON MD ; [facility] Belsomra 20MG Oral Tablet 06/06/2018 - 08/06/2018 Provider: KRIT Bermeo MD Diagnosis: Primary insomnia One tablet at bed time Last Documented On 08/06/2018 7:03PM By KIRT LARSON MD ; [facility] Armodafinil 250MG Oral Tablet 06/06/2018 - 07/09/2018 Provider: KIRT LARSON MD Diagnosis: TAKE ONE TABLET BY MOUTH DAILY Last Documented On 07/09/2018 1:50PM By KIRT LARSON MD ; [facility] Hydrocodone-Acetaminophen 10 -325MG Oral Tablet 06/02/2018 - 08/06/2018 Provider: KIRT LARSON MD Diagnosis: Low back pain One tablet twice a day Last Documented On 08/06/2018 7:02PM By KIRT LARSON MD ; [facility] ALPRAZolam 0.5MG Oral Tablet 05/30/2018 - 07/01/2018 P rovider: KIRT LARSON MD Diagnosis: TAKE ONE TABLET BY MOUTH TWO TIMES A DAY NEED ED Last Documented On 8 12:34PM By Prisca ASCENCIO ; [facility] Belsomra 20MG Oral Tablet 05/07/2018 - 06/06/2018 Provider: KIRT Bermeo MD Diagnosis: Primary insomnia One tablet at bed time Last Documented On 06/06/2018 1:22PM By KIRT LARSON MD ; [facility] Diclofenac Sodium 75MG Oral Tablet Delayed Release 05/07/2018 - 11/12/2018 Provider: KIRT Bermeo MD Diagnosis: Low back pain One tablet twice a day Last Documented On 9 2:59PM By GARRETT MYERS ; [facility] PredniSONE 20MG Oral Tablet 05/07/2018 - 11/12/2018 Provider: KIRT Bermeo MD Diagnosis: Low back pain as directed 1 tab po q day x 4d, 1/2 tab daily x 4d, 1/4 tab daily x4d Last Documented On 9 2:59PM By GARRETT MYERS ; [facility] Lunesta 3MG Oral Tablet 04/29/2018 - 11/12/2018 Provid er: KIRT LARSON MD Diagnosis: TAKE 1 TABLET BY MOUTH AT BEDTIME Last Documented On 9 2:59PM By GARRETT MYERS ; [facility] ALPRAZolam 0.5MG Oral Tablet 04/29/2018 - 05/30/2018 P rovider: KIRT LARSON MD Diagnosis: TAKE ONE TABLET BY MOUTH TWO TIMES A DAY NEED ED Last Documented On 8 10:44AM By KIRT LARSON MD ; [facility] Hydrocodone-Acetaminophen 10 -325MG Oral Tablet 04/26/2018 - 06/02/2018 Provider: KIRT LARSON MD Diagnosis: Low back pain One tablet twice a day Last Documented On 06/02/2018 9:06PM By KIRT LARSON MD ; [facility] Azithromycin 500MG Oral Tablet 04/03/2018 - 05/07/2018 Provider: JAIME SNIDER MD Diagnosis: One tablet daily Last Documented On 05/07/2018 3:59PM By ASHER MYERS ; [facility] ALPRAZolam 0.5MG Oral Tablet 03/31/2018 - 04/29/2018 P rovider: KIRT LARSON MD Diagnosis: TAKE ONE TABLET BY MOUTH TWO TIMES A DAY NEED ED Last Documented On 04/29/2018 3:09PM By KIRT LARSON MD ; [facility] Hydrocodone-Acetaminophen 10 -325MG Oral Tablet 03/25/2018 - 04/26/2018 Provider: KIRT LARSON MD Diagnosis: Low back pain One tablet twice a day Last Documented On 04/26/2018 6:05PM By KIRT LARSON MD ; [facility] Rizatriptan Benzoate 10 MG Oral Tablet 03/11/2018 - Provider: Diagnosis: Last Documented On 11/15/2023 11:22AM By Lizette MYERS ; [facility] Cyclobenzaprine HCl 10MG Ora l Tablet 03/11/2018 - 06/29/2018 Provider: KIRT Bermeo MD Diagnosis: TAKE 1 TABLET BY MOUTH TWICE A DAY NEEDED Last Documented On 06/29/2018 6:01PM By KIRT LARSON MD ; [facility] Armodafinil 150MG Oral Tablet 03/08/2018 - 03/13/2018 Provider: KIRT LARSON MD Diagnosis: One tablet at bed time Last Documented On 8 11:10AM By ASHER MYERS ; [facility] ALPRAZolam 0.5MG Oral Tablet 03/01/2018 - 03/31/2018 P rovider: KIRT LARSON MD Diagnosis: One tablet twice a day prn Last Documented On 8 11:36AM By KIRT LARSON MD ; [facility] Nuvigil 150MG Oral Tablet 03/01/2018 - 03/08/2018 Prov ider: KIRT LARSON MD Diagnosis: TAKE 1 TABLET BY MOUTH TWICE A DAY Last Documented On 03/08/2018 9:45PM By KIRT LARSON MD ; [facility] Hydrocodone-Acetaminophen 10 -325MG Oral Tablet 02/21/2018 - 03/25/2018 Provider: KIRT LARSON MD Diagnosis: Low back pain One tablet twice a day Last Documented On 03/25/2018 8:30PM By KIRT LARSON MD ; [facility] Armodafinil 250MG Oral Tablet 02/11/2018 - 06/06/2018 Provider: KIRT LARSON MD Diagnosis: TAKE ONE TABLET BY MOUTH DAILY Last Documented On 06/06/2018 6:55PM By KIRT LARSON MD ; [facility] Nuvigil 150MG Oral Tablet 01/30/2018 - 03/01/2018 Prov ider: KIRT LARSON MD Diagnosis: One tablet twice a day Last Documented On 8 11:00AM By KIRT LARSON MD ; [facility] Lunesta 3MG Oral Tablet 01/30/2018 - 04/29/2018 Provid er: KIRT LARSON MD Diagnosis: TAKE 1 TABLET BY MOUTH AT BEDTIME Last Documented On 04/29/2018 3:08PM By KIRT LARSON MD ; [facility] Cyclobenzaprine HCl 10MG Ora l Tablet 01/30/2018 - 03/11/2018 Provider: KIRT Bermeo MD Diagnosis: One tablet twice a day as needed Last Documented On 03/11/2018 2:16PM By KIRT LARSON MD ; [facility] Hydrocodone-Acetaminophen 10 -325MG Oral Tablet 01/23/2018 - 02/21/2018 Provider: KIRT LARSON MD Diagnosis: Low back pain One tablet twice a day Last Documented On 02/21/2018 1:23PM By KIRT LARSON MD ; [facility] Cyclobenzaprine HCl 10MG Ora l Tablet 01/03/2018 - 01/30/2018 Provider: KIRT Bermeo MD Diagnosis: One tablet twice a day as needed Last Documented On 01/30/2018 5:36PM By KIRT LARSON MD ; [facility] Imitrex 100MG Oral Tablet 01/03/2018 - 01/30/2018 Prov ider: KIRT LARSON MD Diagnosis: as directed 1 tab with onset of headache, 2nd tab in 2 hrs if needed. No more than 2 tabs in 24 hrs Last Documented On 01/30/2018 4:27PM By ASHER MYERS ; [facility] ALPRAZolam 0.5MG Oral Tablet 12/31/2017 - 03/01/2018 P rovider: KIRT LARSON MD Diagnosis: TAKE 1 TABLET BY MOUTH 3 TIMES A DAY Last Documented On 8 11:03AM By KIRT LARSON MD ; [facility] Hydrocodone-Acetaminophen 10 -325MG Oral Tablet 12/27/2017 - 01/23/2018 Provider: KIRT LARSON MD Diagnosis: Low back pain One tablet twice a day Last Documented On 01/23/2018 1:45PM By KIRT LARSON MD ; [facility] Hydrocodone-Acetaminophen 10 -325MG Oral Tablet 11/29/2017 - 12/27/2017 Provider: KIRT LARSON MD Diagnosis: Low back pain One tablet twice a day Last Documented On 12/27/2017 1:02PM By KIRT LARSON MD ; [facility] Armodafinil 250MG Oral Tablet 11/13/2017 - 02/11/2018 Provider: KIRT LARSON MD Diagnosis: One tablet daily Last Documented On 02/11/2018 6:22PM By KIRT LARSON MD ; [facility] Keflex 500MG Oral Capsule 11/08/2017 - 01/30/2018 Prov ider: KIRT LARSON MD Diagnosis: One tablet three times a day Last Documented On 01/30/2018 4:27PM By ASHER MYERS ; [facility] Lunesta 3MG Oral Tablet 11/03/2017 - 01/30/2018 Provid er: KIRT LARSON MD Diagnosis: TAKE 1 TABLET BY MOUTH AT BEDTIME Last Documented On 01/30/2018 5:37PM By KIRT LARSON MD ; [facility] ALPRAZolam 0.5MG Oral Tablet 11/03/2017 - 12/31/2017 P rovider: KIRT LARSON MD Diagnosis: TAKE 1 TABLET BY MOUTH 3 TIMES A DAY Last Documented On 12/31/2017 1:42PM By KIRT LARSON MD ; [facility] Hydrocodone-Acetaminophen 10 -325MG Oral Tablet 10/30/2017 - 11/29/2017 Provider: KIRT LARSON MD Diagnosis: Low back pain One tablet three times a day Last Documented On 11/29/2017 4:57PM By KIRT LARSON MD ; [facility] ProAir HFA 108 (90 Base)MCG/ACT Inhalation Aerosol Solution 10/22/2017 - 01/30/2018 Provider: KIRT Bermeo MD Diagnosis: 2 puff every 4 hours as needed. Last Documented On 01/30/2018 4:27PM By ASHER MYERS ; [facility] Cyclobenzaprine HCl 10MG Ora l Tablet 10/08/2017 - 01/30/2018 Provider: KIRT Bermeo MD Diagnosis: One tablet twice a day Last Documented On 01/30/2018 4:29PM By ASHER MYERS ; [facility] Nuvigil 250MG Oral Tablet 10/07/2017 - 01/30/2018 Prov ider: KIRT LARSON MD Diagnosis: One tablet daily Last Documented On 01/30/2018 4:28PM By ASHER MYERS ; [facility] Hydrocodone-Acetaminophen 10 -325MG Oral Tablet 09/26/2017 - 10/30/2017 Provider: KIRT LARSON MD Diagnosis: Low back pain One tablet three times a day Last Documented On 10/30/2017 1:07PM By KIRT LARSON MD ; [facility] Zoloft 100MG Oral Tablet 09/09/2017 - 01/30/2018 Provider: KIRT Bermeo MD Diagnosis: Adjustment disor avery with anxiety One tablet daily Last Documented On 01/30/2018 4:28PM By ASHER MYERS ; [facility] Cipro 500MG Oral Tablet 09/09/2017 - 01/30/2018 Provider: KIRT LARSON MD Diagnosis: Acute bronchitis , unspecified One tablet twice a day Last Documented On 01/30/2018 4:24PM By ASHER MYERS ; [facility] TraZODone HCl 100MG Oral Tablet 09/09/2017 - 01/30/2018 Provider: KIRT Bermeo MD Diagnosis: One tablet at bed time Last Documented On 01/30/2018 4:28PM By ASHER MYERS ; [facility] Gcmswutx-Izpnkfocx-Nvolkljx 0.1% Ophthalmic Suspension 08/19/2017 - 09/09/2017 Provider: IKRT LARSON MD Diagnosis: Chalazion left lower eyelid as directed 2 drops in left eye TID x 7-10 days Last Documented On 7 11:39AM By ASHER MYERS ; [facility] Zoloft 50MG Oral Tablet 08/19/2017 - 01/30/2018 Provider: KIRT Bermeo MD Diagnosis: Adjustment disor avery with anxiety One tablet at bed time Last Documented On 01/30/2018 4:28PM By ASHER MYERS ; [facility] Lasix 40MG Oral Tablet 08/19/2017 - 01/30/2018 Provider: KIRT Bermeo MD Diagnosis: Edema, unspecifi ed TAKE 1 TABLET BY MOUTH EVERY DAY NEEDED Last Documented On 01/30/2018 4:29PM By ASHER MYERS ; [facility] ALPRAZolam 0.5MG Oral Tablet 08/19/2017 - 11/03/2017 Provider: KIRT LARSON MD Diagnosis: Adjustment disor avery with anxiety One tablet three times a day Last Documented On 8 10:46PM By KIRT LARSON MD ; [facility] Hydrocodone-Acetaminophen 10 -325MG Oral Tablet 08/19/2017 - 09/25/2017 Provider: KIRT LARSON MD Diagnosis: Low back pain One tablet three times a day Last Documented On 09/26/2017 6:44PM By KIRT LARSON MD ; [facility] Nuvigil 250MG Oral Tablet 08/19/2017 - 10/07/2017 Prov ider: KIRT LARSON MD Diagnosis: TAKE 1 TABLET BY MOUTH EVERY DAY Last Documented On 10/07/2017 8:45PM By KIRT LARSON MD ; [facility] Cyclobenzaprine HCl 10MG Ora l Tablet 08/19/2017 - 10/08/2017 Provider: KIRT Bermeo MD Diagnosis: One tablet twice a day Last Documented On 10/08/2017 8:50PM By KIRT LARSON MD ; [facility] Nuvigil 250MG Oral Tablet 08/12/2017 - 08/19/2017 Prov ider: KIRT LARSON MD Diagnosis: TAKE 1 TABLET BY MOUTH EVERY DAY Last Documented On 7 11:35AM By KIRT LARSON MD ; [facility] Lunesta 3MG Oral Tablet 08/05/2017 - 11/03/2017 Provid er: KIRT LARSON MD Diagnosis: TAKE 1 TABLET BY MOUTH AT BEDTIME Last Documented On 8 10:47PM By KIRT LARSON MD ; [facility] TraZODone HCl 100MG Oral Tablet 07/16/2017 - 09/09/2017 Provider: KIRT Bermeo MD Diagnosis: One tablet at bed time Last Documented On 7 12:06PM By KIRT LARSON MD ; [facility] Cyclobenzaprine HCl 10MG Ora l Tablet 07/16/2017 - 08/19/2017 Provider: KIRT Bermeo MD Diagnosis: One tablet twice a day Last Documented On 7 11:34AM By KIRT LARSON MD ; [facility] Nuvigil 250MG Oral Tablet 07/15/2017 - 08/12/2017 Prov ider: KRIT LARSON MD Diagnosis: TAKE 1 TABLET BY MOUTH EVERY DAY Last Documented On 08/12/2017 9:50PM By KIRT LARSON MD ; [facility] Hydrocodone-Acetaminophen 10 -325MG Oral Tablet 07/11/2017 - 08/19/2017 Provider: KIRT LARSON MD Diagnosis: Low back pain One tablet three times a day Last Documented On 7 11:35AM By KIRT LARSON MD ; [facility] ALPRAZolam 0.5MG Oral Tablet 07/09/2017 - 08/19/2017 Provider: KIRT LARSON MD Diagnosis: Adjustment disor avery with anxiety One tablet three times a day Last Documented On 7 11:36AM By KIRT LARSON MD ; [facility] TraMADol HCl 50MG Oral Tablet 06/18/2017 - 11/06/2019 Provider: KIRT LARSON MD Diagnosis: Sciatica, right side One tablet three times a day prn Last Documented On 0 12:11PM By KIRT LARSON MD ; [facility] ALPRAZolam 0.5MG Oral Tablet 06/18/2017 - 07/08/2017 Provider: KIRT LARSON MD Diagnosis: Adjustment disor avery with anxiety One tablet three times a day Last Documented On 7 10:12AM By KIRT LARSON MD ; [facility] Nuvigil 250MG Oral Tablet 06/11/2017 - 07/15/2017 Provider: KIRT Bermeo MD Diagnosis: Circadian rhythm sleep disorder, shift work type TAKE 1 TABLET EVERY DAY Last Documented On 07/15/2017 1:33PM By KIRT LARSON MD ; [facility] Hydrocodone-Acetaminophen 10 -325MG Oral Tablet 06/11/2017 - 07/11/2017 Provider: KIRT LARSON MD Diagnosis: Low back pain One tablet three times a day Last Documented On 07/11/2017 5:16PM By KIRT LARSON MD ; [facility] Lasix 40MG Oral Tablet 06/04/2017 - 08/19/2017 Provider: KIRT Bermeo MD Diagnosis: Edema, unspecifi ed TAKE 1 TABLET BY MOUTH EVERY DAY NEEDED Last Documented On 7 11:36AM By KIRT LARSON MD ; [facility] Nuvigil 250MG Oral Tablet 05/21/2017 - 06/11/2017 Provider: AVA LOCKETT [facility] Diagnosis: Circadian rhythm sleep disorder, shift work type TAKE 1 TABLET BY MOUTH EVERY DAY Last Documented On 06/11/2017 5:54PM By KIRT LARSON MD ; [facility] Hydrocodone-Acetaminophen 10 -325MG Oral Tablet 05/13/2017 - 06/11/2017 Provider: AVA LOCKETT [facility] Diagnosis: Low back pain One tablet three times a day prn Last Documented On 06/11/2017 5:49PM By KIRT LARSON MD ; [facility] TraZODone HCl 100MG Oral Tablet 05/08/2017 - 07/16/2017 Provider: KIRT Bermeo MD Diagnosis: TAKE 1 TABLET BY MOUTH AT BEDTIME Last Documented On 07/16/2017 9:40PM By KIRT LARSON MD ; [facility] Flonase Allergy Relief 50MCG/ACT Nasal Suspension 04/23/2017 - 08/19/2017 Provider: KIRT LARSON MD Diagnosis: Unspecified Eust achian tube disorder, bilateral 2 sprays each nostril daily Last Documented On 7 11:06AM By ASHER MYERS ; [facility] Claritin 10MG Oral Tablet 04/23/2017 - 08/19/2017 Provider: KIRT LARSON MD Diagnosis: Unspecified Eust achian tube disorder, bilateral One tablet daily Last Documented On 7 11:05AM By ASHER MYERS ; [facility] Zofran 8MG Oral Tablet 04/23/2017 - 08/19/2017 Provider: KIRT LARSON MD Diagnosis: Nausea with vomi ting, unspecified One tablet three times a day prn Last Documented On 7 11:06AM By ASHER MYERS ; [facility] Lunesta 3MG Oral Tablet 04/23/2017 - 08/05/2017 Provid er: KIRT LARSON MD Diagnosis: Primary insomnia One tablet at bed time Last Documented On 08/05/2017 2:31PM By KIRT LARSON MD ; [facility] ALPRAZolam 0.5MG Oral Tablet 04/23/2017 - 06/18/2017 Provider: KIRT LARSON MD Diagnosis: Adjustment disor avery with anxiety One tablet twice a day Last Documented On 06/18/2017 1:35PM By KIRT LARSON MD ; [facility] HydroCHLOROthiazide 25MG Ora l Tablet 04/18/2017 - 08/19/2017 Provider: KIRT LARSON MD Diagnosis: TAKE 1 TABLET BY MOUTH ONCE DAILY NEEDED FOR SWELLING Last Documented On 7 11:06AM By ASHER WAY [facility] ; [facility] Vimovo 500-20MG Oral Tablet, enteric coated 04/17/2017 - 08/19/2017 Provider: PRISCA JIMENEZP-C Diagnosis: Sciatica, right side One tablet twice a day Last Documented On 7 11:06AM By ASHER WAY Gretchen ; [facility] PredniSONE 20MG Oral Tablet 04/17/2017 - 08/19/2017 Provider: PRISCA JIMENEZP-[place] Diagnosis: Sciatica, right side 2 tab po qd x 4 then 1 tab po qd x 4 Last Documented On 7 11:07AM By ASHER WAY Gretchen ; [facility] Augmentin 875-125MG Oral Tablet 04/17/2017 - 08/19/2017 Provider: PRISCA [facility] [facility] Diagnosis: Acute sinusitis, unspecified One tablet twice a day Last Documented On 7 11:05AM By ASHER WAY Gretchen ; [facility] Hydrocodone-Acetaminophen 10 -325MG Oral Tablet 04/15/2017 - 05/13/2017 Provider: KIRT LARSON MD Diagnosis: Low back pain One tablet three times a day Last Documented On 7 4:46PM By AVA LOCKETT [facility] ; [facility] Lasix 40MG Oral Tablet 03/22/2017 - 06/04/2017 Provider: KIRT Bermeo MD Diagnosis: Edema, unspecifi ed One tablet daily as needed Last Documented On 06/04/2017 8:48AM By KIRT LARSON MD ; [facility] HydroCHLOROthiazide 25MG Ora l Tablet 03/21/2017 - 04/18/2017 Provider: KIRT LARSON MD Diagnosis: One tablet daily as needed for swelling Last Documented On 04/18/2017 2:08PM By KIRT LARSON MD ; [facility] Hydrocodone-Acetaminophen 10 -325MG Oral Tablet 03/15/2017 - 04/15/2017 Provider: KIRT LARSON MD Diagnosis: Low back pain One tablet three times a day Last Documented On 04/15/2017 5:36PM By KIRT LARSON MD ; [facility] Cyclobenzaprine HCl 10MG Ora l Tablet 03/14/2017 - 07/16/2017 Provider: KIRT Bermeo MD Diagnosis: One tablet twice a day Last Documented On 07/16/2017 9:40PM By KIRT LARSON MD ; [facility] TraZODone HCl 100MG Oral Tablet 03/06/2017 - 05/08/2017 Provider: KIRT Bermeo MD Diagnosis: One tablet at bed time Last Documented On 05/08/2017 3:43PM By KIRT LARSON MD ; [facility] ALPRAZolam 0.5MG Oral Tablet 02/18/2017 - 04/23/2017 Provider: KIRT LARSON MD Diagnosis: Adjustment disor avery with anxiety One tablet twice a day Last Documented On 04/23/2017 9:10AM By KIRT LARSON MD ; [facility] TraMADol HCl 50MG Oral Tablet 02/18/2017 - 06/18/2017 Provider: KIRT LARSON MD Diagnosis: Sciatica, right side TAKE 1 TABLET BY MOUTH FOUR TIMES DAILY NEEDED Last Documented On 06/18/2017 8:56PM By KIRT LARSON MD ; [facility] Nuvigil 250MG Oral Tablet 02/18/2017 - 05/21/2017 Provider: KIRT Bermeo MD Diagnosis: Circadian rhythm sleep disorder, shift work type TAKE 1 TABLET BY MOUTH EVERY DAY Last Documented On 7 8:13AM By AVA LOCKETT [facility] ; [facility] Belsomra 20MG Oral Tablet 02/14/2017 - 08/19/2017 Provider: KIRT LARSON MD Diagnosis: Psychophysiologi c insomnia One tablet at bed time Last Documented On 7 11:05AM By ASHER MYERS ; [facility] Zofran 4MG Oral Tablet 02/11/2017 - 08/19/2017 Provide r: KIRT LARSON MD Diagnosis: Take one four times a day as needed Last Documented On 7 11:06AM By ASHER MYERS ; [facility] TraZODone HCl 100MG Oral Tablet 02/01/2017 - 02/18/2017 Provider: KIRT Bermeo MD Diagnosis: Primary insomnia One tablet at bed time Last Documented On 02/18/2017 9:31AM By ASHER MYERS ; [facility] HydrOXYzine HCl 50MG Oral Tablet 02/01/2017 - 02/18/2017 Provider: KIRT LARSON MD Diagnosis: Adjustment disor avery with anxiety One tablet three times a day as needed. Last Documented On 02/18/2017 9:31AM By ASHER MYERS ; [facility] Hydrocodone-Acetaminophen 10 -325MG Oral Tablet 02/01/2017 - 03/15/2017 Provider: KIRT LARSON MD Diagnosis: Low back pain One tablet three times a day Last Documented On 03/15/2017 1:27PM By KIRT LARSON MD ; [facility] Soma 350MG Oral Tablet 01/11/2017 - 02/18/2017 Provide r: KIRT LARSON MD Diagnosis: One tablet twice a day as needed Last Documented On 02/18/2017 9:31AM By ASHER MYERS ; [facility] Promethazine HCl 25MG Oral Tablet 01/11/2017 - 02/01/2017 Provider: KIRT Bermeo MD Diagnosis: Take one four times a day as needed Last Documented On 02/01/2017 3:48PM By ASHER MYERS ; [facility] Fiorinal 50-325-40MG Oral Capsule, conventional 01/11/2017 - 02/18/2017 Provider: KIRT DOUGHERTY MD Diagnosis: Take one four times a day as needed Last Documented On 02/18/2017 9:31AM By ASHER MYERS ; [facility] ALPRAZolam 1MG Oral Tablet 01/09/2017 - 08/19/2017 Provider: KIRT LARSON MD Diagnosis: Adjustment disor avery with anxiety One tablet three times a day as needed - use sparingliy Last Documented On 7 11:05AM By ASHER MYERS ; [facility] Guaifenesin-Codeine 100-10MG /5ML Oral Syrup 01/04/2017 - 02/01/2017 Provider: KIRT LARSON MD Diagnosis: as directed 1 tsp po q 4 hours as needed. Last Documented On 02/01/2017 3:47PM By ASHER MYERS ; [facility] Lidocaine Viscous 2% Mouth/Throat Solution 01/03/2017 - 02/01/2017 Provider: KIRT DOUGHERTY MD Diagnosis: as directed 1 tsp of mixture every 2 hours as ne eded. Last Documented On 02/01/2017 3:47PM By ASHER MYERS ; [facility] Amoxicillin 500MG Oral Capsule, conventional 01/03/2017 - 02/01/2017 Provider: KIRT DOUGHERTY MD Diagnosis: One tablet three times a day Last Documented On 02/01/2017 3:47PM By ASHER MYERS ; [facility] TraZODone HCl 50MG Oral Tablet 12/28/2016 - 02/18/2017 Provider: KIRT LARSON MD Diagnosis: One tablet at bed time Last Documented On 02/18/2017 9:31AM By ASHER MYERS ; [facility] Hydrocodone-Acetaminophen 10 -325MG Oral Tablet 12/20/2016 - 02/01/2017 Provider: KIRT LARSON MD Diagnosis: One tablet three times a day Last Documented On 02/01/2017 4:04PM By KIRT LARSON MD ; [facility] ALPRAZolam 1MG Oral Tablet 12/11/2016 - 01/09/2017 Provider: KIRT LARSON MD Diagnosis: Adjustment disor avery with anxiety TAKE 1 TABLET BY MOUTH 3 TIMES A DAY Last Documented On 7 12:51PM By KIRT LARSON MD ; [facility] Hydrocodone-Acetaminophen 10 -325MG Oral Tablet 11/21/2016 - 12/20/2016 Provider: KIRT LARSON MD Diagnosis: One tablet three times a day as needed. Last Documented On 12/20/2016 1:32PM By KIRT LARSON MD ; [facility] Nuvigil 250MG Oral Tablet 11/20/2016 - 02/18/2017 Provider: KIRT Bermeo MD Diagnosis: Circadian rhythm sleep disorder, shift work type TAKE 1 TABLET BY MOUTH EVERY DAY Last Documented On 02/18/2017 7:02PM By KIRT LARSON MD ; [facility] TraMADol HCl 50 MG Tablet 11/08/2016 - 02/18/2017 Provider: KIRT LARSON MD Diagnosis: Sciatica, right side TAKE 1 TABLET BY MOUTH FOUR TIMES DAILY NEEDED Last Documented On 02/18/2017 7:02PM By KIRT LARSON MD ; [facility] Fiorinal 50-325-40 MG Capsule 11/08/2016 - 01/11/2017 Provider: KIRT LARSON MD Diagnosis: Take one four times a day as needed Last Documented On 01/11/2017 4:02PM By KIRT LARSON MD ; [facility] Promethazine HCl 25 MG Tablet 11/08/2016 - 01/11/2017 Provider: KIRT LARSON MD Diagnosis: Take one four times a day as needed Last Documented On 01/11/2017 4:02PM By KIRT LARSON MD ; [facility] Hydrocodone-Acetaminophen 10 -325 MG Tablet 10/23/2016 - 02/01/2017 Provider: KIRT LARSON MD Diagnosis: Sciatica, right side One tablet three times a day Last Documented On 02/01/2017 3:47PM By ASHER MYERS ; [facility] Zolpidem Tartrate 10 MG Tablet 10/04/2016 - 08/19/2017 Provider: KIRT LARSON MD Diagnosis: Cough TAKE 1 TABLET BY MOUTH EVERY NIGHT AT BEDTIME NEEDED Last Documented On 7 11:06AM By ASHER MYERS ; [facility] GuaiFENesin AC 100-10 MG/5ML Syrup 10/03/2016 - 02/01/2017 Provider: PRISCA [facility] Diagnosis: Cough 10 ml po q6h prn dispense 4 oz Last Documented On 02/01/2017 3:47PM By ASHER MYERS ; [facility] Cephalexin 500 MG Capsule 09/28/2016 - 02/01/2017 Provider: PRISCA ASCENCIO Diagnosis: Carbuncle of lef t hand One tablet twice a day Last Documented On 02/01/2017 3:47PM By ASHER MYERS ; [facility] GuaiFENesin AC 100-10 MG/5ML Syrup 09/26/2016 - 10/03/2016 Provider: PRISCA [facility] Diagnosis: Cough 10 ml po q6h prn for cough dispense 6 0z Last Documented On 6 3:31PM By Prisca ASCENCIO ; [facility] Bactrim DS 800-160 MG Tablet 09/26/2016 - 02/01/2017 Provider: PRISCA JIMENEZP-C Diagnosis: Carbuncle of lef t hand One tablet twice a day Last Documented On 02/01/2017 3:47PM By ASHER MYERS ; [facility] Hydrocodone-Acetaminophen 10 -325 MG Tablet 09/24/2016 - 10/23/2016 Provider: KIRT LARSON MD Diagnosis: Sciatica, right side One tablet three times a day Last Documented On 10/23/2016 5:27PM By KIRT LARSON MD ; [facility] Soma 350 MG Tablet 09/18/2016 - 01/11/2017 Provider: KIRT LARSON MD Diagnosis: One tablet twice a day as needed Last Documented On 01/11/2017 4:03PM By KIRT LARSON MD ; [facility] Augmentin 875-125 MG Tablet 08/23/2016 - 09/26/2016 Provider: KIRT LARSON MD Diagnosis: Streptococcal pharyngitis One tablet twice a day Last Documented On 09/26/2016 3:51PM By ENRRIQUE MYERS ; [facility] Flovent HFA 110 MCG/ACT Aerosol 08/23/2016 - 02/18/2017 Provider: KIRT LARSON MD Diagnosis: Simple chronic bronchitis 2 puff twice daily Last Documented On 02/18/2017 9:32AM By ASHER MYERS ; [facility] Zofran 4 MG Tablet 08/23/2016 - 09/26/2016 Provider: KIRT LARSON MD Diagnosis: Nausea with vomi ting, unspecified Take one four times a day as needed Last Documented On 09/26/2016 3:51PM By ENRRIQUE MYERS ; [facility] ProAir HFA 108 (90 Base) MCG/ACT Aerosol, solution 08/23/2016 - 02/18/2017 Provider: KIRT LARSON MD Diagnosis: Simple chronic bronchitis 2 puff q 4 hours as needed o nly. Call office if using more than 2-3 times per week Last Documented On 02/18/2017 9:32AM By ASHER MYERS ; [facility] Nuvigil 250 MG Tablet 08/23/2016 - 11/20/2016 Provider: KIRT Bermeo MD Diagnosis: Circadian rhythm sleep disorder, shift work type One tablet daily Last Documented On 7 11:04AM By KIRT LARSON MD ; [facility] AmLODIPine Besylate 5 MG Tablet 08/23/2016 - 02/18/2017 Provider: KIRT LARSON MD Diagnosis: Essential (prima ry) hypertension One tablet daily Last Documented On 02/18/2017 9:32AM By ASHER MYERS ; [facility] ALPRAZolam 1 MG Tablet 08/23/2016 - 12/11/2016 Provider: KIRT LARSON MD Diagnosis: Adjustment disor avery with anxiety One tablet three times a day Last Documented On 12/11/2016 1:27PM By KIRT LARSON MD ; [facility] Zolpidem Tartrate 10 MG Tablet 08/23/2016 - 02/01/2017 Provider: KIRT Bermeo MD Diagnosis: Primary insomnia One tablet at bed time Last Documented On 02/01/2017 3:48PM By ASHER MYERS ; [facility] Hydrocodone-Acetaminophen 10 -325 MG Tablet 08/23/2016 - 09/24/2016 Provider: KIRT LARSON MD Diagnosis: Sciatica, right side One tablet three times a day Last Documented On 09/24/2016 2:16PM By KIRT LARSON MD ; [facility] Promethazine HCl 25 MG Tablet 08/21/2016 - 09/26/2016 Provider: KIRT LARSON MD Diagnosis: One tablet three times per day as needed. Last Documented On 09/26/2016 3:51PM By ENRRIQUE MYERS ; [facility] ALPRAZolam 1 MG Tablet 08/08/2016 - 08/23/2016 Provide r: KIRT LARSON MD Diagnosis: One tablet three times a day Last Documented On 08/23/2016 3:18PM By KIRT LARSON MD ; [facility] ALPRAZolam 0.25 MG Tablet 08/01/2016 - 08/23/2016 Provider: KIRT LARSON MD Diagnosis: Adjustment disor avery with anxiety Take one four times a day as needed Last Documented On 08/23/2016 2:45PM By ASHER MYERS ; [facility] Zolpidem Tartrate 10 MG Tablet 08/01/2016 - 08/23/2016 Provider: KIRT Bermeo MD Diagnosis: Primary insomnia One tablet at bed time Last Documented On 08/23/2016 3:18PM By KIRT LARSON MD ; [facility] TraMADol HCl 50 MG Tablet 08/01/2016 - 11/08/2016 Provider: KIRT LARSON MD Diagnosis: Sciatica, right side TAKE 1 TABLET BY MOUTH FOUR TIMES DAILY NEEDED Last Documented On 11/08/2016 4:50PM By KIRT LARSON MD ; [facility] AmLODIPine Besylate 5 MG Tablet 08/01/2016 - 08/23/2016 Provider: KIRT LARSON MD Diagnosis: Essential (prima ry) hypertension One tablet daily Last Documented On 08/23/2016 3:18PM By KIRT LAROSN MD ; [facility] Hydrocodone-Acetaminophen 10 -325 MG Tablet 07/25/2016 - 08/23/2016 Provider: KIRT LARSON MD Diagnosis: Sciatica, right side One tablet three times a day Last Documented On 08/23/2016 3:17PM By KIRT LARSON MD ; [facility] Nuvigil 250 MG Tablet 07/25/2016 - 08/23/2016 Provider: KIRT Bermeo MD Diagnosis: Circadian rhythm sleep disorder, shift work type One tablet daily Last Documented On 08/23/2016 3:19PM By KIRT LARSON MD ; [facility] ALPRAZolam 0.5 MG Tablet 07/12/2016 - 08/23/2016 Provi avery: KIRT LARSON MD Diagnosis: Take one four times a day as needed Last Documented On 08/23/2016 2:45PM By ASHER MYERS ; [facility] Remeron 45 MG Tablet 07/09/2016 - 08/01/2016 Provider: KIRT LARSON MD Diagnosis: Adjustment disor avery with anxiety TAKE 1 TABLET BY MOUTH AT BEDTIME Last Documented On 08/01/2016 3:12PM By ASHER MYERS ; [facility] Zolpidem Tartrate 10 MG Tablet 06/12/2016 - 08/01/2016 Provider: KIRT Bermeo MD Diagnosis: Primary insomnia One tablet at bed time Last Documented On 08/01/2016 3:52PM By KIRT LARSON MD ; [facility] Hydrocodone-Acetaminophen 10 -325 MG Tablet 06/01/2016 - 07/25/2016 Provider: KIRT LARSON MD Diagnosis: Sciatica, right side One tablet three times a day Last Documented On 07/25/2016 4:08PM By KIRT LARSON MD ; [facility] Remeron 45 MG Tablet 06/01/2016 - 07/09/2016 Provider: KIRT LARSON MD Diagnosis: Adjustment disor avery with anxiety TAKE 1 TABLET BY MOUTH AT BEDTIME Last Documented On 07/09/2016 8:31AM By KIRT LARSON MD ; [facility] ALPRAZolam 1 MG Tablet 06/01/2016 - 08/01/2016 Provider: KIRT LARSON MD Diagnosis: Adjustment disor avery with anxiety One tablet three times a day Last Documented On 08/01/2016 3:11PM By ASHER MYERS ; [facility] AmLODIPine Besylate 5 MG Tablet 05/16/2016 - 08/01/2016 Provider: KIRT LARSON MD Diagnosis: Essential (prima ry) hypertension One tablet daily Last Documented On 08/01/2016 3:51PM By KIRT LARSON MD ; [facility] TraMADol HCl 50 MG Tablet 05/16/2016 - 08/01/2016 Provider: KIRT LARSON MD Diagnosis: Sciatica, right side TAKE 1 TABLET BY MOUTH FOUR TIMES DAILY NEEDED Last Documented On 08/01/2016 3:51PM By KIRT LARSON MD ; [facility] Cyclobenzaprine HCl 10 MG Tablet 05/16/2016 - 08/01/2016 Provider: KIRT LARSON MD Diagnosis: Sciatica, right side One tablet twice a day Last Documented On 08/01/2016 3:12PM By ASHER MYERS ; [facility] Gabapentin 300 MG Capsule, conventional 05/16/2016 - 08/01/2016 Provider: KIRT LARSON MD Diagnosis: Sciatica, right side One tablet three times a day Last Documented On 08/01/2016 3:13PM By ASHER MYERS ; [facility] Hydrocodone-Acetaminophen 10 -325 MG Tablet 05/16/2016 - 06/01/2016 Provider: KIRT LARSON MD Diagnosis: Sciatica, right side One tablet three times a day Last Documented On 06/01/2016 3:01PM By KIRT LARSON MD ; [facility] Nabumetone 750 MG Tablet 05/16/2016 - 08/01/2016 Provider: KIRT LARSON MD Diagnosis: Sciatica, right side One tablet twice a day Last Documented On 08/01/2016 3:12PM By ASHER MYERS ; [facility] Nuvigil 250 MG Tablet 05/16/2016 - 07/25/2016 Provider: KIRT Bermeo MD Diagnosis: Circadian rhythm sleep disorder, shift work type One tablet daily Last Documented On 07/25/2016 4:07PM By KIRT LARSON MD ; [facility] Anoro Ellipta 62.5-25 MCG/INH Aerosol Powder Breath Activated 05/16/2016 - 08/01/2016 Provider: KIRT LARSON MD Diagnosis: Simple chronic bronchitis One tablet daily one inhalation daily Last Documented On 08/01/2016 3:12PM By ASHER MYERS ; [facility] ProAir HFA 108 (90 Base) MCG/ACT Aerosol, solution 05/16/2016 - 08/23/2016 Provider: KIRT LARSON MD Diagnosis: Simple chronic bronchitis 2 puff q 4 hours as needed o nly. Call office if using more than 2-3 times per week Last Documented On 08/23/2016 3:19PM By KIRT LARSON MD ; [facility] ALPRAZolam 1 MG Tablet 05/16/2016 - 06/01/2016 Provider: KIRT LARSON MD Diagnosis: Adjustment disor avery with anxiety One tablet three times a day Last Documented On 06/01/2016 3:01PM By KIRT LARSON MD ; [facility] Zolpidem Tartrate 10 MG Tablet 05/16/2016 - 06/12/2016 Provider: KIRT Bermeo MD Diagnosis: Primary insomnia One tablet at bed time Last Documented On 6 10:26AM By KIRT LARSON MD ; [facility] Zolpidem Tartrate 10 MG Tablet 05/14/2016 - 05/16/2016 Provider: KIRT Bermeo MD Diagnosis: Primary insomnia One tablet at bed time Last Documented On 05/16/2016 3:04PM By KIRT LARSON MD ; [facility] ALPRAZolam 1 MG Tablet 05/02/2016 - 05/16/2016 Provider: KIRT LARSON MD Diagnosis: Adjustment disor avery with anxiety One tablet three times a day Last Documented On 05/16/2016 3:04PM By KIRT LARSON MD ; [facility] Remeron 45 MG Tablet 04/30/2016 - 06/01/2016 Provider: KIRT LARSON MD Diagnosis: Adjustment disor avery with anxiety TAKE 1 TABLET BY MOUTH AT BEDTIME Last Documented On 06/01/2016 3:01PM By KIRT LARSON MD ; [facility] Cyclobenzaprine HCl 10 MG Tablet 04/26/2016 - 05/16/2016 Provider: KIRT LARSON MD Diagnosis: Sciatica, right side One tablet twice a day Last Documented On 05/16/2016 3:06PM By KIRT LARSON MD ; [facility] Hydrocodone-Acetaminophen 10 -325 MG Tablet 04/23/2016 - 05/16/2016 Provider: KIRT LARSON MD Diagnosis: Sciatica, right side One tablet three times a day Last Documented On 05/16/2016 3:05PM By KIRT LARSON MD ; [facility] BusPIRone HCl 15 MG Tablet 04/18/2016 - 05/16/2016 Pro vider: Diagnosis: Called into her -WR. sm Last Documented On 05/16/2016 2:46PM By ENRRIQUE MYERS ; [facility] Remeron 45 MG Tablet 04/04/2016 - 04/30/2016 Provider: KIRT LARSON MD Diagnosis: Adjustment disor avery with anxiety One tablet at bed time Last Documented On 04/30/2016 9:33AM By KIRT LARSON MD ; [facility] Zolpidem Tartrate 10 MG Tablet 04/04/2016 - 05/14/2016 Provider: KIRT Bermeo MD Diagnosis: Primary insomnia One tablet at bed time Last Documented On 05/14/2016 1:18PM By KIRT LARSON MD ; [facility] AmLODIPine Besylate 5 MG Tablet 04/03/2016 - 05/16/2016 Provider: KIRT LARSON MD Diagnosis: Essential (prima ry) hypertension One tablet daily Last Documented On 05/16/2016 3:06PM By KIRT LARSON MD ; [facility] AmLODIPine Besylate 5 MG Tablet 03/29/2016 - 04/03/2016 Provider: KIRT LARSON MD Diagnosis: Essential (prima ry) hypertension One tablet daily Last Documented On 04/03/2016 1:09PM By KIRT LARSON MD ; [facility] Hydrocodone-Acetaminophen 10 -325 MG Tablet 03/27/2016 - 04/23/2016 Provider: KRIT LARSON MD Diagnosis: Sciatica, right side One tablet three times a day Last Documented On 6 10:51AM By KIRT LARSON MD ; [facility] Chantix Continuing Month Ab 1 MG Tablet 03/27/2016 - 05/16/2016 Provider: KIRT Bermeo MD Diagnosis: Tobacco use One tablet twice a day Last Documented On 05/16/2016 2:46PM By ENRRIQUE MYERS ; [facility] TraMADol HCl 50 MG Tablet 03/27/2016 - 05/16/2016 Prov ider: KIRT LARSON MD Diagnosis: TAKE 1 TABLET BY MOUTH FOUR TIMES DAILY NEEDE D Last Documented On 05/16/2016 3:06PM By KIRT LARSON MD ; [facility] ALPRAZolam 1 MG Tablet 02/29/2016 - 05/02/2016 Provider: KIRT LARSON MD Diagnosis: Adjustment disor avery with anxiety One tablet three times a day Last Documented On 05/02/2016 9:44AM By KIRT LARSON MD ; [facility] Belsomra 20 MG Tablet 02/29/2016 - 05/16/2016 Provider : KIRT LARSON MD Diagnosis: Primary insomnia One tablet at bed time Last Documented On 05/16/2016 2:46PM By ENRRIQUE MYERS ; [facility] Nuvigil 250 MG Tablet 02/29/2016 - 05/16/2016 Provider: KIRT Bermeo MD Diagnosis: Circadian rhythm sleep disorder, shift work type One tablet daily Last Documented On 05/16/2016 3:05PM By KIRT LARSON MD ; [facility] Belviq 10 MG Tablet 02/29/2016 - 05/16/2016 Provider: KIRT LARSON MD Diagnosis: Overweight One tablet twice a day Last Documented On 05/16/2016 2:46PM By ENRRIQUE MYERS ; [facility] Chantix Starting Month Ab 0.5 MG X 11 & 1 MG X 42 Tablet 02/29/2016 - 03/27/2016 Provider: KIRT Bermeo MD Diagnosis: Tobacco use per packet instructions Last Documented On 03/27/2016 3:52PM By KIRT LARSON MD ; [facility] Cipro 500 MG Tablet 02/29/2016 - 04/04/2016 Provider: KIRT LARSON MD Diagnosis: Acute maxillary sinusitis, unspecified One tablet twice a day Last Documented On 04/04/2016 3:44PM By ASHER MYERS ; [facility] Remeron 15 MG Tablet 02/29/2016 - 05/16/2016 Provider: KIRT LARSON MD Diagnosis: Primary insomnia One tablet at bed time Last Documented On 05/16/2016 2:46PM By ENRRIQUE MYERS ; [facility] TraMADol HCl 50 MG Tablet 02/24/2016 - 03/27/2016 Prov ider: KIRT LARSON MD Diagnosis: Take one four times a day as needed Last Documented On 03/27/2016 3:48PM By KIRT LARSON MD ; [facility] Hydrocodone-Acetaminophen 10 -325 MG Tablet 02/24/2016 - 03/27/2016 Provider: KIRT LARSON MD Diagnosis: Sciatica, right side One tablet three times a day Last Documented On 03/27/2016 5:30PM By KIRT LARSON MD ; [facility] Zolpidem Tartrate 10 MG Tablet 02/13/2016 - 04/04/2016 Provider: KIRT Bermeo MD Diagnosis: Primary insomnia One tablet at bed time Last Documented On 04/04/2016 4:20PM By KIRT LARSON MD ; [facility] Belsomra 10 MG Tablet 01/31/2016 - 02/16/2016 Provider : KIRT LARSON MD Diagnosis: One tablet at bed time Last Documented On 6 10:45AM By ASHER MYERS ; [facility] Gabapentin 300 MG Capsule, conventional 01/25/2016 - 05/16/2016 Provider: KIRT LARSON MD Diagnosis: Sciatica, right side One tablet three times a day Last Documented On 05/16/2016 3:05PM By KIRT LARSON MD ; [facility] Nabumetone 750 MG Tablet 01/25/2016 - 05/16/2016 Provider: KIRT LARSON MD Diagnosis: Sciatica, right side One tablet twice a day Last Documented On 05/16/2016 3:05PM By KIRT LARSON MD ; [facility] Anoro Ellipta 62.5-25 MCG/INH Aerosol Powder Breath Activated 01/25/2016 - 05/16/2016 Provider: KIRT LARSON MD Diagnosis: Simple chronic bronchitis One tablet daily one inhalation daily Last Documented On 05/16/2016 3:04PM By KIRT LARSON MD ; [facility] AmLODIPine Besylate 5 MG Tablet 01/25/2016 - 03/29/2016 Provider: KIRT LARSON MD Diagnosis: Essential (prima ry) hypertension One tablet daily Last Documented On 03/29/2016 4:25PM By KIRT LARSON MD ; [facility] Zolpidem Tartrate 10 MG Tablet 01/25/2016 - 02/13/2016 Provider: KIRT Bermeo MD Diagnosis: Primary insomnia One tablet at bed time Last Documented On 02/13/2016 4:56PM By KIRT LARSON MD ; [facility] ProAir HFA 108 (90 Base) MCG/ACT Aerosol, solution 01/25/2016 - 05/16/2016 Provider: KIRT LARSON MD Diagnosis: Simple chronic bronchitis 2 puff q 4 hours as needed o nly. Call office if using more than 2-3 times per week Last Documented On 05/16/2016 3:04PM By KIRT LARSON MD ; [facility] Nuvigil 150 MG Tablet 01/25/2016 - 05/16/2016 Provider : KIRT LARSON MD Diagnosis: One tablet daily Last Documented On 05/16/2016 2:47PM By ENRRIQUE MYERS ; [facility] Hydrocodone-Acetaminophen 10 -325 MG Tablet 01/25/2016 - 02/24/2016 Provider: KIRT LARSON MD Diagnosis: Sciatica, right side One tablet three times a day Last Documented On 02/24/2016 4:11PM By KIRT LARSON MD ; [facility] Cyclobenzaprine HCl 10 MG Tablet 01/25/2016 - 04/26/2016 Provider: KIRT LARSON MD Diagnosis: Sciatica, right side One tablet twice a day Last Documented On 6 11:08AM By KIRT LARSON MD ; [facility] ALPRAZolam 0.5 MG Tablet 01/25/2016 - 05/16/2016 Provider: KIRT LARSON MD Diagnosis: Adjustment disor avery with anxiety Take one four times a day as needed Last Documented On 05/16/2016 2:46PM By ENRRIQUE MYERS ; [facility] Ultram 50 MG Tablet 12/30/2015 - 01/25/2016 Provider: KIRT LARSON MD Diagnosis: TAKE 1 TO 2 TABLETS BY MOUTH FOUR TIMES DAILY NEEDED Last Documented On 01/25/2016 3:50PM By ASHER MYERS ; [facility] Hydrocodone-Acetaminophen 10 -325 MG Tablet 12/14/2015 - 01/25/2016 Provider: KIRT LARSON MD Diagnosis: Sciatica, right side One tablet three times a day Last Documented On 01/25/2016 4:35PM By KIRT LARSON MD ; [facility] Gabapentin 300 MG Capsule 12/14/2015 - 01/25/2016 Provider: KIRT LARSON MD Diagnosis: Sciatica, right side One tablet at bed time Last Documented On 01/25/2016 4:35PM By KIRT LARSON MD ; [facility] Cyclobenzaprine HCl 10 MG Tablet 12/14/2015 - 01/25/2016 Provider: KIRT LARSON MD Diagnosis: Sciatica, right side One tablet twice a day Last Documented On 01/25/2016 4:35PM By KIRT LARSON MD ; [facility] Zolpidem Tartrate 10 MG Tablet 12/14/2015 - 01/25/2016 Provider: KIRT Bermeo MD Diagnosis: Primary insomnia One tablet at bed time Last Documented On 01/25/2016 4:36PM By KIRT LARSON MD ; [facility] Augmentin 875-125 MG Tablet 12/14/2015 - 01/25/2016 Provider: KIRT LARSON MD Diagnosis: Acute pharyngiti s, unspecified One tablet twice a day Last Documented On 01/25/2016 3:50PM By ASHER MYERS ; [facility] Nabumetone 750 MG Tablet 12/14/2015 - 01/25/2016 Provider: KIRT LARSON MD Diagnosis: Sciatica, right side One tablet twice a day Last Documented On 01/25/2016 4:35PM By KIRT LARSON MD ; [facility] ALPRAZolam 0.5 MG Tablet 12/06/2015 - 01/25/2016 Provider: KIRT LARSON MD Diagnosis: Adjustment disor avery with anxiety One tablet twice a day prn only. Last Documented On 01/25/2016 4:35PM By KIRT LARSON MD ; [facility] Ultram 50 MG Tablet 12/02/2015 - 12/30/2015 Provider: KIRT LARSON MD Diagnosis: One or two tablets four times a day as needed Last Documented On 12/30/2015 1:46PM By KIRT LARSON MD ; [facility] Nuvigil 150 MG Tablet 11/25/2015 - 01/25/2016 Provider : KIRT LARSON MD Diagnosis: One tablet daily Last Documented On 01/25/2016 4:34PM By KIRT LARSON MD ; [facility] Nuvigil 50 MG Tablet 11/14/2015 - 12/05/2015 Provider: KIRT LARSON MD Diagnosis: Circadian rhythm sleep disorder, irregular sleep wake type 1-2 tab daily as needed for shift work Last Documented On 6 11:43AM By ASHER MYERS ; [facility] Belsomra 10 MG Tablet 11/09/2015 - 12/14/2015 Provider : KIRT LARSON MD Diagnosis: Primary insomnia One tablet at bed time Last Documented On 12/14/2015 9:12AM By ASHER MYERS ; [facility] Nabumetone 750 MG Tablet 10/24/2015 - 12/14/2015 Provider: KIRT LARSON MD Diagnosis: Sciatica, right side One tablet twice a day Last Documented On 12/14/2015 9:48AM By KIRT LARSON MD ; [facility] Hydrocodone-Acetaminophen 10 -325 MG Tablet 10/24/2015 - 12/14/2015 Provider: KIRT LARSON MD Diagnosis: Sciatica, right side One tablet three times a day Last Documented On 12/14/2015 9:48AM By KIRT LARSON MD ; [facility] Cyclobenzaprine HCl 10 MG Tablet 10/24/2015 - 12/14/2015 Provider: KIRT LARSON MD Diagnosis: Sciatica, right side One tablet twice a day Last Documented On 12/14/2015 9:48AM By KIRT LARSON MD ; [facility] Ambien 10 MG Tablet 10/24/2015 - 11/14/2015 Provider: KIRT LARSON MD Diagnosis: Primary insomnia One tablet at bed time Last Documented On 11/14/2015 9:06AM By ASHER MYERS ; [facility] ALPRAZolam 0.5 MG Tablet 10/24/2015 - 12/06/2015 Provider: KIRT LARSON MD Diagnosis: Adjustment disor avery with anxiety One tablet twice a day as needed. Last Documented On 6 11:37AM By KIRT LARSON MD ; [facility] ALPRAZolam 0.5 MG Tablet 10/24/2015 - 10/24/2015 Provider: KIRT LARSON MD Diagnosis: Adjustment disor avery with anxiety One tablet twice a day as needed. Last Documented On 5 10:12AM By KIRT LARSON MD ; [facility] Gabapentin 300 MG Capsule, conventional 10/24/2015 - 12/14/2015 Provider: KIRT LARSON MD Diagnosis: Sciatica, right side One tablet at bed time Last Documented On 12/14/2015 9:48AM By KIRT LARSON MD ; [facility] ProAir HFA 108 (90 Base) MCG/ACT Aerosol, solution 10/24/2015 - 01/25/2016 Provider: KIRT LARSON MD Diagnosis: Acute bronchitis , unspecified 2 puff q 4 hours as needed o nly. Call office if using more than 2-3 times per week Last Documented On 01/25/2016 4:35PM By KIRT LARSON MD ; [facility] Keflex 500 MG Capsule, conventional 10/24/2015 - 11/14/2015 Provider: KIRT LARSON MD Diagnosis: Acute bronchitis , unspecified One tablet three times a day Last Documented On 11/14/2015 9:06AM By ASHER MYERS ; [facility] ALPRAZolam 0.5 MG Tablet 10/18/2015 - 10/24/2015 Provider: KIRT LARSON MD Diagnosis: Adjustment disor avery with anxiety One tablet twice a day as needed. Last Documented On 10/24/2015 9:47AM By KIRT LARSON MD ; [facility] ALPRAZolam 0.5 MG Tablet 10/14/2015 - 10/18/2015 Provider: KIRT LARSON MD Diagnosis: Adjustment disor avery with anxiety One tablet twice a day as needed. Last Documented On 10/18/2015 5:56PM By KIRT LARSON MD ; [facility] Ultram 50 MG Tablet 10/03/2015 - 12/02/2015 Provider: KIRT LARSON MD Diagnosis: One or two tablets four times a day as needed Last Documented On 12/02/2015 5:00PM By KIRT LARSON MD ; [facility] Ambien 10 MG Tablet 09/19/2015 - 10/24/2015 Provider: KIRT LARSON MD Diagnosis: One tablet at bed time Last Documented On 5 10:12AM By KIRT LARSON MD ; [facility] Cyclobenzaprine HCl 10 MG Tablet 09/16/2015 - 10/24/2015 Provider: KIRT Bermeo MD Diagnosis: One tablet twice a day Last Documented On 5 10:12AM By KIRT LARSON MD ; [facility] Hydrocodone-Acetaminophen 10 -325 MG Tablet 08/22/2015 - 10/24/2015 Provider: KIRT LARSON MD Diagnosis: Lumbago with sciatica, right side One tablet three times a day Last Documented On 5 10:13AM By KIRT LARSON MD ; [facility] Gabapentin 300 MG Capsule 08/22/2015 - 10/24/2015 Provider: KIRT LARSON MD Diagnosis: Lumbago with sciatica, right side One tablet at bed time Last Documented On 5 10:13AM By KIRT LARSON MD ; [facility] Nabumetone 750 MG Tablet 08/22/2015 - 10/24/2015 Provider: KIRT LARSON MD Diagnosis: Lumbago with sciatica, right side One tablet twice a day Last Documented On 5 10:13AM By KIRT LARSON MD ; [facility] Ambien 10 MG Tablet 08/22/2015 - 09/19/2015 Provider: Diagnosis: Last Documented On 09/19/2015 3:07PM By KIRT LARSON MD ; [facility] Medications Administered Includes: Administered Medications in patient's chart No Administered Medications Recorded Vital Signs Includes: Vital Signs from 01/03/2024 through 01/02/2025 Vital Name 02/14/2024 08:26A Temp-Oral (F) 98.1 Height (in) 62 Weight (lb) 185 Body Mass Index 33.8 Body Surface Area 1.8 Oxygen Saturation (%) 96 Blood Pressure Sitting L 132/98 BP Cuff Size Regular Pulse Rate-Sitting (bpm) 90 Respiration Rate (breaths/min) 22 Last Documented: On 02/14/2024 8:30AM ; [facility] Results Includes: Results from 01/03/2024 through 01/02/2025 No Results Recorded For Specified Dates History of Present Illness History of Present Illness not supported for this document type No History of Present Illness Recorded Social History Description Last Updated Excessive carbohydrate intake 08/20/2023 Last Documented On 3 2:48PM ; [facility] Food and nutrition-related knowledge def icit 08/20/2023 Last Documented On 3 2:48PM ; [facility] Inappropriate diet and eating habits Last Documented On 3 2:48PM ; [facility] No physical disability ~Works at [employer] in [place] 04/05/2022 Last Documented On 2 8:53AM ; [facility] Alcohol --seldom 03/20/2022 Last Documented On 2 8:53AM ; [facility] Drug use --THC 2x/wks 03/20/2022 Last Documented On 2 8:53AM ; [facility] Smoking status : Current everyday smoker / ppd 03/20/2022 Last Documented On 2 8:53AM ; [facility] Current smoker 12/11/2021 Last Documented On 2 11:13AM ; [facility] Good exercise habits 10/24/2020 Last Documented On 1 9:42AM ; [facility] No caffeine use 10/24/2020 Last Documented On 1 9:42AM ; [facility] No family problems 10/24/2020 Last Documented On 1 9:42AM ; [facility] No interpersonal problems 10/24/2020 Last Documented On 1 9:42AM ; [facility] No job change 10/24/2020 Last Documented On 1 9:42AM ; [facility] No recent financial changes 10/24/2020 Last Documented On 1 9:42AM ; [facility] No recent legal problems 10/24/2020 Last Documented On 1 9:42AM ; [facility] No work-related circumstances 10/24/2020 Last Documented On 1 9:42AM ; [facility] Not using alcohol 10/24/2020 Last Documented On 1 9:42AM ; [facility] Smoker 07/25/2020 Last Documented On 0 1:23PM ; [facility] Social history unchanged 10/24/2015 Last Documented On 5 12:35PM ; [facility] Currently 08/22/2015 Last Documented On 5 5:15PM ; [facility] Tobacco use 08/22/2015 Last Documented On 5 5:15PM ; [facility] Medical History Includes: Medical History in patient's chart Description Last Updated Not taking medication to lose weight Last Documented On 3 2:48PM ; [facility] LMP: 2002 10/08/2022 Last Documented On 3 11:41AM ; [facility] No recent change in medical history 09/28 Last Documented On 5 12:35PM ; [facility] No reported medical history or no signif icant history 08/22/2015 Last Documented On 5 5:15PM ; [facility] Family History Includes: Family History in patient's chart Description Last Updated Family history unchanged 10/24/2015 Last Documented On 5 12:35PM ; [facility] Review of Systems Review of Systems not supported for this document type No Review of Systems Recorded Mental Status Description No anxiety Functional Status No Functional Status Recorded Physical Exam Physical Exam not supported for this document type No Physical Exam Recorded Allergies Includes: Active, inactive, and resolved Allergies No Known Allergies Encounters Includes: Encounters from 01/03/2024 through 01/02/2025 Encounter Provider Location Date Check-In Time Check-Out Time Diagnosis CHECK UP MARTA STOREY PA-C [facility]- 02/14/20 24 8:22AM 8:51AM Chronic Bronchitis - Simple,Esophagit is Chronic Reflux,Essential Hypertension Benign,Hyperlipi demia,Assessment of Tobacco Use Insurance Includes: Active Insurance Policies Plan Name Member ID Group # Subscriber Relationship Effect sandie Dates 1 - [employer] [id number] Self Clinical Notes Includes: Signed Clinical Notes starting from 11/16/2022 * Progress note Date Encounter Last Documented by 02/14/2024 CHECK UP Last documented on 02/14/2024; 9:28 AM, MARTA STOREY PA-C; [facility] Active Problems & Conditions [...] at pharmacy was >$150 and could not pickle sorter. BP elevated today. Current Medication - Atorvastatin Calcium 20 MG Oral Tablet TAKE 1 TABLET BY MOUTH EVERY DAY, 30 days, 11 refills - hydrOXYzine HCl 25 MG Oral Tablet Bianca Angel at [facility], 0 days, 0 refills - Metoprolol Succinate [...] tablet twice a day Bianca Angel at [facility], 0 days, 0 refills Past Medical/Surgical History [...]
--- OUTSIDE RECORDS SUMMARY | 2025-01-02 12:22 | XMS_ITS | Clinical Summary ---
Author Organization [facility] Address [address] [place] [address] Phone Care Team Providers Care Mixed Signal Design Engineer Name Role Phone JAIME SNIDER MD Primary Care Provider [phone] Reason for Visit and Chief Complaint * PHONE CALL Problems Includes: Problems addressed during this encounter and other active Problems Current Visit Onset Date Resolved Date Provider Conditio n Status Tobacco Use 06/21/2020 02/05/2023 ELOISA BENJAMIN-C R esolved Last Documented On 3 9:44AM ; [facility] Tobacco Use 05/05/2017 KIRT LARSON MD [place] Last Documented On 9 5:29PM ; [facility] Tobacco Use 03/01/2016 KIRT LARSON MD Act sandie Last Documented On 7 8:54AM ; [facility] Past Visits Onset Date Resolved Date Provider Condition Status Esophagitis Chronic Reflux 02/14/2024 ELOISA STOREY PA-C Active Last Documented On 02/14/2024 8:55AM ; [facility] Note: Unchanged Allergic Rhinitis 02/14/2024 ELOISA STOREY PA-C Active Last Documented On 02/14/2024 8:55AM ; [facility] Note: Unchanged Hyperlipidemia 03/20/2022 THANH SAEED PA-C Active Last Documented On 2 5:01PM ; [facility] Bipolar Disorder Nos 07/01/2020 KIRT BLAIR MD Active Last Documented On 0 9:25AM ; [facility] Opioid Use - Uncomplicated 12/18/2019 KIRT HYMAN MD Active Last Documented On 0 3:16PM ; [facility] Cervicalgia 09/27/2019 KIRT LARSON MD Act sandie Last Documented On 9 10:46PM ; [facility] Chronic Daily Headache 11/12/2018 KIRT MCCLOUD MD Active Last Documented On 9 7:27PM ; [facility] Arthralgia Knee / Patella / Tibia / Fibula 09/01/2017 KIRT LARSON MD Active Last Documented On 7 5:29PM ; [facility] Essential Hypertension Benign 05/25/2016 KIRT LARSON MD Active Last Documented On 6 11:45AM ; [facility] Chronic Bronchitis - Simple 05/25/2016 KIRT LARSON MD Active Last Documented On 7 8:53AM ; [facility] Sleep Disorder Circadian Rhy thm, Shift Work Type 03/01/2016 KIRT LARSON MD Active Last Documented On 6 10:28AM ; [facility] Adjustment Disorder with Anxiety 10/24/2015 RAZA LARSON MD Active Last Documented On 6 10:29AM ; [facility] Primary Insomnia 10/24/2015 KIRT Muniz Active Last Documented On 6 10:28AM ; [facility] Sciatica Right Sided 10/24/2015 KIRT BLAIR MD Active Last Documented On 6 10:29AM ; [facility] Plan of Treatment Pending Tests Order Diagnosis Results Due Ordering P rovider Therapy - Physical Therapy Back Lumbago with sciatica, right side 05/29/23 ELOISA BENJAMIN-C Last Documented On 3 9:35AM ; [facility] Radiology @ [facility] - CT Scan Lumbar Spine CT w/o contrast Lumbago with sciatica, right side 07/27/23 ELOISA STOREY PA-C Last Documented On 3 9:43AM ; [facility] Referrals To Diagnosis Weight Management MESHA Claier JAVA ENGINEER-C Obesity, unspecified Last Documented On 3 2:58PM ; [facility] Diabetic Management MESHA ACEVESESTEBANConnie SPORTS DEVELOPMENT OFFICER-C Obesity, unspecified Note: weight management Last Documented On 3 11:48AM ; [facility] Assessments Includes: Assessments from this encounter [...] 4 11:00AM By Eloisa Storey PA-C ; [facility] Atorvastatin Calcium 20 MG Oral Tablet 04/02/2024 Provider: ELOISA Soto Diagnosis: Mixed hyperlipid emia TAKE 1 TABLET BY MOUTH EVERY DAY Last Documented On 4 8:24AM By Eloisa Storey PA-C ; [facility] Omeprazole 20 MG Oral Capsule Delayed Release 02/14/2024 Provider: ELOISA Berrios PA-C Diagnosis: Gastro-esophagea l reflux dis with esophagitis, without bleed TAKE 1 CAPSULE BY MOUTH EVERY DAY Last Documented On 4 8:57AM By Eloisa Storey PA-C ; [facility] Atorvastatin Calcium 40 MG Oral Tablet 02/14/2024 Provider: ELOISA STOREY PA-C Diagnosis: Hyperlipidemia, unspecified One tablet at bed time Last Documented On 4 8:57AM By Eloisa Storey PA-C ; [facility] Montelukast Sodium 10 MG Oral Tablet 02/14/2024 Provider: ELOISA Soto Diagnosis: Allergic rhiniti s, unspecified One tablet daily Last Documented On 4 8:57AM By Eloisa Storey PA-C ; [facility] Rybelsus 3 MG Oral Tablet 02/14/2024 Provider: TOMMY STOREY PA-C Diagnosis: Morbid (severe) obesity due to excess calories 1 tab daily Last Documented On 4 9:28AM By Eloisa Storey PA-C ; [facility] Ubrelvy 100 MG Oral Tablet 02/14/2024 Provider: ELOISA Soto Diagnosis: Morbid (severe) obesity due to excess calories take 1 tab at onset of heada melly. repeat after 2 hours if needed Last Documented On 4 9:28AM By Eloisa Storey PA-C ; [facility] Ubrelvy 100 MG Oral Tablet 11/14/2023 Provider: ELOISA Soto Diagnosis: Migraine w/o aur a, intractable, without status migrainosus take 1 tab at onset of migra ine. may repeat in 2 hours. max 2 tabs in 24 hours Last Documented On 4 3:43PM By Eloisa Storey PA-C ; [facility] Metoprolol Succinate ER 50 MG Oral Tablet Extended Release 24 Hour 04/29/2023 Provider: ELOISA HARRELL PA-C Diagnosis: Essential (prima ry) hypertension TAKE 1 TABLET BY MOUTH EVERY DAY Last Documented On 3 8:35AM By Eloisa Storey PA-C ; [facility] Xanax 0.25 MG Oral Tablet 10/24/2022 Provider: Diagnosis: [facility] Le[facility] [place] Last Documented On 2 9:53AM By Eloisa Storey PA-C ; [facility] hydrOXYzine HCl 25 MG Oral Tablet 10/24/2022 Provide r: Diagnosis: Bianca Lealan at [place] Last Documented On 2 9:54AM By Eloisa Storey PA-C ; [facility] Medications Administered Includes: Administered Medications from this encounter No Administered Medications Recorded Results Includes: Results discussed during this encounter No Results Recorded For Specified Dates History of Present Illness Includes: History of Present Illness from this encounter No History of Present Illness Recorded Social History Description Last Updated Alcohol --seldom 03/20/2022 Last Documented On 3 1:15PM ; [facility] Drug use --THC 2x/wks 03/20/2022 Last Documented On 3 1:15PM ; [facility] Smoking status : Current everyday smoker 1/2 ppd 03/20/2022 Last Documented On 3 1:15PM ; [facility] Current smoker 12/11/2021 Last Documented On 3 1:15PM ; [facility] Smoker 07/25/2020 Last Documented On 3 1:15PM ; [facility] Social history unchanged 10/24/2015 Last Documented On 3 1:15PM ; [facility] Currently 08/22/2015 Last Documented On 3 1:15PM ; [facility] Tobacco use 08/22/2015 Last Documented On 3 1:15PM ; [facility] Medical History Includes: Medical History addressed during this encounter Description Last Updated LMP: 2002 10/08/2022 Last Documented On 3 1:15PM ; [facility] No recent change in medical history 09/28 Last Documented On 3 1:15PM ; [facility] Family History Includes: Family History addressed during this encounter Description Last Updated Family history unchanged 10/24/2015 Last Documented On 3 1:15PM ; [facility] Review of Systems Includes: Review of [...] Subscriber Relationship Effect sandie Dates - T [phone] [id number] RK L NULL Self Clinical Notes Includes: Clinical Notes from this encounter * Progress note Date Encounter Last Documented by 07/18/2023 * PHONE CALL Last documented on 07/18/2023; 1:50 PM, ELOISA STOREY PA-C; [facility] [...] for call: Patient would like referral to [facility] for weight loss. pt phone # for return call: Date/Initials: 07/18/23, W. Current Medication - Anoro Ellipta 62.5-25 MCG/INH Inhalation Aerosol Powder Breath Activated as directed use once a day at bedtime,, 90 days, 2 refills - Armodafinil 250 MG Oral Tablet Bianca Stanley at [place], 0 days, 0 refills - Atorvastatin Calcium 20 MG Oral Tablet TAKE 1 TABLET BY MOUTH EVERY DAY, 30 days, 11 refills - hydrOXYzine HCl 25 MG Oral Tablet Bianca Stanley at [place], 0 days, 0 refills - Metoprolol Succinate [...] tablet twice a day Bianca Stanley at [place], 0 days, 0 refills - Zolpidem Tartrate [...]
--- OUTSIDE RECORDS SUMMARY | 2025-01-02 12:22 | XMS_ITS | Continuity of Care Document ---
Author Organization [facility] Address [address] [place] [address] Phone Care Team Providers Care Transit Worker Name Role Phone Brian Sanz MD Unavailable Unavailable Allergies, Adverse Reactions, Alerts Substance Reaction Status Criticality No Known Allergies Active No Inform ation Medications Medication Instructions Dosage Effective Dates (start - stop) Status Comments Xanax 2 mg tablet take 1 tablet (2MG) by oral route 3 times every day 2 MG - Active avoid driving or operate machines Ambien 5 mg tablet take 1 Tablet (5MG) by oral route every bedtime at bedtime 5 MG - Active Nuvigil 150 mg tablet take 1 tablet (150MG) by oral route every day in the morning 150 MG - Active Procedures Procedure Date OFFICE/OUTPATIENT VISIT, EST OFFICE/OUTPATIENT VISIT, EST OFFICE/OUTPATIENT VISIT, EST OFFICE/OUTPATIENT VISIT, EST OFFICE/OUTPATIENT VISIT, EST OFFICE/OUTPATIENT VISIT, EST OFFICE/OUTPATIENT VISIT, EST OFFICE/OUTPATIENT VISIT, EST Advance Directives Directive Yes / No Effective Date File Name No Information Encounters Encounter Description Practice Location Reason(s) For Visit Diagnoses Date Provider Providers Copied on Encounter OFFICE/OUTPA TIENT VISIT, EST [facility], [address] [place], [id number], [place] tel:[phone] [facility] Medicine anxiety (chief complaint) fatigue (chief complaint) INsomnia (chief complaint) Fatigue / MalaiseInsomnia, OtherGeneralized anxiety disorderHypertensio n, Unspecified 3 Yvon Torres. [address], [place], [place], [address] , [place]. tel:[phone] Referring Provider: Brian Sanz, [address], [place], [place], [id number]. tel:[phone] OFFICE/OUTPA TIENT VISIT, [facility], [address], [place], [place], [address], [place] tel:[phone] [facility] anxiety (chief complaint) Fatigue (chief complaint) Insomnia (chief complaint) Fatigue / MalaiseInsomnia, OtherGeneralized anxiety disorder 0 3 Yvon Torres. [address], [place], [place], [address] , [place]. [phone] Referring Provider: Brian Sanz, [address], [place], [place], [address]. tel:[phone] OFFICE/OUTPA TIENT VISIT, [facility], [address], [place], [place], [address], [place] tel:[phone] [facility] anxiety (chief complaint) fatigue (chief complaint) headache (chief complaint) Insomnia, OtherGeneralized anxiety disorderFatigue / Malaise 3 Yvon Torres. [address], [place], [place], [address] , [place]. tel:[phone] Referring Provider: Brian Sanz, [address], [place], [place], [id number]. tel:[phone] OFFICE/OUTPA TIENT VISIT, [facility], [address], [place], [place], [address], [place] tel:[phone] [facility] fatigue (chief complaint) insomaia (chief complaint) anxiety (chief complaint) headache (chief complaint) HeadacheInsomnia, OtherFatigue / MalaiseGeneralized anxiety disorder 3 Yvon Torres. [address], [place], [place], [address] , [place]. tel:[phone] Referring Provider: Brian Sanz [address], [place], [place], [address]. tel:[phone] OFFICE/OUTPA TIENT VISIT, [facility], [address], [place], [place], [address], [place] [phone] [facility] anxiety (chief complaint) Insomnia (chief complaint) fatigue (chief complaint) Fatigue / MalaiseInsomnia, OtherGeneralized anxiety disorder Dec 2 Yvon Torres. [address], [place], [place], [address] , [place]. tel:[phone] Referring Provider: Kyle Ste[address], [place], [place], [id number]. tel:[phone] OFFICE/OUTPA TIENT VISIT, [facility], [address], [place], [place], [address], [place] tel:[phone] [facility] back pain (chief complaint) anxiety (chief complaint) sore throat (chief complaint) Acute upper respiratory infections of other multiple sitesLumbagoGeneral ized anxiety disorderInsomnia, Other 2 Yvon Torres. [address], [place], [place], [address] , [place]. [phone] Referring Provider: Kyle [address], [place], [place], [address]. tel:[phone] OFFICE/OUTPA TIENT VISIT, [facility], [address], [place], [place], [address], [place] [phone] [facility] fastigue (chief complaint) anxiety (chief complaint) back pain (chief complaint) abdominal pain (chief complaint) insomnia (chief complaint) LumbagoFatigue / MalaiseGeneralized anxiety disorderAbdominal PainInsomnia, Other 0201 2 Yvon Torres. [address], [place], [place], [address] , [place]. tel:[phone] Referring Provider: Kyle Ste[address], [place], [place], [address]. tel:[phone] OFFICE/OUTPA TIENT VISIT, EST [facility], [address] [place], [place], [id number], tel:[phone] [facility] anxiety (chief complaint) headache (chief complaint) ADD (chief complaint) HeadacheAttention deficit disorder of childhood without mention of hyperactivityGenera lized anxiety disorder 2 Yvon Torres. [address], [place], [place], [address] , [place]. tel:[phone] Family History Family Member Type Diagnosis Age [...] Mental Status Date Cognitive Assessment Orientation - Alva ed to time, place, person, situation.
[2025-01-02 12:27] VITALS: BP 147/87; PULSE 84; RESP 16; TEMP 36.6
--- NOTE | 2025-01-02 12:46 | ED.GENADULT ---
HPI - General Adult General Chief complaint: Upper Respiratory Infection Stated complaint: no voice/throat Source: patient Mode of arrival: ambulatory Limitations: no limitations History of Present Illness HPI narrative: Patient presents for evaluation of hoarse voice. Symptom onset 6 days ago. She had similar symptoms 3 weeks ago at which time she also had sinus symptoms. Those symptoms resolved. She has an occasional cough and indicates that she also has bilateral ear pain. She denies any fever, chills, nausea, vomiting or diarrhea. 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 She smokes 1/4 ppd. Related Data Home Medications ?Medication ?Instructions ?Recorded ?Confirmed ?Last Taken ?Type alprazolam 0.5 mg tablet 0.5 mg PO BID 01/31/22 01/20/23 Unknown History armodafinil 250 mg tablet 250 mg PO DAILY 01/31/22 01/20/23 Unknown History zolpidem 10 mg tablet 10 mg PO DAILY 01/31/22 01/20/23 Unknown History omeprazole 20 mg capsule,delayed mg 01/02/25 Unknown History release Allergies Allergy/AdvReac Type Severity Reaction Status Date / Time No Known Allergies Allergy Verified 01/02/25 12:25 Review of Systems Review of Systems: CONSTITUTIONAL: Denies fever, chills, or sweats. EYES: Denies visual changes, redness, or discharge. ENT: Reports hoarse voice, scratchy throat and bilateral otalgia. Denies rhinorrhea and congestion. CARDIOVASCULAR: Denies chest pain, palpitations, or edema. RESPIRATORY: Reports cough. Denies shortness of breath. GASTROINTESTINAL: Denies abdominal pain, nausea, vomiting, or diarrhea. GENITOURINARY: Denies dysuria or hematuria. SKIN: Denies rash or itching. MUSCULOSKELETAL: Denies back pain, joint pain, or myalgia. NEUROLOGIC: Denies headache, numbness, dizziness, or weakness. PSYCHIATRIC: Denies anxiety or depression. [facility] Past Medical History Medical History Migraine High cholesterol COPD (chronic obstructive pulmonary disease) Surgical History Surgical History History of History of hysterectomy Family History Family History (Reviewed 01/02/25 @ 12:50 by Bill Lovell, [facility]) Mother Family history non-contributory Social History Social History Smoking packs per day: 0.5 Smoking cigarettes per day: 10.0 Smoking status: Current every day smoker Tobacco type: cigarettes Substance use: current Substance use type: marijuana Gender identity (if verbalized by the patient): Female Spiritual care concerns: No Exam Narrative: GENERAL: Well-appearing, well-nourished, and in no acute distress. HEAD: Normocephalic, atraumatic. EYES: PERRLA and EOMI. ENT: Nares clear, no rhinorrhea or epistaxis. Mucous membranes moist. Oropharynx without tonsillar hypertrophy exudate or other lesions. There is posterior pharyngeal erythema present. Bilateral TMs pearly ellington nonbulging NECK: Supple. No adenopathy or masses. No carotid bruits or JVD CHEST: Clear to auscultation. No respiratory distress. No wheezes rales or rhonchi HEART: Regular rate and rhythm. No murmur heard. Normal peripheral pulses. ABDOMEN: Soft, nontender, nondistended, normal active bowel sounds. EXTREMITIES: Normal range of motion. No edema. SKIN: Warm, dry, no rash. NEURO: No focal deficits. Alert and oriented x3. PSYCH: Normal mood and affect. Course Course Emergency Course: This is a 49-year-old female who presented for evaluation of hoarse voice. Rapid strep was negative. I suspect she has laryngitis. Patient like to be treated for strep in the event that her test was a false negative. Will dc with augmentin. Increase hydration. OTC agents for symptom management. Advised on smoking cessation. Follow up with primary provider. Go to the ER for worsening symptoms. Pt in agreement with plan of care. Level of Care: Express Care Visit Vital Signs Vital signs: Vital Signs Temperature 36.6 C 01/02/25 12:27 Pulse Rate 84 01/02/25 12:27 Respiratory Rate 16 01/02/25 12:27 Blood Pressure 147/87 H 01/02/25 12:27 Oxygen Delivery Room Air 01/02/25 12:27 Temperature 36.6 C 01/02/25 12:27 Pulse Rate 84 01/02/25 12:27 Respiratory Rate 16 01/02/25 12:27 Blood Pressure 147/87 H 01/02/25 12:27 Oxygen Delivery Room Air 01/02/25 12:27 Medical Decision Making Vital Signs Vital Signs: Vital Signs Temperature 36.6 C 01/02/25 12:27 Pulse Rate 84 01/02/25 12:27 Respiratory Rate 16 01/02/25 12:27 Blood Pressure 147/87 H 01/02/25 12:27 Oxygen Delivery Room Air 01/02/25 12:27 Temperature 36.6 C 01/02/25 12:27 Pulse Rate 84 01/02/25 12:27 Respiratory Rate 16 01/02/25 12:27 Blood Pressure 147/87 H 01/02/25 12:27 Oxygen Delivery Room Air 01/02/25 12:27 Lab Data Labs: Lab Results 01/02/25 Range/Units 12:57 POC Grp A Strep Screen Negative (Negative) Discharge Plan Discharge Clinical Impression: Pharyngitis Patient Disposition: Home, Self-Care Condition: Stable Instructions: Antibiotic Form, Pharyngitis (ED) Patient Language: Malagasy Prescriptions: New amoxicillin-pot clavulanate 875-125 mg tablet 1 tablet PO Q12H Qty: 20 0RF No Action armodafinil 250 mg tablet 250 mg PO DAILY alprazolam 0.5 mg tablet 0.5 mg PO BID zolpidem 10 mg tablet 10 mg PO DAILY omeprazole 20 mg capsule,delayed release(DR/EC) Follow-up/Referrals: Gilbert Nguyen MD [Physician] - Time of Disposition: 13:07
[2025-01-02 12:58] LABS: EDSTREPNEGPOS1 Negative (Negative)
== END 2025-01-02 13:15 | disposition home or self-care (01) ==
PROVIDERS: Emergency Provider Nurse Practitioner
DX: J02.9 Acute pharyngitis, unspecified (principal); E78.00 Pure hypercholesterolemia, unspecified; J44.9 Chronic obstructive pulmonary disease, unspecified; F17.210 Nicotine dependence, cigarettes, uncomplicated; F12.90 Cannabis use, unspecified, uncomplicated
CPT/HCPCS: 87081; 87880; 99213; G0463